=== PATIENT | male | born 1950 | race Caucasian/White ===

== ENCOUNTER 2016-07-31 07:30 | Inpatient (IN) | payer OTHER ==
--- NOTE | 2016-07-29 22:09 | Pre-op HX & Phy Repo 2 SIG ---
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 The patient has a past history of ulcerative colitis and underwent proctocolectomy with conventional Susannah ileostomy in 1972. In April 2012, he underwent creation of a King type of Kock pouch continent ileostomy in [place]. He required several revisions and then in April 2015 underwent resection of his failed continent ileostomy with creation of a new King continent ileostomy. In February 2016 he required laparotomy with revision of the valve and access segment and stoma because of difficulty with intubation and incontinence. The patient initially did well after that surgery, but in early April 2016 developed prolapse of the nipple valve. He tried to use a large stent, but two of them may have gone through a wide open stoma into the pouch and he has used a baby pacifier to keep the prolapse reduced. He does not have any difficulty with intubation once he reduces the prolapse and he is having no incontinence. He keeps the baby pacifier in place within the stoma with a binder. He has intermittently required Flagyl orally for symptoms of pouchitis with rumbling and increased gas. The patient is scheduled to undergo endoscopy of his pouch and laparotomy to correct the prolapse of his King pouch. PAST MEDICAL HISTORY: MEDICATIONS: Norvasc for hypertension, Inderal for essential tremor, Cipro and/or Flagyl as needed for pouchitis. ALLERGIES: none. OPERATIONS: Please see complete list at the end of this dictation. In addition, he has undergone repair of an inguinal hernia, but is not sure which side. PHYSICAL EXAMINATION: VITAL SIGNS: The patient is 6 feet 5 inches and approximately 250 pounds. [place] and will be examined upon arrival and dictated separately. IMPRESSION: 1. 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 History of ulcerative colitis. 3. Hypertension. 4. Essential tremor. 5. STATUS POST MULTIPLE ABDOMINAL OPERATIONS: 5.1. Proctocolectomy and Susannah ileostomy in 1972. 5.2. King continent ileostomy in 04/2012. 5.3. Creation of new valve and collar for King pouch in 10/2012. 5.4. Creation of another new valve and collar in 02/2013. 5.5. Repair of King pouch slipped valve in 02/2014. 5.6. Revision of King pouch and repair of incisional hernia and parastomal hernia in 10/2014 (all of these operations were performed elsewhere) 5.7. Laparotomy with resection of failed King continent ileostomy and creation of a new King continent ileostomy pouch 05/02/2015. 5.8. Laparotomy with revision of the King pouch valve, access segment and stoma and repair of recurrent incisional hernia 03/05/2016. DISCUSSION: I have had a complete discussion with the patient regarding the nature of his condition, the need for pouch endoscopy which does not require anesthesia or sedation, which he has been through before, and the need for laparotomy to stabilize the prolapsed valve. I have discussed the general and specific risks of the operation including the potential for continued problems with his pouch despite the best efforts of the surgeons. I will have another full discussion in person when he arrives [place]. Regan Marc M.D. DR: Jaciel JOB#: [id number] CC: DANNY
[~2016-07-31] VITALS: Ht 198.1 cm; Wt 120.2 kg
[~2016-07-31 07:30] MED LIST: AMLODIPINE BESY10 MG ORAL; BENAZEPRIL HCL20 MG ORAL; INDERAL LA60 MG ORAL; MULTI VITAMIN1 EACH ORAL; VITAMIN C1000 M3 PO
[2016-07-31 10:30] VITALS: BP 151/77
[2016-07-31 11:28] LABS: BASOPHILS % (AUTO) 0.9 % (0.0-2.0); EOSINOPHILS % (AUTO) 2.8 % (0.0-3.0); LYMPHOCYTES % (AUTO) 22.5 % (20.0-45.0); MEAN CORPUSCULAR HEMOGLOBIN 30.9 PG (27.0-31.0); MEAN CORPUSCULAR HGB CONC 34.5 G/DL (32.0-36.0); MEAN CORPUSCULAR VOLUME 90 FL (80-99); MONOCYTES % (AUTO) 13.5 % (1.0-10.0); NEUTROPHILS % (AUTO) 60.3 % (45.0-75.0); PLATELET COUNT 273 K/UL (150-450); RED BLOOD COUNT 5.08 M/UL (4.70-6.10); RED CELL DISTRIBUTION WIDTH 11.2 % (11.6-14.8); WHITE BLOOD COUNT 4.4 K/UL (4.8-10.8)
[2016-07-31] MEDS ORDERED: Sodium Bicarbonate 8.4% 50ml Carp IV ONE (11:30)
[2016-07-31] MEDS ORDERED: Heparin 2000 units/Ns 1000ml INJ ONE (11:30)
[2016-07-31] MEDS ORDERED: Lidocaine 1% Plain 30 ml INJ ONE (11:30)
[2016-07-31 11:41] LABS: APPEARANCE,URINE CLEAR; KETONES,URINE NEGATIVE (NEGATIVE); LEUKOCYTE ESTERASE ,URINE NEGATIVE (NEGATIVE); NITRITE,URINE NEGATIVE (NEGATIVE); PH,URINE 5 (4.5-8.0); PROTEIN,URINE 4+ (NEGATIVE); UROBILINOGEN,URINE NORMAL MG/DL (0.0-1.0)
[2016-07-31 11:57] LABS: ALBUMIN/GLOBULIN RATIO 1.5 (1.0-2.7); CALCIUM 9.6 mg/dL (8.6-10.2); CREATININE 1.5 mg/dL (0.7-1.2); TOTAL PROTEIN 7.5 g/dL (6.6-8.7)
[2016-07-31 12:00] VITALS: BP 149/77
[2016-07-31 12:00] LABS: RBC,URINE 0-2 /HPF (0 - 0); SQUAMOUS EPITHELIAL CELL,UR FEW /LPF (NONE/OCC); WBC,URINE 0-2 /HPF (0 - 0)
[2016-07-31] MEDS ORDERED: Sodium Bicarbonate 8.4% 50ml Inj IV ONE (12:00)
[2016-07-31] MEDS: Neomycin Sulfate 500mg Tab ORAL SCH ×3 (12:00→21:05)
--- NOTE | 2016-07-31 12:02 | General Progress Note ---
Progress Note Progress Note H&P dictated. Cr 1.5 Will start IV hydration this afternoon and repeat CBC,BMP in AM before surgery Plan: endoscopy of King pouch DACIA MORELOS July 31, 2016 12:02
--- NOTE | 2016-07-31 12:03 | Pre-Procedure Note/Attestation ---
Pre-Procedure Note/Attestation Complete Prior to Procedure Planned Procedure: not applicable Procedure Narrative: King continent ileostomy pouch endoscopy Indications for Procedure Pre-Operative Diagnosis: Malfunctioning King continent ileostomy with valve prolapse Attestation I attest that I discussed the nature of the procedure; its benefits; risks and complications; and alternatives (and the risks and benefits of such alternatives ), prior to the procedure, with the patient (or the patient's legal screening representative). I attest that, if there was a reasonable possibility of needing a blood transfusion, the patient (or the patient's legal screening representative) was given the [facility] standardized written summary, pursuant to the Lucien Allan Blood Safety Act ([place] Health and Safety Code # 1645, as amended). I attest that I re-evaluated the patient just prior to the surgery and that there has been no change in the patient's H&P, except as documented below: none DACIA MORELOS July 31, 2016 12:03
--- NOTE | 2016-07-31 12:36 | Brief Operative Note ---
Immediate Post Operative Note Operative Note Pre-op Diagnosis: Malfunctioning King continent ileostomy with valve prolapse Procedure: King pouch endoscopy Post-op Diagnosis: distortion of valve tip of King pouch Post-op Diagnosis: same as pre-op Findings: consistent w/pre-op dx studies Surgeon: nataly Anesthesia: other - none Specimen: none Complications: none Condition: stable Estimated Blood Loss: none Drains: other - 28 Fioley to King pouch Implant(s) used?: DACIA Smith July 31, 2016 12:36
--- NOTE | 2016-07-31 13:19 | Diagnostic Imaging Report ---
Indication: Chest Pain Comparison: 05/01/15 A single view chest radiograph was obtained. Findings: The lungs are clear. Heart is normal in size. Aorta is mildly ectatic. There is a left PICC line which is in good position with the tip in the SVC. Bones are unremarkable. In pression: No acute disease. PICC line in good position
[2016-07-31] MEDS: D5 1/2NS w/KCl 20mEq 1,000 ML IV SCH (14:12)
--- NOTE | 2016-07-31 14:15 | Diagnostic Imaging Report ---
Indication: Abdominal pain Comparison: 05/11/15 Single view of the abdomen obtained Findings: Bowel gas pattern is nonspecific. No mass, ectopic calcifications, or abnormal gas collections are identified. Degenerative changes of the lumbar and thoracic spine appear moderate. Surgical clips noted within the abdomen. Impression: No acute findings
--- NOTE | 2016-07-31 15:25 | Anethesia Preoperative Eval ---
Anesthesia Pre-op PMH/ROS General Date of Evaluation: July 31, 2016 Time of Evaluation: 15:20 Anesthesiologist: amandeep ASA Score: ASA 3 Mallampati Score Class I : Soft palate, uvula, fauces, pillars visible Class II: Soft palate, uvula, fauces visible Class III: Soft palate, base of uvula visible Class IV: Only hard plate visible Mallampati Classification: Class II Surgeon: Monico Diagnosis: Malfunctioning continent pouch Surgical Procedure: Ex laparotomy revision of continent pouch Anesthesia History: none Family History: no anesthesia problems Allergies: Coded Allergies: No Known Allergies (Unverified , 07/31/16) Medications: see eMAR Past Medical History Cardiovascular: Reports: HTN, Denies: CAD, NE, arrhythmia, other, valve dz Pulmonary: Denies: COPD, IAD, asthma, other Gastrointestinal/Genitourinary: Reports: GERD, other - UC s/p colectomy, Denies: CRI, ESRD Neurologic/Psychiatric: Denies: CVA, TIA, dementia, depression/anxiety, other Endocrine: Denies: DM, hypothyroidism, other, steroids HEENT: Denies: KOOTENAI (L), KO[place]ENAI (R), cataract (L), cataract (R), glaucoma, other Hematology/Immune: Denies: DVT, anemia, bleeding disorder, other Musculoskeletal/Integumentary: Denies: DDD, DJD, OA, RA, edema, other Other: obesity PMH Narrative: as above PSxH Narrative: Multiple abdominal Sx for creation and maintenance of continence pouch Anesthesia Pre-op Phys. Exam Physician Exam Last Vital Signs Date Time Temp Pulse Resp B/P Pulse Ox O2 Delivery O2 Flow Rate FiO2 07/31/16 12:00 97.0 54 20 149/77 96 Room Air Constitutional: NAD Neurologic: CN 2-12 intact Cardiovascular: RRR, no M/R/G Respiratory: CTA Gastrointestinal: S/NT/ND Airway Exam Mallampati Score: Class III MO: limited Neck: stiff ROM: limited Teeth: intact Dentures: no lower, no upper Anesthesia Pre-op A/P Labs Hematology Test 07/31/16 10:30 White Blood Count 4.4 K/UL (4.8-10.8) L Red Blood Count 5.08 M/UL (4.70-6.10) Hemoglobin 15.7 G/DL (14.2-18.0) Hematocrit 45.6 % (42.0-52.0) Mean Corpuscular Volume 90 FL (80-99) Mean Corpuscular Hemoglobin 30.9 PG (27.0-31.0) Mean Corpuscular Hemoglobin Concent 34.5 G/DL (32.0-36.0) Red Cell Distribution Width 11.2 % (11.6-14.8) L Platelet Count 273 K/UL (150-450) Mean Platelet Volume 5.0 FL (6.5-10.1) L Neutrophils (%) (Auto) 60.3 % (45.0-75.0) Lymphocytes (%) (Auto) 22.5 % (20.0-45.0) Monocytes (%) (Auto) 13.5 % (1.0-10.0) H Eosinophils (%) (Auto) 2.8 % (0.0-3.0) Basophils (%) (Auto) 0.9 % (0.0-2.0) Coagulation Test 07/31/16 10:30 Prothrombin Time 10.0 SEC (9.30-11.50) Prothromb Time International Ratio 1.0 (0.9-1.1) Activated Partial Thromboplast Time 29 SEC (23-33) Chemistry Test 07/31/16 10:30 Sodium Level 140 mEQ/L (135-145) Potassium Level 4.0 mEQ/L (3.4-4.9) Chloride Level 100 mEQ/L (98-107) Carbon Dioxide Level 25 mEQ/L (20-30) Anion Gap 15 (5-15) Blood Urea Nitrogen 19 mg/dL (7-23) Creatinine 1.5 mg/dL (0.7-1.2) H Estimat Glomerular Filtration Rate 47.0 mL/min (>60) Glucose Level 90 mg/dL (74-106) Calcium Level 9.6 mg/dL (8.6-10.2) Total Bilirubin 0.8 mg/dL (0.0-1.2) Aspartate Amino Transf (AST/SGOT) 32 U/L (5-40) Alanine Aminotransferase (ALT/SGPT) 33 U/L (3-41) Alkaline Phosphatase 67 U/L (40-129) Total Protein 7.5 g/dL (6.6-8.7) Albumin 4.5 g/dL (3.5-5.2) Globulin 3.0 g/dL Albumin/Globulin Ratio 1.5 (1.0-2.7) Risk Assessment & Plan Assessment: ASA 3 Plan: GA with ANYI JORDAN M.D. July 31, 2016 15:25
[2016-07-31 16:00] VITALS: BP 160/91
[2016-07-31] MEDS ORDERED: D5 1/2NS w/KCl 20mEq 1,000 ML IV SCH (18:00)
[2016-07-31 20:00] VITALS: BP 150/89
[2016-07-31] MEDS ORDERED: Zolpidem 5mg tab ORAL PRN ×2 (21:00→23:00)
--- NOTE | 2016-07-31 21:48 | Pre-op HX & Phy Repo 2 SIG ---
DATE OF ADMISSION: 07/31/2016 HISTORY OF PRESENT ILLNESS: The [place] now [place]. Please see previously dictated history. PHYSICAL EXAMINATION: GENERAL: He is well developed and well nourished, 6 foot 5 inches and approximately 250 pounds. HEENT: Within normal limits. LUNGS: Clear. HEART: Regular rhythm. BREASTS: Without masses. ABDOMEN: Soft. There is a long left paramedian scar with a small incisional hernia in the upper third of the incision. The stoma of the King continent ileostomy pouch is low on the right lower quadrant with prolapse of the nipple valve, which can be manually reduced. Testes and scrotum: negative RECTAL: Status post proctectomy. EXTREMITIES: Without edema. Pulses 2+ femoral to pedal bilateral NEUROLOGIC: Physiologic. IMPRESSION: 1. 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 History of ulcerative colitis. 3. Hypertension. 4. Essential tremor. 5. Status post multiple abdominal operations 5.1. Proctocolectomy and Susannah ileostomy in 1972. 5.2. King continent ileostomy in April 2012. 5.3. Creation of new valve and collar for King pouch in October 2012 5.4. Creation of another new valve and collar in February 2013. 5.5. Repair of King pouch slipped valve in February 2014. 5.6. Revision of King pouch and repair of incisional hernia and parastomal hernia in October 2014 (all of these operations were performed elsewhere) 5.7. Laparotomy with resection of failed continent ileostomy and creation of new King pouch on 05/02/2015. 5.8. Laparotomy with revision of King pouch valve, access segment and stoma and repair of recurrent incisional hernia on 03/05/2016. DISCUSSION: The patient will undergo endoscopy and will be prepared with insertion of a dual lumen PICC line, bowel prep, intravenous hydration and continuous drainage of his King pouch with preparation for surgery in the morning. This will include laparotomy with opening the pouch and re-stabilizing the nipple valve to prevent any additional prolapse. I have discussed the nature of the surgery, indications, alternatives, options, and risks. He understands and agrees to proceed. Regan Marc M.D. DR: TONEY JOB#: [id number] CC: DANNY
--- NOTE | 2016-07-31 23:28 | Procedure Note ---
DATE OF PROCEDURE: 07/31/2016 ENDOSCOPIST: Regan Marc M.D. ANESTHESIA: None. SEDATION: None. PRE-ENDOSCOPY DIAGNOSES: 1. Malfunctioning King continent ileostomy with prolapse of the nipple valve. 2. History of ulcerative colitis. 3. Status post multiple abdominal operations including proctocolectomy, King pouch, and multiple revisions. POST-ENDOSCOPY DIAGNOSES: 1. Malfunctioning King continent ileostomy with prolapse of the nipple valve. 2. History of ulcerative colitis. 3. Status post multiple abdominal operations including proctocolectomy, King pouch, and multiple revisions. ENDOSCOPY PERFORMED: King continent ileostomy pouch endoscopy. FINDINGS: Prolapse of the nipple valve, which can be manually reduced with a normal pouch and mild distortion of the tip of the valve. DESCRIPTION OF PROCEDURE: The patient was positioned supine in the GI lab without any anesthesia or sedation given or required. Using a GIF-P140 endoscope, the endoscope was introduced into the stoma and a straight passageway into the pouch was observed with the distance to the tip of the valve approximately 9 cm. The pouch was distensible and mucosa appeared normal. I could not visualize any retained stents. Retroflexed views revealed the nipple valve to be fairly well formed, but with a fishmouth deformity of the tip even though the patient is not having any incontinence. Withdrawal views confirmed the above findings. Following the endoscopy, I was able to readily insert a 28-Swedish Mohr catheter into the pouch and evacuated retained air and connected it to gravity drainage bag, taped it to the skin with a dressing over the stoma. The patient tolerated the endoscopy well and will undergo surgery tomorrow for prolapse of the nipple valve of his King pouch. Regan Marc M.D. DR: Jaciel JOB#: [id number] CC:
[2016-08-01] VITALS (14 sets, daily range): BP systolic 123–154; BP diastolic 74–102
[2016-08-01] MEDS: Ampicillin/Sulbactam Sod 3 GM in NS 110 ML IVPB SCH ×3 (00:23→11:38)
[2016-08-01] MEDS: metroNIDAZOLE 500mg 100 ML IVPB SCH ×3 (00:23→11:38)
[2016-08-01] MEDS: D5 1/2NS w/KCl 20mEq 1,000 ML IV SCH (00:23)
[2016-08-01] MEDS ORDERED: Heparin 5000 units/ml inj SUBQ ONE (05:30)
--- NOTE | 2016-08-01 07:14 | Pre-Procedure Note/Attestation ---
Pre-Procedure Note/Attestation Complete Prior to Procedure Planned Procedure: not applicable Procedure Narrative: laparotomy and revision King continent ileostomy, possible gastrostomy Indications for Procedure Pre-Operative Diagnosis: Malfunctioning King continent ileostomy with valve prolapse Attestation I attest that I discussed the nature of the procedure; its benefits; risks and complications; and alternatives (and the risks and benefits of such alternatives ), prior to the procedure, with the patient (or the patient's legal customer loyalty representative). I attest that, if there was a reasonable possibility of needing a blood transfusion, the patient (or the patient's legal customer loyalty representative) was given the [facility] standardized written summary, pursuant to the Lucien Colfax Blood Safety Act ([place] Health and Safety Code # 1645, as amended). I attest that I re-evaluated the patient just prior to the surgery and that there has been no change in the patient's H&P, except as documented below: none DACIA MORELOS August 01, 2016 07:14
[2016-08-01] MEDS ORDERED: Sterile Water Irrig 1000ml IRRIG ONE (07:30)
[2016-08-01] MEDS ORDERED: Nimbex 2mg/ml Inj 10ML IVP ONE (07:30)
[2016-08-01] MEDS ORDERED: fentaNYL 100 mcg/2 mL IV ONE (07:30)
[2016-08-01] MEDS ORDERED: Propofol 10mg/ml 20ml IV ONE (07:30)
[2016-08-01] MEDS ORDERED: NS Irrig 1000ml ONE (07:30)
[2016-08-01] MEDS ORDERED: Midazolam 2mg/2ml Inj ONE (07:30)
[2016-08-01] MEDS ORDERED: ePHEDrine 50mg/ml Inj ONE (07:30)
[2016-08-01 07:54] LABS: BASOPHILS % (AUTO) 0.5 % (0.0-2.0); EOSINOPHILS % (AUTO) 3.4 % (0.0-3.0); LYMPHOCYTES % (AUTO) 20.7 % (20.0-45.0); MEAN CORPUSCULAR HEMOGLOBIN 31.5 PG (27.0-31.0); MEAN CORPUSCULAR HGB CONC 35.3 G/DL (32.0-36.0); MEAN CORPUSCULAR VOLUME 89 FL (80-99); MEAN PLATELET VOLUME 5.3 FL (6.5-10.1); MONOCYTES % (AUTO) 16.1 % (1.0-10.0); NEUTROPHILS % (AUTO) 59.3 % (45.0-75.0); PLATELET COUNT 187 K/UL (150-450); RED BLOOD COUNT 4.21 M/UL (4.70-6.10); RED CELL DISTRIBUTION WIDTH 11.4 % (11.6-14.8); WHITE BLOOD COUNT 3.8 K/UL (4.8-10.8)
[2016-08-01 08:07] LABS: CALCIUM 8.5 mg/dL (8.6-10.2); CREATININE 1.3 mg/dL (0.7-1.2); GLOMERULAR FILTRATION RATE 55.4 mL/min (>60); POTASSIUM 3.5 mEQ/L (3.4-4.9)
[2016-08-01] MEDS ORDERED: Bacitracin 50000 Units Vial IRRIG ONE (08:26)
--- NOTE | 2016-08-01 08:41 | Brief Operative Note ---
Immediate Post Operative Note Operative Note Pre-op Diagnosis: malfunctioning BCIR Procedure: laparotomy, revision BCIR ilieostomy Post-op Diagnosis: same as pre-op Surgeon: nataly Phlebotomy Specialist: melly Anesthesiologist: susana Anesthesia: general Specimen: none Complications: none Condition: stable Fluids: 0.9 NS LYNNE RAMEY August 01, 2016 08:41
--- NOTE | 2016-08-01 08:42 | Immediate Post-Op Evaluation ---
Immediate Post-Op Evalulation Immediate Post-Op Evalulation Procedure: laparotomy, revision BCIR ileostomy Date of Evaluation: August 01, 2016 IV Fluids: 0.9 NS LYNNE RAMEY August 01, 2016 08:42
[2016-08-01] MEDS: Propranolol LA 60mg cap ORAL SCH (09:00)
--- NOTE | 2016-08-01 09:10 | Diagnostic Imaging Report ---
Indication: buttermaker helper venous access Findings: After the indications, procedure, risks, complications, and alternatives of the procedure were explained, written informed consent was obtained. The left upper extremity was prepped with alcohol. All elements of maximal sterile barrier technique were followed including usage of a cap, mask, sterile gown, sterile gloves, hand hygiene and a large sterile sheet. Sonographic evaluation of the upper extremity was performed demonstrating a patent and compressible basilic vein. Access was obtained under real-time ultrasound guidance and digital image was saved and archived. An .018 wire was introduced. Needle exchanged for a 5 Bruneian peel-away sheath. Measurements were obtained. A 5 Bruneian dual-lumen Power PICC line catheter was cut to 55 cm and introduced over the wire. Peel-away sheath and wire were removed.Catheter was secured to the skin using 2-0 Prolene suture. Both ports aspirate and flush easily. Fluoroscopic Images show distal tip in the superior vena cava. Total fluoroscopic times O.3 minutes Impression: Successful placement of an upper extremity PICC line catheter
--- NOTE | 2016-08-01 09:11 | Immediate Post-Op Evaluation ---
Immediate Post-Op Evalulation Immediate Post-Op Evalulation Procedure: laparotomy, revision BCIR ileostomy Date of Evaluation: August 01, 2016 Time of Evaluation: 10:03 IV Fluids: 750ml Estimated Blood Loss: 50ml Urinary Output: 525ml Blood Pressure Systolic: 153 Blood Pressure Diastolic: 102 Pulse Rate: 55 Respiratory Rate: 10 O2 Sat by Pulse Oximetry: 100 Temperature (Fahrenheit): 97.0 Pain Score (1-10): 0 Nausea: No Vomiting: No Complications n/a Patient Status: awake, reacts, patent, extubated Hydration Status: adequate Drug: unasyn/ flagyl Given Within 1 Hr of Incision: Yes LYNNE RAMEY August 01, 2016 09:11
[2016-08-01] MEDS: D5 1/4NS w/KCl 20mEq 1,000 ML IV SCH ×4 (09:59→22:21)
--- NOTE | 2016-08-01 10:05 | Brief Operative Note ---
Immediate Post Operative Note Operative Note Pre-op Diagnosis: Malfunctioning King continent ileostomy with valve prolapse Procedure: Laparotomy and revision King continent ileostomy Post-op Diagnosis: same Post-op Diagnosis: same as pre-op Findings: consistent w/pre-op dx studies Surgeon: nataly Bookkeeping Service Sales Agent: hemal Anesthesiologist: tristian Anesthesia: general Specimen: none Complications: none Condition: stable Fluids: see anesthesia record Estimated Blood Loss: volume - 50ml Drains: other - 28 Mohr to King pouch Implant(s) used?: DACIA Smith August 01, 2016 10:05
--- NOTE | 2016-08-01 10:06 | Immediate Post-Op Evaluation ---
Immediate Post-Op Evalulation Immediate Post-Op Evalulation Procedure: laparotomy, revision BCIR ileostomy Date of Evaluation: August 01, 2016 Time of Evaluation: 10:06 Nausea: No Vomiting: No Patient Status: awake Given Within 1 Hr of Incision: Yes Eagle Butts MD August 01, 2016 10:06
--- NOTE | 2016-08-01 10:07 | Anethesia Preoperative Eval ---
Anesthesia Pre-op PMH/ROS General Date of Evaluation: August 01, 2016 Time of Evaluation: 07:00 Anesthesiologist: tristian ASA Score: ASA 2 Mallampati Score Class I : Soft palate, uvula, fauces, pillars visible Class II: Soft palate, uvula, fauces visible Class III: Soft palate, base of uvula visible Class IV: Only hard plate visible Mallampati Classification: Class II Allergies: Coded Allergies: No Known Allergies (Unverified , 07/31/16) Anesthesia Pre-op Phys. Exam Physician Exam Last Vital Signs Date Time Temp Pulse Resp B/P Pulse Ox O2 Delivery O2 Flow Rate FiO2 08/01/16 04:00 97.3 61 20 151/91 94 Room Air Airway Exam Mallampati Score: Class III Anesthesia Pre-op A/P Labs Hematology Test 07/31/16 10:30 08/01/16 06:00 White Blood Count 4.4 K/UL (4.8-10.8) L 3.8 K/UL (4.8-10.8) L Red Blood Count 5.08 M/UL (4.70-6.10) 4.21 M/UL (4.70-6.10) L Hemoglobin 15.7 G/DL (14.2-18.0) 13.3 G/DL (14.2-18.0) L Hematocrit 45.6 % (42.0-52.0) 37.5 % (42.0-52.0) L Mean Corpuscular Volume 90 FL (80-99) 89 FL (80-99) Mean Corpuscular Hemoglobin 30.9 PG (27.0-31.0) 31.5 PG (27.0-31.0) H Mean Corpuscular Hemoglobin Concent 34.5 G/DL (32.0-36.0) 35.3 G/DL (32.0-36.0) Red Cell Distribution Width 11.2 % (11.6-14.8) L 11.4 % (11.6-14.8) L Platelet Count 273 K/UL (150-450) 187 K/UL (150-450) Mean Platelet Volume 5.0 FL (6.5-10.1) L 5.3 FL (6.5-10.1) L Neutrophils (%) (Auto) 60.3 % (45.0-75.0) 59.3 % (45.0-75.0) Lymphocytes (%) (Auto) 22.5 % (20.0-45.0) 20.7 % (20.0-45.0) Monocytes (%) (Auto) 13.5 % (1.0-10.0) H 16.1 % (1.0-10.0) H Eosinophils (%) (Auto) 2.8 % (0.0-3.0) 3.4 % (0.0-3.0) H Basophils (%) (Auto) 0.9 % (0.0-2.0) 0.5 % (0.0-2.0) Coagulation Test 07/31/16 10:30 Prothrombin Time 10.0 SEC (9.30-11.50) Prothromb Time International Ratio 1.0 (0.9-1.1) Activated Partial Thromboplast Time 29 SEC (23-33) Chemistry Test 07/31/16 10:30 08/01/16 06:00 Sodium Level 140 mEQ/L (135-145) 143 mEQ/L (135-145) Potassium Level 4.0 mEQ/L (3.4-4.9) 3.5 mEQ/L (3.4-4.9) Chloride Level 100 mEQ/L (98-107) 102 mEQ/L (98-107) Carbon Dioxide Level 25 mEQ/L (20-30) 27 mEQ/L (20-30) Anion Gap 15 (5-15) 14 (5-15) Blood Urea Nitrogen 19 mg/dL (7-23) 13 mg/dL (7-23) Creatinine 1.5 mg/dL (0.7-1.2) H 1.3 mg/dL (0.7-1.2) H Estimat Glomerular Filtration Rate 47.0 mL/min (>60) 55.4 mL/min (>60) Glucose Level 90 mg/dL (74-106) 97 mg/dL (74-106) Calcium Level 9.6 mg/dL (8.6-10.2) 8.5 mg/dL (8.6-10.2) L Total Bilirubin 0.8 mg/dL (0.0-1.2) Aspartate Amino Transf (AST/SGOT) 32 U/L (5-40) Alanine Aminotransferase (ALT/SGPT) 33 U/L (3-41) Alkaline Phosphatase 67 U/L (40-129) Total Protein 7.5 g/dL (6.6-8.7) Albumin 4.5 g/dL (3.5-5.2) Globulin 3.0 g/dL Albumin/Globulin Ratio 1.5 (1.0-2.7) Eagle Butts MD August 01, 2016 10:07
[2016-08-01] MEDS ORDERED: Hydromorphone 0.5mg/0.5ml inj IVP PRN (10:15)
[2016-08-01] MEDS ORDERED: Ketorolac 30mg Inj IV PRN (10:15)
[2016-08-01] MEDS ORDERED: Midazolam 2mg/2ml Inj IVP PRN (10:15)
[2016-08-01] MEDS ORDERED: fentaNYL 100 mcg/2 mL IV PRN (10:15)
[2016-08-01] MEDS ORDERED: LORazepam 1mg tab SL PRN ×2 (11:00→21:00)
[2016-08-01] MEDS: PCA HYDROmorphone 1mg/ml 30 ML IV PRN (11:00)
[2016-08-01] MEDS ORDERED: Acetaminophen 650mg/20.3ml ORAL PRN (11:00)
[2016-08-01] MEDS ORDERED: Rate Change PCA 1 Each MISC PRN (11:00)
[2016-08-01] MEDS ORDERED: DiphenhydrAMINE 50mg/ml Inj IVP PRN (11:00)
[2016-08-01] MEDS ORDERED: Naloxone 0.4mg/ml Inj IVP PRN (11:00)
[2016-08-01] MEDS: Ampicillin/Sulbactam Sod 3 GM in NS 110 ML IV SCH (17:56)
[2016-08-01] MEDS: metroNIDAZOLE 500mg 100 ML IV SCH (17:56)
[2016-08-01] MEDS ORDERED: D5 1/2NS 1000ml IV ONE (18:34)
[2016-08-01] MEDS ORDERED: NS 550ML IV ONE (18:34)
[2016-08-01] MEDS ORDERED: Tubing IV Secondary IV ONE (18:34)
[2016-08-01] MEDS: PCA shift volume MISC SCH (19:13)
--- NOTE | 2016-08-01 21:19 | Operative Note - Dictated ---
DATE OF OPERATION: 08/01/2016 SURGEON: Regan Marc M.D. PRODUCT LINE MANAGER SURGEON: Tez Marcelo M.D. ANESTHESIOLOGIST: Dr. Butts. TYPE OF ANESTHESIA: General endotracheal. PREOPERATIVE DIAGNOSES: 1. 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 History of ulcerative colitis. 3. Status post multiple abdominal operations. 3.1. Proctocolectomy and Susannah ileostomy in 1972. 3.2. King continent ileostomy in April 2012. 3.3. Creation of new valve and collar for King pouch in October 2012 3.4. Creation of another new valve and collar in February 2013. 3.5. Repair of King pouch slipped valve in February 2014. 3.6. Revision of King pouch and repair of incisional and parastomal hernia in October 2014. (all of these operations were performed elsewhere). 3.7. Laparotomy with resection of failed King continent ileostomy and creation of a new King continent ileostomy pouch on 05/02/2015. 3.8. Laparotomy with revision of K[place] pouch valve, access segment and stoma and repair of recurrent incisional hernia on 03/05/2016. POSTOPERATIVE DIAGNOSES: 1. 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 History of ulcerative colitis. 3. Status post multiple abdominal operations. 3.1. Proctocolectomy and Susannah ileostomy in 1972. 3.2. King continent ileostomy in April 2012. 3.3. Creation of new valve and collar for King pouch in October 2012 3.4. Creation of another new valve and collar in February 2013. 3.5. Repair of King pouch slipped valve in February 2014. 3.6. Revision of King pouch and repair of incisional and parastomal hernia in October 2014. (all of these operations were performed elsewhere). 3.7. Laparotomy with resection of failed King continent ileostomy and creation of a new King continent ileostomy pouch on 05/02/2015. 3.8. Laparotomy with revision of King pouch valve, access segment and stoma and repair of recurrent incisional hernia on 03/05/2016. OPERATION PERFORMED: Laparotomy with revision of King continent ileostomy prolapsed valve. DESCRIPTION OF PROCEDURE: The patient was taken to the operating room and under general endotracheal anesthesia with sequential compression device stockings in place and having received preoperative intravenous antibiotics and subcutaneous heparin, the patient was prepped and draped in the usual fashion. Initially the stoma in the right lower quadrant was sealed with a Tegaderm. The previous left paramedian incision was reopened in its lower two-thirds excising the skin scar. The fascia was somewhat attenuated without definite incisional hernia. There were moderate adhesions to the undersurface of the abdominal wall and adhesions into the pelvis and to the bladder. The pouch was mobilized together with the afferent bowel. Palpation revealed that the patient had been using silicone stents to keep the prolapse reduced, but the stents had disappeared. There were 3 stents within the pouch. A 28-[place] Mohr was put through the stoma into the pouch. A pouch enterotomy was created along the previous pouch suture line between stay sutures of 3-0 silk. One stent was within the pouch and was removed. The other two stents had migrated into the collar segment, but were manipulated backwards into the pouch and removed. The nipple valve was grasped with Imtiaz clamps and was well formed circumferentially. I used two sutures of 2-0 PDS on SH needles and placed horizontal mattress sutures between the tip of the valve and the anterior pouch wall. I then made a separate pouch enterotomy near the apex of the pouch, inserted the PI 55 stapling device with 4.8 mm aydee and put the lower blade of the stapler into the lumen of the valve segment and fired the stapler to secure it to the anterior pouch wall. The small enterotomy was closed with continuous full-thickness locking 2-0 chromic followed by imbricating 3-0 silk. The 28-[place] Mohr was able to be inserted into the pouch. The pouch enterotomy was closed with continuous full-thickness locking 2-0 chromic followed by imbricating 3-0 silk sutures. Now the afferent bowel was manually occluded and the pouch distended with 500 mL of saline. There was no extravasation from the suture lines or staple lines. Upon removing the catheter, the pouch was seen to be continent. The catheter was reintroduced and the pouch decompressed and lay very nicely back down into the pelvis under the bladder. The field was copiously irrigated and hemostasis secured with cautery. The abdominal wall had been protected with antibiotic soaked lap sponges. After ascertaining that hemostasis was secure, the 28-[place] Mohr catheter was appropriately positioned in the pouch and sutured to the skin with two sutures of 2-0 silk. It was flushed and connected to a gravity drainage bag. Some hypertrophic granulations of the stoma were treated with cautery. The incision was closed after noting that the upper abdomen was completely sealed with adhesions and I did not feel that extending the procedure to do a gastrostomy was warranted. The anesthesiologist placed an orogastric tube to decompress the stomach and then removed it. The incision was closed in one layer with continuous #1 Prolene starting at both ends and inverting the knots. The subcutaneous tissues were copiously irrigated with antibiotic solution and skin closed with aydee. Dry sterile dressings were applied. Final sponge and needle counts were correct. The patient tolerated the procedure well and left the operating room in good condition. Regan Marc M.D. DR: Jaciel JOB#: [id number] CC: DANNY
[2016-08-02] VITALS: BP 147/84
[2016-08-02] MEDS: metroNIDAZOLE 500mg 100 ML IV SCH ×5 (00:28→18:45)
[2016-08-02] MEDS: Ampicillin/Sulbactam Sod 3 GM in NS 110 ML IV SCH ×4 (00:28→18:45)
[2016-08-02 04:00] VITALS: BP 161/86
[2016-08-02 06:56] LABS: CALCIUM 7.6 mg/dL (8.6-10.2); CREATININE 1.3 mg/dL (0.7-1.2); GLOMERULAR FILTRATION RATE 55.4 mL/min (>60); POTASSIUM 3.9 mEQ/L (3.4-4.9)
[2016-08-02 07:05] LABS: BASOPHILS % (AUTO) 0.2 % (0.0-2.0); EOSINOPHILS % (AUTO) 0.7 % (0.0-3.0); LYMPHOCYTES % (AUTO) 6.1 % (20.0-45.0); MEAN CORPUSCULAR HEMOGLOBIN 30.9 PG (27.0-31.0); MEAN CORPUSCULAR HGB CONC 34.4 G/DL (32.0-36.0); MEAN CORPUSCULAR VOLUME 90 FL (80-99); MEAN PLATELET VOLUME 5.5 FL (6.5-10.1); MONOCYTES % (AUTO) 11.8 % (1.0-10.0); NEUTROPHILS % (AUTO) 81.3 % (45.0-75.0); PLATELET COUNT 179 K/UL (150-450); RED CELL DISTRIBUTION WIDTH 11.4 % (11.6-14.8); WHITE BLOOD COUNT 9.2 K/UL (4.8-10.8)
[2016-08-02] MEDS: PCA shift volume MISC SCH ×2 (07:10→19:00)
[2016-08-02] MEDS: D5 1/4NS w/KCl 20mEq 1,000 ML IV SCH ×2 (07:12→16:42)
[2016-08-02 08:57] VITALS: BP 151/84
--- NOTE | 2016-08-02 09:32 | General Progress Note ---
Progress Note Progress Note AVSS Comfortable with Dilaudid TYPESETTER PERFORATOR OPERATOR. chest clear Cor - reg rhythm Abdomen soft , mild distention, incision clean, stoma pink Urine 1450 BCIR ileo 610 enteric WBC 9200df Hgb 13.6 (stable from pre-op) BUN 10 Cr 1.3 (1.5 on admission) Imp. Ileus Plan: NPO Continue Mohr (pelvic dissection) Ambulate with assistance DACIA MORELOS August 02, 2016 09:32
[2016-08-02] MEDS: Propranolol LA 60mg cap ORAL SCH (09:35)
[2016-08-02] MEDS: PCA HYDROmorphone 1mg/ml 30 ML IV PRN (10:59)
[2016-08-02 12:00] VITALS: BP 149/90
[2016-08-02 16:00] VITALS: BP 140/87
--- NOTE | 2016-08-02 17:26 | 48 Hour Post Anesthesia Eval ---
Post Anesthesia Evaluation Procedure: laparotomy, revision BCIR ileostomy Date of Evaluation: August 02, 2016 Time of Evaluation: 15:35 Blood Pressure Systolic: 149 0: 90 Pulse Rate: 72 Respiratory Rate: 18 Temperature (Fahrenheit): 98.2 O2 Sat by Pulse Oximetry: 93 Airway: patent Nausea: No Vomiting: No Pain Intensity: 2 Hydration Status: adequate Cardiopulmonary Status: at baseline Mental Status/LOC: patient returned to baseline Post-Anesthesia Complications: 0 Follow-up care needed: N/A - further care as per primary team TIFF CH M.D. August 02, 2016 17:26
[2016-08-02 20:00] VITALS: BP 148/75
[2016-08-03] MEDS: Ampicillin/Sulbactam Sod 3 GM in NS 110 ML IV SCH ×4 (00:05→18:20)
[2016-08-03] MEDS: metroNIDAZOLE 500mg 100 ML IV SCH ×4 (00:05→18:20)
[2016-08-03] MEDS: D5 1/4NS w/KCl 20mEq 1,000 ML IV SCH ×3 (01:45→18:20)
[2016-08-03 04:00] VITALS: BP 150/80
[2016-08-03] MEDS: PCA shift volume MISC SCH ×2 (07:25→19:21)
[2016-08-03 08:00] VITALS: BP 149/77
[2016-08-03] MEDS: Propranolol LA 60mg cap ORAL SCH (09:02)
[2016-08-03 09:25] LABS: BASOPHILS % (AUTO) 0.2 % (0.0-2.0); EOSINOPHILS % (AUTO) 1.9 % (0.0-3.0); LYMPHOCYTES % (AUTO) 7.5 % (20.0-45.0); MEAN CORPUSCULAR HEMOGLOBIN 30.6 PG (27.0-31.0); MEAN CORPUSCULAR HGB CONC 33.9 G/DL (32.0-36.0); MEAN CORPUSCULAR VOLUME 90 FL (80-99); MEAN PLATELET VOLUME 6.1 FL (6.5-10.1); MONOCYTES % (AUTO) 11.5 % (1.0-10.0); NEUTROPHILS % (AUTO) 78.9 % (45.0-75.0); PLATELET COUNT 130 K/UL (150-450); RED BLOOD COUNT 4.19 M/UL (4.70-6.10); RED CELL DISTRIBUTION WIDTH 11.7 % (11.6-14.8); WHITE BLOOD COUNT 8.3 K/UL (4.8-10.8)
--- NOTE | 2016-08-03 09:28 | General Progress Note ---
Progress Note Progress Note AVSS Ambulated in hallways. No c/o pain but getting basal infusion with COAL CHUTE WORKER. Abdomen mildly distended, soft, incision clean Urine 2650 BCIR ileo 770 Labs - pending Imp. Stable with ileus Plan: NPO, continue Mohr D/C continuous basal infusion of COAL CHUTE WORKER DACIA MORELOS August 03, 2016 09:28
[2016-08-03 09:36] LABS: ANION GAP 15 (5-15); CALCIUM 7.9 mg/dL (8.6-10.2); CARBON DIOXIDE 24 mEQ/L (20-30); CHLORIDE 99 mEQ/L (98-107); CREATININE 1.2 mg/dL (0.7-1.2); GLOMERULAR FILTRATION RATE > 60 mL/min (>60); HEMOLYSIS 7; POTASSIUM 3.6 mEQ/L (3.4-4.9); SODIUM 138 mEQ/L (135-145)
[2016-08-03] MEDS ORDERED: DiphenhydrAMINE 50mg/ml Inj IVP PRN (10:00)
[2016-08-03] MEDS ORDERED: PCA HYDROmorphone 1mg/ml 30 ML IV PRN ×2 (10:00)
[2016-08-03] MEDS ORDERED: Rate Change PCA 1 Each MISC PRN (10:00)
[2016-08-03] MEDS ORDERED: Naloxone 0.4mg/ml Inj IVP PRN (10:00)
[2016-08-03 12:00] VITALS: BP 157/78
[2016-08-03 16:39] VITALS: BP 142/81
[2016-08-03 20:00] VITALS: BP 150/88
--- NOTE | 2016-08-03 20:17 | Cardiology Report ---
APPROVED REPORT EKG Measurement Heart [id number] Sinus bradycardia with 1st degree AV block Incomplete left bundle branch block Borderline ECG
[2016-08-04] VITALS (7 sets, daily range): BP systolic 137–164; BP diastolic 74–86
[2016-08-04] MEDS: Ampicillin/Sulbactam Sod 3 GM in NS 110 ML IV SCH ×4 (00:08→17:23)
[2016-08-04] MEDS: metroNIDAZOLE 500mg 100 ML IV SCH ×2 (00:08→05:37)
[2016-08-04] MEDS: D5 1/4NS w/KCl 20mEq 1,000 ML IV SCH ×3 (01:15→17:24)
[2016-08-04] MEDS: PCA shift volume MISC SCH ×2 (07:00→19:08)
[2016-08-04] MEDS ORDERED: Naloxone 0.4mg/ml Inj IVP PRN (08:30)
[2016-08-04] MEDS ORDERED: Rate Change PCA 1 Each MISC PRN (08:30)
[2016-08-04] MEDS ORDERED: PCA HYDROmorphone 1mg/ml 30 ML IV PRN (08:30)
--- NOTE | 2016-08-04 08:39 | General Progress Note ---
Progress Note Progress Note AVSS Not using ANVIL SEATING PRESS OPERATOR - no pain. Ambulating 3x daily in hallways Abdomen soft, mild distention, healing nicely Urine 2750 BCIR ileo 575 08/03: WBC 8300 Hgb 12.8 (down) Platelets 130,000 (down) BUN 7 Cr 1.2 (down and normal now) Imp. Stable with mild ileus Plan: Continue NPO D/C urinary Mohr f/u labs in AM with iron panel,B12 and folate levels D/C Flagyl - continue DACIA Ocampo August 04, 2016 08:39
[2016-08-04] MEDS: Propranolol LA 60mg cap ORAL SCH (09:03)
[2016-08-04] MEDS ORDERED: DiphenhydrAMINE 50mg/ml Inj IVP PRN (10:00)
[2016-08-05] VITALS: BP 149/83
[2016-08-05] MEDS: Ampicillin/Sulbactam Sod 3 GM in NS 110 ML IV SCH ×3 (00:53→11:56)
[2016-08-05] MEDS: D5 1/4NS w/KCl 20mEq 1,000 ML IV SCH ×2 (01:59→09:17)
[2016-08-05 04:00] VITALS: BP 164/85
[2016-08-05] MEDS: PCA shift volume MISC SCH (07:00)
[2016-08-05 08:00] VITALS: BP 155/84
[2016-08-05 08:44] LABS: BASOPHILS % (AUTO) 0.9 % (0.0-2.0); EOSINOPHILS % (AUTO) 5.4 % (0.0-3.0); LYMPHOCYTES % (AUTO) 17.2 % (20.0-45.0); MEAN CORPUSCULAR HGB CONC 33.8 G/DL (32.0-36.0); MEAN CORPUSCULAR VOLUME 92 FL (80-99); MEAN PLATELET VOLUME 5.7 FL (6.5-10.1); MONOCYTES % (AUTO) 14.3 % (1.0-10.0); NEUTROPHILS % (AUTO) 62.1 % (45.0-75.0); PLATELET COUNT 202 K/UL (150-450); RED BLOOD COUNT 3.94 M/UL (4.70-6.10); RED CELL DISTRIBUTION WIDTH 11.3 % (11.6-14.8); WHITE BLOOD COUNT 4.5 K/UL (4.8-10.8)
[2016-08-05 09:12] LABS: ANION GAP 14 (5-15); CALCIUM 8.1 mg/dL (8.6-10.2); CARBON DIOXIDE 24 mEQ/L (20-30); CHLORIDE 102 mEQ/L (98-107); CREATININE 1.2 mg/dL (0.7-1.2); GLOMERULAR FILTRATION RATE > 60 mL/min (>60); HEMOLYSIS 1; IRON 35 ug/dL (59-158); POTASSIUM 3.2 mEQ/L (3.4-4.9); SODIUM 140 mEQ/L (135-145); TOTAL IRON BINDING CAPACITY 154 ug/dL (250-400)
[2016-08-05] MEDS: Propranolol LA 60mg cap ORAL SCH (09:17)
--- NOTE | 2016-08-05 09:57 | General Progress Note ---
Progress Note Progress Note AVSS Not using [employer] at all. Voiding well without Mohr Abdomen soft, protruberant but not distended, incision clean Urine 900+ BCIR ileo 1040 WBC 4500 Hgb 12.2 Platelets up 202,000 K 3.2 Iron 35 59-158) B12 415 Imp: ileus resolved iron deficiency, and low B12 level Plan: Clear liquid diet Increase KCL in IV fluids D/C Unasyn Venofer 100mg IV daily x 5; B12 1000mcg IM x 1 D/C [employer] DACIA MORELOS August 05, 2016 09:57
[2016-08-05] MEDS ORDERED: Norco 5mg/325mg tab ORAL PRN (10:15)
[2016-08-05] MEDS ORDERED: Vitamin B12 1000mcg/ml Inj IM ONE (11:00)
[2016-08-05] MEDS ORDERED: D5 1/2NS w/KCl 40meq 1000ml 1,000 ML IV SCH (11:00)
[2016-08-05 12:00] VITALS: BP 144/70
[2016-08-05 16:00] VITALS: BP 145/79
[2016-08-05] MEDS: D5 1/2NS w/KCl 40meq 1000ml 1,000 ML IV SCH (19:30)
[2016-08-05 20:00] VITALS: BP 153/87
[2016-08-05] MEDS ORDERED: Zolpidem 5mg tab ORAL PRN (21:00)
[2016-08-05] MEDS: Iron Sucrose 100 MG in NS 55 ML IVPB SCH (21:30)
[2016-08-06] VITALS: BP 149/80
[2016-08-06 04:00] VITALS: BP 149/80
[2016-08-06 08:00] VITALS: BP 140/77
[2016-08-06] MEDS: Propranolol LA 60mg cap ORAL SCH (08:46)
[2016-08-06] MEDS: D5 1/2NS w/KCl 40meq 1000ml 1,000 ML IV SCH (08:46)
--- NOTE | 2016-08-06 09:01 | General Progress Note ---
Progress Note Progress Note AVSS Denies pain or cramping or other GI symptoms. Tolerated clear liquids well Abdomen - upper abdominal distention and tympanitic, incision clean Urine 2600 BCIR ileo 1140 Imp. Doing well but more distended today despite good ileostomy output Plan: Maintain clear liquid diet - add supplements If distention persists, or symptoms develop, will need to resume npo again and do abd. XRays DACIA MORELOS August 06, 2016 09:01
[2016-08-06 12:00] VITALS: BP 134/80
[2016-08-06 16:00] VITALS: BP 139/75
[2016-08-06 20:00] VITALS: BP 151/93
[2016-08-06] MEDS: Iron Sucrose 100 MG in NS 55 ML IVPB SCH (21:33)
[2016-08-07] VITALS: BP 148/80
[2016-08-07 04:00] VITALS: BP 157/81
[2016-08-07 06:45] LABS: BASOPHILS % (AUTO) 1.1 % (0.0-2.0); EOSINOPHILS % (AUTO) 4.1 % (0.0-3.0); LYMPHOCYTES % (AUTO) 18.9 % (20.0-45.0); MEAN CORPUSCULAR HEMOGLOBIN 30.6 PG (27.0-31.0); MEAN CORPUSCULAR HGB CONC 33.7 G/DL (32.0-36.0); MEAN CORPUSCULAR VOLUME 91 FL (80-99); MEAN PLATELET VOLUME 5.7 FL (6.5-10.1); MONOCYTES % (AUTO) 13.4 % (1.0-10.0); NEUTROPHILS % (AUTO) 62.4 % (45.0-75.0); PLATELET COUNT 182 K/UL (150-450); RED BLOOD COUNT 4.37 M/UL (4.70-6.10); RED CELL DISTRIBUTION WIDTH 11.1 % (11.6-14.8); WHITE BLOOD COUNT 4.2 K/UL (4.8-10.8)
[2016-08-07 07:03] LABS: ALANINE AMINOTRANSFERASE 23 U/L (3-41); ALBUMIN/GLOBULIN RATIO 1.1 (1.0-2.7); ANION GAP 17 (5-15); ASPARTATE AMINO TRANSFERASE 27 U/L (5-40); CALCIUM 8.6 mg/dL (8.6-10.2); CARBON DIOXIDE 24 mEQ/L (20-30); CHLORIDE 99 mEQ/L (98-107); CREATININE 1.1 mg/dL (0.7-1.2); GLOMERULAR FILTRATION RATE > 60 mL/min (>60); HEMOLYSIS 6; POTASSIUM 3.2 mEQ/L (3.4-4.9); SODIUM 140 mEQ/L (135-145); TOTAL PROTEIN 6.3 g/dL (6.6-8.7)
[2016-08-07 08:00] VITALS: BP 141/51
--- NOTE | 2016-08-07 08:17 | General Progress Note ---
Progress Note Progress Note AVSS. No GI distress - tolerating clear liquids + supplements Abdomen soft, not tympanitic now, healing well Urine 1874 BCIR ileo 186 very watery WBC 4200 Hgb up 13.9 K 3.2 BUN 9 Cr 1.1 Albumin 3.4 Imp: Excessive ileostomy effluent from King Pouch Plan: BCIR low residue diet KCL po 40meq x 2 today Send stool for C. Difficile toxin Maintain continuous drainage of King Continent Ileostomy DACIA MORELOS August 07, 2016 08:17
[2016-08-07] MEDS: KCl 10% 40mEq/30ml liquid ORAL SCH ×2 (08:30→18:05)
[2016-08-07] MEDS: Propranolol LA 60mg cap ORAL SCH (08:30)
[2016-08-07] MEDS ORDERED: LORazepam 1mg tab SL PRN ×2 (09:00→21:00)
[2016-08-07 12:00] VITALS: BP 141/91
[2016-08-07 16:00] VITALS: BP 143/78
[2016-08-07 20:00] VITALS: BP 146/84
[2016-08-07] MEDS: Iron Sucrose 100 MG in NS 55 ML IVPB SCH (21:34)
[2016-08-07] MEDS ORDERED: NS 550ML IV ONE (22:54)
[2016-08-07] MEDS ORDERED: NS Irrig 1000ml ONE (22:54)
[2016-08-07] MEDS ORDERED: Tubing IV Secondary IV ONE (22:54)
[2016-08-08] VITALS: BP 152/85
[2016-08-08 04:00] VITALS: BP 137/76
[2016-08-08 08:00] VITALS: BP 130/80
[2016-08-08] MEDS: Propranolol LA 60mg cap ORAL SCH (09:06)
--- NOTE | 2016-08-08 10:24 | General Progress Note ---
Progress Note Progress Note AVSS. Tolerating low residue diet without any GI symptoms, but abdomen is distended and tympanitic. Incision clean, stoma pink. Urine 900 BCIR ileo 1870 C. diff toxin - negative Imp. Abdominal distention Plan: STAT 2 view abdomen XRay DACIA MORELOS August 08, 2016 10:24
--- NOTE | 2016-08-08 11:35 | Diagnostic Imaging Report ---
Indication: Abdominal pain Comparison: 07/31/16 Single view of the abdomen obtained Findings: Bowel gas pattern is nonspecific. There are skin aydee and sutures noted in the lower abdomen. Degenerative changes are noted in the lumbar spine. No mass, ectopic calcifications, or abnormal gas collections are identified. Impression: No acute findings Status post recent surgery
[2016-08-08 12:00] VITALS: BP 134/80
[2016-08-08] MEDS ORDERED: NS Irrig 1000ml ONE (15:17)
[2016-08-08 16:00] VITALS: BP 152/85
[2016-08-08 20:00] VITALS: BP 129/79
[2016-08-08] MEDS: Iron Sucrose 100 MG in NS 55 ML IVPB SCH (20:27)
[2016-08-09] VITALS: BP 133/57
[2016-08-09 04:00] VITALS: BP 137/92
[2016-08-09 07:28] LABS: EOSINOPHILS % (AUTO) 3.3 % (0.0-3.0); LYMPHOCYTES % (AUTO) 15.6 % (20.0-45.0); MEAN CORPUSCULAR HEMOGLOBIN 30.7 PG (27.0-31.0); MEAN CORPUSCULAR HGB CONC 34.2 G/DL (32.0-36.0); MEAN CORPUSCULAR VOLUME 90 FL (80-99); MONOCYTES % (AUTO) 13.1 % (1.0-10.0); PLATELET COUNT 316 K/UL (150-450); RED BLOOD COUNT 4.58 M/UL (4.70-6.10); RED CELL DISTRIBUTION WIDTH 11.1 % (11.6-14.8); WHITE BLOOD COUNT 5.7 K/UL (4.8-10.8)
[2016-08-09 07:42] LABS: CALCIUM 9.1 mg/dL (8.6-10.2); CREATININE 1.4 mg/dL (0.7-1.2); GLOMERULAR FILTRATION RATE 50.9 mL/min (>60); POTASSIUM 4.3 mEQ/L (3.4-4.9)
[2016-08-09 08:00] VITALS: BP 131/77
[2016-08-09] MEDS: Propranolol LA 60mg cap ORAL SCH (09:19)
[2016-08-09] MEDS ORDERED: metroNIDAZOLE 500mg tab ORAL STA (10:02)
--- NOTE | 2016-08-09 10:08 | General Progress Note ---
Progress Note Progress Note AVSS Feels fine. Abdomen remains mildly distended and tympanitic ABD XRay slightly increased small bowel gas Urine 2350 BCIR ileo 1870 with odor WBC 5700 Hgb 14 BUN up 19 Cr up 1.4 Imp. 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
[2016-08-09] MEDS ORDERED: Ascorbic Acid 500mg tab ORAL PRN (10:15)
[2016-08-09] MEDS: D5 1/4NS w/KCl 20mEq 1,000 ML IV SCH ×2 (11:00→20:16)
[2016-08-09 12:00] VITALS: BP 132/78
[2016-08-09] MEDS: metroNIDAZOLE 250mg tab ORAL SCH ×2 (12:08→18:20)
[2016-08-09 16:00] VITALS: BP 141/85
[2016-08-09 20:00] VITALS: BP 153/81
[2016-08-09] MEDS: Iron Sucrose 100 MG in NS 55 ML IVPB SCH (20:17)
[2016-08-10] VITALS: BP 136/75
[2016-08-10 04:00] VITALS: BP 140/77
[2016-08-10] MEDS: D5 1/4NS w/KCl 20mEq 1,000 ML IV SCH ×2 (06:17→17:09)
[2016-08-10 07:28] LABS: BASOPHILS % (AUTO) 1.1 % (0.0-2.0); EOSINOPHILS % (AUTO) 3.2 % (0.0-3.0); LYMPHOCYTES % (AUTO) 16.6 % (20.0-45.0); MEAN CORPUSCULAR HEMOGLOBIN 30.9 PG (27.0-31.0); MEAN CORPUSCULAR HGB CONC 34.3 G/DL (32.0-36.0); MEAN CORPUSCULAR VOLUME 90 FL (80-99); MEAN PLATELET VOLUME 5.2 FL (6.5-10.1); MONOCYTES % (AUTO) 13.9 % (1.0-10.0); NEUTROPHILS % (AUTO) 65.3 % (45.0-75.0); PLATELET COUNT 334 K/UL (150-450); RED BLOOD COUNT 4.44 M/UL (4.70-6.10); RED CELL DISTRIBUTION WIDTH 11.4 % (11.6-14.8); WHITE BLOOD COUNT 5.3 K/UL (4.8-10.8)
[2016-08-10 07:39] LABS: CALCIUM 8.8 mg/dL (8.6-10.2); CREATININE 1.3 mg/dL (0.7-1.2); GLOMERULAR FILTRATION RATE 55.4 mL/min (>60); POTASSIUM 4.5 mEQ/L (3.4-4.9)
[2016-08-10 08:00] VITALS: BP 123/75
[2016-08-10] MEDS: Propranolol LA 60mg cap ORAL SCH (09:13)
[2016-08-10] MEDS: metroNIDAZOLE 250mg tab ORAL SCH ×3 (09:14→17:09)
--- NOTE | 2016-08-10 10:52 | General Progress Note ---
Progress Note Progress Note AVSS Eating well - ileostomy output is thicker on po Flagyl for pouchitis Abdomen soft, still some upper abdominal tympany on percussion. [place] removed and steristrips applied - well healed Urine 1900 BCIR ileo down 1540 BUN 18 Cr 1.3 (both down) Imp. Improved fluid balance and pouchitis Plan: Continue IV fluids until tonight, then d/c and remove PIC line (received Venofer 500mg total) Provide discharge supplies To remove indwelling King Pouch catheter on 08/13 and begin q3-4 h self-intubations; f/u with ms 08/14 DACIA MORELOS August 10, 2016 10:52
[2016-08-10 12:00] VITALS: BP 126/77
[2016-08-10 16:00] VITALS: BP 135/83
[2016-08-10 20:00] VITALS: BP 137/80
[2016-08-11 04:00] VITALS: BP 131/81
[2016-08-11 08:00] VITALS: BP 134/85
--- NOTE | 2016-08-11 08:21 | General Progress Note ---
Progress Note Progress Note AVSS Doing well. PIC line removed after IV fluids completed last night Abdomen soft, well healed Urine 2124 BCIR ileo 1819 Imp. Stable Plan: Discharge Rx Flagyl 250mg #40 Full supplies/limitations/instructions provided/discussed To remove BCIR catheter on 08/13 and start self-intubations f/u with me 08/14 and prn DACIA MORELOS August 11, 2016 08:21
[2016-08-11 08:41] VITALS: BP 134/89
[2016-08-11] MEDS: metroNIDAZOLE 250mg tab ORAL SCH (08:41)
[2016-08-11] MEDS: Propranolol LA 60mg cap ORAL SCH (08:41)
== END 2016-08-11 09:50 | disposition home or self-care (01) | DRG 348 ==
LOC: SDSOVERFLO 09:52 → 3E 10:30
PROC: 02HV33Z Insertion of Infusion Device into Superior Vena Cava, Percutaneous Approach (ICD-10-PCS; 2016-07-31)
PROC: 0DJD8ZZ Inspection of Lower Intestinal Tract, Via Natural or Artificial Opening Endoscopic (ICD-10-PCS; principal; 2016-07-31 12:11)
PROC: 0WQFXZ2 Repair Abdominal Wall, Stoma, External Approach (ICD-10-PCS; 2016-08-01)
DX: K94.13 Enterostomy malfunction (principal); K56.7 Ileus, unspecified; I10 Essential (primary) hypertension; K91.850 Pouchitis; Y83.3 Surgical operation with formation of external stoma as the cause of abnormal reaction of the patient, or of later complication, without mention of misadventure at the time of the procedure; G25.0 Essential tremor; Z87.19 Personal history of other diseases of the digestive system
CPT/HCPCS: 36415; 36569; 71010; 74020; 76937; 80048; 80053; 81003; 82607; 82746; 83540; 83550; 85025; 85610; 85730; 86850; 86870; 86900; 86901; 87324; 93005; 94003; 94150; J2250; J2405

== ENCOUNTER 2016-09-04 10:00 | Inpatient (IN) | payer OTHER ==
--- NOTE | 2016-09-03 14:00 | Pre-op HX & Phy Repo 2 SIG ---
DATE OF ADMISSION: 09/04/2016 HISTORY OF PRESENT ILLNESS: The patient is a 66-year-old male, in overall good health with an acute parastomal hernia involving his King continent ileostomy and mucosal prolapse of the King pouch stoma. The patient has a past history of ulcerative colitis and underwent proctocolectomy with conventional Susannah ileostomy in 1972. He underwent creation of a King continent ileostomy in 2012 in [place] with multiple revisions by surgeons in [place] and [place]. In April 2015, he underwent laparotomy with resection of his failed King continent ileostomy and creation of a new King continent ileostomy. He required laparotomy with revision of the valve, access segment and stoma and repair of recurrent incisional hernia in February of 2016 and on 08/01/2016 he underwent laparotomy with revision of King continent ileostomy valve prolapse with stabilization of the nipple valve. The patient was discharged with an indwelling catheter on 08/11/2016 also taking Flagyl for pouchitis. After the patient returned home and after several days with the indwelling catheter, the catheter was removed and he has been able to intubate without any difficulty. However, he has noticed a bulging around the area of the stoma and prolapse of the mucosa. The patient is going to undergo revision of the stoma and repair of whatever parastomal hernia is present. PAST MEDICAL HISTORY/MEDICATIONS: Norvasc for hypertension, Inderal for essential tremor, Cipro and/or Flagyl as needed for pouchitis. ALLERGIES: None. OPERATIONS: See complete list at the end of this dictation. In addition, he has undergone repair of an inguinal hernia, but is not sure which side. PHYSICAL EXAMINATION: VITAL SIGNS: The patient is 6 foot 5 inches and approximately 215 pounds. [place] and will be examined upon arrival and dictated separately. IMPRESSION: 1. Malfunctioning King continent ileostomy with parastomal hernia and stoma mucosal prolapse. 2. History of ulcerative colitis. 3. Hypertension. 4. Essential tremor. 5. Status post multiple abdominal operations. 5.1. Proctocolectomy and Susannah ileostomy in 1972. 5.2. King continent ileostomy April 2012. 5.3. Creation of new valve and collar for King pouch October 2012. 5.4. Creation of another new valve and colic February 2013. 5.5. Repair of King pouch slipped valve February 2014. 5.6. Revision of King pouch and repair of incisional and parastomal hernia October of 2014 (all of these operations were performed elsewhere). 5.7. Laparotomy with resection of failed King continent ileostomy and creation of a new King continent ileostomy pouch 05/02/2015. 5.8. Laparotomy with revision of King pouch valve, access segment and stoma and repair of recurrent incisional hernia. 03/05/2016. 5.9. Laparotomy with revision of King continent ileostomy prolapse valve 08/01/2016. DISCUSSION: I have had a full discussion with the patient regarding the nature of his condition, the nature of the planned surgery which will not require a laparotomy, indications, alternatives, options and risks. I will have another full discussion in person with the patient when [place]. He will receive intravenous hydration starting on the day of admission, together with bowel prep and continuous drainage of the King pouch and preoperative intravenous antibiotics and subcutaneous heparin. Regan Marc M.D. DR: Epiafnio JOB#: [id number] CC: DANNY
[~2016-09-04] VITALS: Ht 195.6 cm; Wt 115.7 kg
--- NOTE | 2016-09-04 10:05 | Anethesia Preoperative Eval ---
Anesthesia Pre-op PMH/ROS General Date of Evaluation: Sep 04, 2016 Time of Evaluation: 10:01 Anesthesiologist: Felicitas ASA Score: ASA 3 Mallampati Score Class I : Soft palate, uvula, fauces, pillars visible Class II: Soft palate, uvula, fauces visible Class III: Soft palate, base of uvula visible Class IV: Only hard plate visible Mallampati Classification: Class II Surgeon: Monico Diagnosis: Malfunctioning continent pouch Surgical Procedure: Revision of continent pouch stoma Anesthesia History: none Family History: no anesthesia problems Allergies: Coded Allergies: No Known Allergies (Unverified , 07/31/16) Medications: see eMAR Past Medical History Cardiovascular: Reports: HTN - stable, Denies: CAD, GA, arrhythmia, other, valve dz Pulmonary: Denies: COPD, IDA, asthma, other Gastrointestinal/Genitourinary: Reports: GERD, other - UC s/p total colectomy, Denies: CRI, ESRD Neurologic/Psychiatric: Denies: CVA, TIA, dementia, depression/anxiety, other Endocrine: Denies: DM, hypothyroidism, other, steroids HEENT: Denies: [place] (L), [place] (R), cataract (L), cataract (R), glaucoma, other Hematology/Immune: Reports: anemia - mild, Denies: DVT, bleeding disorder, other Musculoskeletal/Integumentary: Denies: DDD, DJD, OA, RA, edema, other Other: obesity PMH Narrative: as above PSxH Narrative: multiple abdominal Sx for creation and maintenance of continent pouch Anesthesia Pre-op Phys. Exam Physician Exam Constitutional: NAD Neurologic: CN 2-12 intact Cardiovascular: RRR, no M/R/G Respiratory: CTA Gastrointestinal: S/NT/ND Airway Exam Mallampati Score: Class II MO: full Neck: stiff ROM: limited Teeth: intact Dentures: no lower, no upper Anesthesia Pre-op A/P Labs see chart Risk Assessment & Plan Assessment: ASA 3 Plan: GA with LMA Pre-Antibiotics Drug: as scheduled ANYI ADAMS M.D. Sep 04, 2016 10:05
[2016-09-04 12:30] VITALS: BP 134/60
[2016-09-04] MEDS: Neomycin Sulfate 500mg Tab ORAL SCH ×3 (12:39→22:04)
--- NOTE | 2016-09-04 13:26 | General Progress Note ---
Progress Note Progress Note H&P dictated. Small discrete parastomal hernia just cephalad to King Continent Ileostomy Pouch stoma with redundant prolapsing mucosa about 3cm above skin with straining when standing erect. Abdominal wall fascia is weak in epigastric portion of midline incision, but no bulging with straining except possible weakness to right of umbilical area. Full discussion with patient re peristomal incision with repair of hernia, possibly with mesh, and revision of stoma.including indications, alternatives, options and risks. Will place indwelling pouch catheter to continuous drainage, and bowel prep, IV hydration, IV antibiotics, pre-op heparin SQ DACIA MORELOS Sep 04, 2016 13:26
[2016-09-04 13:27] LABS: APPEARANCE,URINE CLEAR; KETONES,URINE NEGATIVE (NEGATIVE); LEUKOCYTE ESTERASE ,URINE 1+ (NEGATIVE); NITRITE,URINE NEGATIVE (NEGATIVE); PH,URINE 5 (4.5-8.0); PROTEIN,URINE 3+ (NEGATIVE); UROBILINOGEN,URINE NORMAL MG/DL (0.0-1.0)
[2016-09-04 13:43] LABS: BACTERIA,URINE OCCASIONAL /HPF; MUCUS,URINE FEW /LPF (NONE/OCC); RBC,URINE 0-2 /HPF (0 - 0); SQUAMOUS EPITHELIAL CELL,UR OCCASIONAL /LPF (NONE/OCC)
[2016-09-04 13:53] LABS: BASOPHILS % (AUTO) 0.9 % (0.0-2.0); EOSINOPHILS % (AUTO) 4.7 % (0.0-3.0); LYMPHOCYTES % (AUTO) 22.5 % (20.0-45.0); MEAN CORPUSCULAR HEMOGLOBIN 31.4 PG (27.0-31.0); MEAN CORPUSCULAR HGB CONC 34.4 G/DL (32.0-36.0); MEAN CORPUSCULAR VOLUME 91 FL (80-99); MEAN PLATELET VOLUME 4.7 FL (6.5-10.1); MONOCYTES % (AUTO) 13.4 % (1.0-10.0); NEUTROPHILS % (AUTO) 58.5 % (45.0-75.0); PLATELET COUNT 207 K/UL (150-450); RED BLOOD COUNT 4.42 M/UL (4.70-6.10); RED CELL DISTRIBUTION WIDTH 11.8 % (11.6-14.8); WHITE BLOOD COUNT 4.1 K/UL (4.8-10.8)
[2016-09-04 14:08] LABS: INR 0.9 (0.9-1.1); PROTHROMBIN TIME 9.6 SEC (9.30-11.50)
[2016-09-04 14:11] LABS: ALBUMIN/GLOBULIN RATIO 1.5 (1.0-2.7); CALCIUM 9.1 mg/dL (8.6-10.2); CREATININE 1.6 mg/dL (0.7-1.2); GLOMERULAR FILTRATION RATE 43.6 mL/min (>60); POTASSIUM 4.2 mEQ/L (3.4-4.9); TOTAL PROTEIN 7.5 g/dL (6.6-8.7)
--- NOTE | 2016-09-04 14:19 | Diagnostic Imaging Report ---
Indication: Cough Technique: Single portable AP view of the chest. Findings: Comparison: Jul 31 2016 Mild elongation of thoracic aorta again noted. PICC has been removed. The bones and extra pulmonary soft tissues, cardiomediastinal silhouette, pulmonary vasculature and parenchyma, and pleural surfaces remain otherwise unremarkable. IMPRESSION: No evidence of acute cardiopulmonary disease, unchanged Removal of PICC.
[2016-09-04] MEDS: D5 1/2NS w/KCl 20mEq 1,000 ML IV SCH (17:46)
[2016-09-04 18:00] VITALS: BP 165/85
[2016-09-04 19:05] VITALS: BP 139/78
[2016-09-04 20:00] VITALS: BP 153/91
[2016-09-04] MEDS ORDERED: Zolpidem 5mg tab ORAL PRN (21:00)
--- NOTE | 2016-09-04 22:00 | Pre-op HX & Phy Repo 2 SIG ---
DATE OF ADMISSION: 09/04/2016 The patient [place] now [place]. Please see previously dictated history. PHYSICAL EXAMINATION: GENERAL: He is well developed and well nourished in no acute distress. HEENT: Within normal limits. LUNGS: Clear. HEART: Regular rhythm. BREASTS: Without masses. ABDOMEN: Soft and somewhat protuberant. There is a well-healed long midline scar. In the epigastric portion, there appears to be bulging like diastasis, but when the patient stands erect and strains with Valsalva, there is no herniation. There is only one area of weakness of 1 cm x 2 cm at the level just above the umbilicus to the right of the scar. The stoma of the King continent ileostomy is low in the right lower quadrant and patulous. When the patient is supine and coughs or strains, there is a parastomal hernia just the size of a fingertip just cephalad to the stoma at approximately 10 o' clock to 11 o'clock with a moderate-sized bulge. When the hernia protrudes, there is marked prolapse of the mucosa of the stoma 2 to 3 cm above the skin. This is confirmed with the patient standing erect and straining. Testes and scrotum within normal limits. RECTAL: Status post proctectomy. EXTREMITIES: Without edema. Pulses 3+ femoral to pedal bilaterally. NEUROLOGIC: Physiologic. IMPRESSION: 1. Malfunctioning King continent ileostomy with recurrent parastomal hernia and mucosal stoma prolapse. 2. History of ulcerative colitis. 3. Status post multiple abdominal operations. 3.1. Proctocolectomy and Susannah ileostomy in 1972. 3.2. King continent ileostomy in April 2012. 3.3. Creation of new valve and collar for King pouch October 2012. 3.4. Creation of another new valve and collar February 2013. 3.5. Repair of King pouch slipped valve in February 2014. 3.6. Revision of King pouch and repair of incisional and parastomal hernia in October 2014 (all of these operations were performed elsewhere). 3.7. Laparotomy with resection of failed King continent ileostomy and creation of a new King continent ileostomy pouch on 05/02/2015. 3.8. Laparotomy with revision of King pouch valve, access segment and stoma, and repair of recurrent incisional hernia on 03/05/2016. 3.9. Laparotomy with revision of King continent ileostomy valve prolapse on 08/01/2016. DISCUSSION: I have had a full discussion with the patient regarding the nature of his condition and the need for surgical repair of this parastomal hernia and mucosal prolapse. He understands that a peristomal incision will be created and redundant stoma tissue excised and the hernia repaired with or without mesh. I have discussed the nature of the surgery, indications, alternatives, options, and risks including bleeding, infection, recurrence with or without mesh, additional difficulties with the stoma or function of the King pouch, deep vein thrombosis despite prophylaxis with heparin and compression stockings, anesthetic reactions, etc. I have advised the patient that I do not feel any procedure is required on the abdominal wall at this time, but only observation and that laparotomy is not required for his current condition. All questions have been answered. He understands and agrees to proceed. Regan Marc M.D. DR: Yaima JOB#: [id number] CC: DANNY
[2016-09-05] VITALS (12 sets, daily range): BP systolic 140–173; BP diastolic 76–93
[2016-09-05] MEDS: D5 1/2NS w/KCl 20mEq 1,000 ML IV SCH (03:19)
[2016-09-05 07:07] LABS: CALCIUM 8.4 mg/dL (8.6-10.2); CREATININE 1.4 mg/dL (0.7-1.2); GLOMERULAR FILTRATION RATE 50.9 mL/min (>60); POTASSIUM 4.2 mEQ/L (3.4-4.9)
[2016-09-05 07:35] LABS: BASOPHILS % (AUTO) 0.8 % (0.0-2.0); LYMPHOCYTES % (AUTO) 25.5 % (20.0-45.0); MEAN CORPUSCULAR HEMOGLOBIN 30.7 PG (27.0-31.0); MEAN CORPUSCULAR HGB CONC 34.2 G/DL (32.0-36.0); MEAN CORPUSCULAR VOLUME 90 FL (80-99); MONOCYTES % (AUTO) 16.4 % (1.0-10.0); NEUTROPHILS % (AUTO) 52.2 % (45.0-75.0); PLATELET COUNT 170 K/UL (150-450); RED BLOOD COUNT 4.14 M/UL (4.70-6.10); RED CELL DISTRIBUTION WIDTH 11.5 % (11.6-14.8); WHITE BLOOD COUNT 3.6 K/UL (4.8-10.8)
[2016-09-05] MEDS ORDERED: Heparin 5000 units/ml inj SUBQ ONE (08:00)
[2016-09-05] MEDS: Benazepril 10mg tab ORAL SCH (08:06)
[2016-09-05] MEDS: Propranolol LA 60mg cap ORAL SCH (08:07)
[2016-09-05] MEDS ORDERED: Ampicillin/Sulbactam Sod 3 GM in NS 110 ML IV SCH ×4 (09:00→12:00)
[2016-09-05] MEDS ORDERED: metroNIDAZOLE 500mg 100 ML IV SCH ×2 (09:00)
--- NOTE | 2016-09-05 09:22 | Pre-Procedure Note/Attestation ---
Pre-Procedure Note/Attestation Complete Prior to Procedure Planned Procedure: not applicable Procedure Narrative: repair King Continent Ileostomy parastomal hernia and revision of stoma Indications for Procedure Pre-Operative Diagnosis: recurrent parastomal hernia and stoma prolapse Attestation I attest that I discussed the nature of the procedure; its benefits; risks and complications; and alternatives (and the risks and benefits of such alternatives ), prior to the procedure, with the patient (or the patient's legal education courses sales representative). I attest that, if there was a reasonable possibility of needing a blood transfusion, the patient (or the patient's legal education courses sales representative) was given the [facility] standardized written summary, pursuant to the [place] Blood Safety Act ([place] Health and Safety Code # 1645, as amended). I attest that I re-evaluated the patient just prior to the surgery and that there has been no change in the patient's H&P, except as documented below:none DACIA MORELOS Sep 05, 2016 09:22
[2016-09-05] MEDS ORDERED: Bacitracin 50000 Units Vial ONE (09:40)
[2016-09-05] MEDS ORDERED: Propofol 10mg/ml 20ml IV ONE (10:00)
[2016-09-05] MEDS ORDERED: fentaNYL 100 mcg/2 mL IV ONE (10:00)
[2016-09-05] MEDS ORDERED: Neostigmine 1mg/ml 10ml Inj ONE (10:00)
[2016-09-05] MEDS ORDERED: Midazolam 2mg/2ml Inj ONE (10:00)
[2016-09-05] MEDS ORDERED: LR 1000ml ONE (10:00)
[2016-09-05] MEDS ORDERED: Sterile Water Irrig 1000ml IRRIG ONE (10:00)
[2016-09-05] MEDS ORDERED: Dexamethasone 4mg/ml vial ONE (10:00)
[2016-09-05] MEDS ORDERED: Succinylcholine 20mg/ml 10ml vial ONE (10:00)
[2016-09-05] MEDS ORDERED: NS Irrig 1000ml ONE (10:00)
[2016-09-05] MEDS ORDERED: LR 1000ml 1,000 ML IVLG SCH (10:22)
--- NOTE | 2016-09-05 10:22 | Immediate Post-Op Evaluation ---
Immediate Post-Op Evalulation Immediate Post-Op Evalulation Procedure: Continent Intestinal Ileostomy Hernia Repair Date of Evaluation: Sep 05, 2016 Time of Evaluation: 11:40 IV Fluids: 1000 LR Blood Products: 0 Estimated Blood Loss: 25 Urinary Output: 0 Blood Pressure Systolic: 173 Blood Pressure Diastolic: 87 Pulse Rate: 54 Respiratory Rate: 16 O2 Sat by Pulse Oximetry: 100 Temperature (Fahrenheit): 97.6 Pain Score (1-10): 0 Nausea: No Vomiting: No Complications 0 Patient Status: awake, reacts, patent, extubated, none Hydration Status: adequate Abbe Colon MD Sep 05, 2016 10:22
[2016-09-05] MEDS ORDERED: NS Irrig 1000ml IRRIG ONE (10:26)
[2016-09-05] MEDS ORDERED: Ketorolac 60mg Inj IV PRN (10:30)
[2016-09-05] MEDS ORDERED: Midazolam 2mg/2ml Inj IVP PRN (10:30)
[2016-09-05] MEDS ORDERED: Ketorolac 30mg Inj IV PRN (10:30)
[2016-09-05] MEDS ORDERED: Meperidine 25mg/0.5ml Inj IV PRN (10:30)
[2016-09-05] MEDS ORDERED: Atropine Inj 1mg/10ml Syr IV PRN (10:30)
[2016-09-05] MEDS ORDERED: LORazepam Inj 2mg/ml 1ml IV PRN (10:30)
[2016-09-05] MEDS ORDERED: Hydromorphone 0.5mg/0.5ml inj IVP PRN (10:30)
[2016-09-05] MEDS ORDERED: Norco 7.5mg/325mg tab ORAL PRN (10:30)
[2016-09-05] MEDS ORDERED: Metoclopramide 10mg/2ml Inj IVP PRN (10:30)
[2016-09-05] MEDS ORDERED: Oxycodone/Acetaminophen 5-325 ORAL PRN ×2 (10:30→11:30)
[2016-09-05] MEDS ORDERED: Norco 5mg/325mg tab ORAL PRN (10:30)
[2016-09-05] MEDS ORDERED: fentaNYL 100 mcg/2 mL IV PRN (10:30)
[2016-09-05] MEDS ORDERED: DiphenhydrAMINE 50mg/ml Inj IVP PRN (10:30)
--- NOTE | 2016-09-05 11:29 | Brief Operative Note ---
Immediate Post Operative Note Operative Note Pre-op Diagnosis: recurrent parastomal hernia and stoma prolapse Procedure: repair recurrent parastomal hernia and revision King Continent Ileostomy stoma Post-op Diagnosis: same Post-op Diagnosis: same as pre-op Findings: consistent w/pre-op dx studies Surgeon: nataly Clinical Nurse Occupational Medicine: hemal Anesthesiologist: jenn Anesthesia: general Specimen: yes - prolapsed stoma Complications: none Condition: stable Fluids: see anesthesia record Estimated Blood Loss: minimal Drains: other - 28 Mohr to King Pouch Implant(s) used?: DACIA Smith Sep 05, 2016 11:29
[2016-09-05] MEDS ORDERED: Acetaminophen 650mg/20.3ml ORAL PRN (11:30)
[2016-09-05] MEDS ORDERED: HYDROmorphone 1mg/ml Carpuject SUBQ PRN (11:30)
[2016-09-05] MEDS ORDERED: LORazepam 1mg tab SL PRN ×2 (12:30→21:00)
[2016-09-05] MEDS: metroNIDAZOLE 500mg 100 ML IV SCH ×2 (13:14→17:35)
[2016-09-05] MEDS ORDERED: D5 1/4NS w/KCl 20mEq 1,000 ML IV SCH ×2 (13:30→19:00)
[2016-09-05] MEDS: Ampicillin/Sulbactam Sod 3 GM in NS 110 ML IV SCH ×2 (14:22→18:30)
--- NOTE | 2016-09-05 17:39 | 48 Hour Post Anesthesia Eval ---
Post Anesthesia Evaluation Procedure: Continent Intestinal Ileostomy Hernia Repair Date of Evaluation: Sep 05, 2016 Time of Evaluation: 17:37 Blood Pressure Systolic: 150 0: 85 Pulse Rate: 62 Respiratory Rate: 17 Temperature (Fahrenheit): 97.2 O2 Sat by Pulse Oximetry: 96 Airway: patent Nausea: No Vomiting: No Pain Intensity: 1 Hydration Status: adequate Cardiopulmonary Status: Stable Mental Status/LOC: patient returned to baseline Follow-up Care/Observations: 0 Post-Anesthesia Complications: 0 Follow-up care needed: N/A Abbe Colon MD Sep 05, 2016 17:39
--- NOTE | 2016-09-05 18:30 | Operative Note - Dictated ---
DATE OF OPERATION: 09/05/2016 SURGEON: Regan Marc M.D. SOCIAL MEDIA JOB TITLES SURGEON: Tez Marcelo M.D. ANESTHESIOLOGIST: Abbe Colon M.D. TYPE OF ANESTHESIA: General with LMA. PREOPERATIVE DIAGNOSES: 1. 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 2. History of ulcerative colitis. 3. Status post multiple abdominal operations. 3.1. Proctocolectomy and Susannah ileostomy in 1972. 3.2. King continent ileostomy in April 2012. 3.3. Creation of new valve and collar for King pouch in October 2012 3.4. Creation of another new valve and collar in February 2013. 3.5. Repair of King pouch slipped valve in February 2014. 3.6. Revision of King pouch and repair of incisional and parastomal hernia in October 2014 (All of these operations were performed elsewhere). 3.7 Laparotomy with resection of failed King continent ileostomy and creation of a new King continent ileostomy pouch on 05/02/2015. 3.8 Laparotomy with revision of King pouch valve, access segment, and stoma and repair of recurrent incisional hernia on 03/05/2016. 3.9 Laparotomy with revision of King continent ileostomy valve prolapse 02/2017 POSTOPERATIVE DIAGNOSES: 1. 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 2. History of ulcerative colitis. 3. Status post multiple abdominal operations. 3.1. Proctocolectomy and Susannah ileostomy in 1972. 3.2. King continent ileostomy in April 2012. 3.3. Creation of new valve and collar for King pouch in October 2012 3.4. Creation of another new valve and collar in February 2013. 3.5. Repair of King pouch slipped valve in February 2014. 3.6. Revision of King pouch and repair of incisional and parastomal hernia in October of 2014 (All of these operations were performed elsewhere). 3.7 Laparotomy with resection of failed King continent ileostomy and creation of a new King continent ileostomy pouch on 05/02/2015. 3.8 Laparotomy with revision of King pouch valve, access segment, and stoma and repair of recurrent incisional hernia on 03/05/2016. 3.9 Laparotomy with revision of King continent ileostomy valve prolapse 02/2017 OPERATION PERFORMED: Repair of parastomal hernia and revision of King pouch stoma. DESCRIPTION OF PROCEDURE: The patient was taken to the operating room, and under general anesthesia by LMA, he was prepped and draped in the usual fashion. He had received preoperative intravenous antibiotics and subcutaneous heparin. A transversely-oriented elliptical incision was made around the stoma extending the incision medially and laterally a short distance. A circumferential dissection was performed down to the fascia achieving hemostasis with cautery. There was a very small hernia defect cephalad and lateral. I used #0 Prolene and placed 2 imbricating sutures cephalad and placed additional #0 Prolene sutures laterally to bring the fascial orifice for the stoma to a normal size. A 28-Nigerian Mohr catheter was kept in the stoma into the pouch to maintain adequate space for the access segment. Then the lateral aspect of the peristomal incision was closed with interrupted 3-0 Vicryl subcutaneous sutures and interrupted subcuticular 4-0 Monocryl sutures. Then the redundant stoma tissue was excised and the new stoma primarily matured with continuous 2-0 chromic locking sutures starting at the 3 and 9 o'clock positions. A very satisfactory stoma was achieved and hemostasis was secure. Throughout the procedure antibiotic irrigation was used in the operative field. Now, the 28-Nigerian Mohr catheter was appropriately positioned in the pouch, confirmed by irrigation, and sutured to the skin with a suture of 2-0 silk and connected to a gravity drainage bag. Dry sterile dressings were applied. Final sponge and needle counts were correct. The patient tolerated the procedure well and left the operating room in good condition. Regan Marc M.D. DR: NYDIA JOB#: [id number] CC: Tez Marcelo MD [facility]
[2016-09-06] MEDS: Ampicillin/Sulbactam Sod 3 GM in NS 110 ML IV SCH ×4 (00:27→17:25)
[2016-09-06] MEDS: metroNIDAZOLE 500mg 100 ML IV SCH ×4 (00:27→17:25)
[2016-09-06 00:52] VITALS: BP 143/86
[2016-09-06 06:45] LABS: MEAN CORPUSCULAR HEMOGLOBIN 32.6 PG (27.0-31.0); MEAN CORPUSCULAR HGB CONC 36.4 G/DL (32.0-36.0); MEAN CORPUSCULAR VOLUME 90 FL (80-99); MEAN PLATELET VOLUME 4.9 FL (6.5-10.1); PLATELET COUNT 184 K/UL (150-450); RED BLOOD COUNT 3.96 M/UL (4.70-6.10); RED CELL DISTRIBUTION WIDTH 11.3 % (11.6-14.8); WHITE BLOOD COUNT 9.7 K/UL (4.8-10.8)
[2016-09-06 07:16] LABS: CALCIUM 8.2 mg/dL (8.6-10.2); CREATININE 1.4 mg/dL (0.7-1.2); GLOMERULAR FILTRATION RATE 50.9 mL/min (>60); POTASSIUM 4.1 mEQ/L (3.4-4.9)
[2016-09-06 07:54] VITALS: BP 143/84
--- NOTE | 2016-09-06 09:12 | General Progress Note ---
Progress Note Progress Note AVSS. Not needing any analgesics. Eating well Abdomen soft, stoma pink with surrounding soft tissue swelling. No bulge with coughing Urine 1375 BCIR ileo 825 WBC 9700 Hgb 12.9 (stable from pre-op) BUN 17 Cr 1.4 (same as pre-op) Imp. Stable Plan: D/C IV fluids Continue Unasyn and Flagyl IV Maintain continuous drainage of King Continent Ileostomy DACIA MORELOS Sep 06, 2016 09:12
[2016-09-06] MEDS ORDERED: Ascorbic Acid 500mg tab ORAL PRN (09:15)
[2016-09-06] MEDS: Propranolol LA 60mg cap ORAL SCH (09:30)
[2016-09-06] MEDS: Benazepril 10mg tab ORAL SCH (09:31)
[2016-09-06] MEDS ORDERED: NS Irrig 1000ml ONE ×2 (09:44→09:56)
[2016-09-06] MEDS ORDERED: Tubing IV Secondary IV ONE (09:56)
[2016-09-06 11:54] VITALS: BP 149/88
[2016-09-06 16:16] VITALS: BP 140/89
[2016-09-06 20:00] VITALS: BP 141/83
[2016-09-07] VITALS: BP 138/79
[2016-09-07] MEDS: metroNIDAZOLE 500mg 100 ML IV SCH ×2 (00:24→04:59)
[2016-09-07] MEDS: Ampicillin/Sulbactam Sod 3 GM in NS 110 ML IV SCH ×4 (00:24→17:23)
[2016-09-07 08:00] VITALS: BP 146/78
[2016-09-07] MEDS: Propranolol LA 60mg cap ORAL SCH (08:49)
[2016-09-07] MEDS: Benazepril 10mg tab ORAL SCH (08:49)
--- NOTE | 2016-09-07 10:22 | General Progress Note ---
Progress Note Progress Note AVSS Doing well. Abdomen soft, continued soft tissue swelling superior to stoma; stoma pink and no bulging Urine 2450 BCIR ileo 1780 Imp. Stable Plan: D/C Flagyl - continue Unasyn Maintain continuous drainage of King Continent Ileostomy DACIA MORELOS Sep 07, 2016 10:22
[2016-09-07 12:00] VITALS: BP 145/80
[2016-09-07 16:00] VITALS: BP 114/86
--- NOTE | 2016-09-07 18:42 | Cardiology Report ---
APPROVED REPORT EKG Measurement Heart [id number] VT [id number] Sinus rhythm with 1st degree AV block Pulmonary disease pattern Left anterior fascicular block Abnormal ECG
[2016-09-07 20:00] VITALS: BP 136/76
[2016-09-08] MEDS: Ampicillin/Sulbactam Sod 3 GM in NS 110 ML IV SCH ×2 (00:13→05:33)
[2016-09-08 00:18] VITALS: BP 148/76
[2016-09-08 08:32] VITALS: BP 149/83
[2016-09-08] MEDS: Propranolol LA 60mg cap ORAL SCH (09:06)
--- NOTE | 2016-09-08 09:06 | General Progress Note ---
Progress Note Progress Note AVSS Doing well. No pain. Abdomen soft, stoma pink with mild soft tissue swelling superiorly BCIR ileo catheter removed - standing and coughing: no bulge, no prolapse Urine 0 BCIR ileo 2024 Imp. Improved High output ileostomy likely due to Ensure with each meal (he wanted this to compensate for his daily multivitamin - told to d/c ensure) Plan: RN supervised BCIR self-intubations q3-4h am to hs and prn D/C Sergey and shiralock Anticipate discharge in AM if doing well DACIA MORELOS Sep 08, 2016 09:06
[2016-09-08] MEDS: Benazepril 10mg tab ORAL SCH (09:07)
[2016-09-08 12:21] VITALS: BP 147/86
[2016-09-08 15:59] VITALS: BP 152/88
[2016-09-08 20:36] VITALS: BP 155/81
[2016-09-09 04:45] VITALS: BP 138/92
[2016-09-09 08:00] VITALS: BP 145/78
--- NOTE | 2016-09-09 08:30 | General Progress Note ---
Progress Note Progress Note AVSS Has intubated his BCIR pouch without difficulty. Abdomen soft; stoma healing nicely without any prolapse or bulging Urine 192 Imp. doing well Plan: Discharge Full supplies/limitations/instructions provided/discussed f/u office 1 week DACIA MORELOS Sep 09, 2016 08:30
[2016-09-09] MEDS: Propranolol LA 60mg cap ORAL SCH (08:48)
[2016-09-09 08:49] VITALS: BP 145/78
[2016-09-09] MEDS: Benazepril 10mg tab ORAL SCH (08:49)
--- NOTE | 2016-09-11 10:43 | Discharge Summary ---
Discharge Summary Hospital Course Date of Admission Sep 04, 2016 at 11:17 Date of Discharge Sep 09, 2016 at 08:56 Admitting Diagnosis HPI Garry Merritt is a 66 year old male who was admitted on Sep 04, 2016 at 11: 17 for King Continent Ileostomy Prolapse Hospital Course The patient is a 66-year-old male, in overall good health with an acute parastomal hernia involving his King continent ileostomy and mucosal prolapse of the King pouch stoma. The patient has a past history of ulcerative colitis and underwent proctocolectomy with conventional Susannah ileostomy in 1972. He underwent creation of a King continent ileostomy in 2012 in [place] with multiple revisions by surgeons in [place] and [place]. In April 2015, he underwent laparotomy with resection of his failed King continent ileostomy and creation of a new King continent ileostomy. He required laparotomy with revision of the valve, access segment and stoma and repair of recurrent incisional hernia in February of 2016 and on 08/01/2016 he underwent laparotomy with revision of King continent ileostomy valve prolapse with stabilization of the nipple valve. The patient was discharged with an indwelling catheter on 08/11/2016 also taking Flagyl for pouchitis. After the patient returned home and after several days with the indwelling catheter, the catheter was removed and he has been able to intubate without any difficulty. However, he has noticed a bulging around the area of the stoma and prolapse of the mucosa. The patient was admitted and on 09/05/16 underwent Repair of parastomal hernia and revision of King pouch stoma. Post-operatively, his pain was controlled, he was continued on IV antibiotics. He had a high output ileostomy likely due to Ensure with each meal (he wanted this to compensate for his daily multivitamin - told to d/c ensure). On the day of discharge: AVSS, Has intubated his BCIR pouch without difficulty. Abdomen soft; stoma healing nicely without any prolapse or bulging Urine 192 Plan: Discharge Full supplies/limitations/instructions provided/discussed f/u office 1 week PREOPERATIVE DIAGNOSES: 1. 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 2. History of ulcerative colitis. 3. Status post multiple abdominal operations. 3.1. Proctocolectomy and Susannah ileostomy in 1972. 3.2. King continent ileostomy in April 2012. 3.3. Creation of new valve and collar for King pouch in October 2012 3.4. Creation of another new valve and collar in February 2013. 3.5. Repair of King pouch slipped valve in February 2014. 3.6. Revision of King pouch and repair of incisional and parastomal hernia in October 2014 (All of these operations were performed elsewhere). 3.7 Laparotomy with resection of failed King continent ileostomy and creation of a new King continent ileostomy pouch on 05/02/2015. 3.8 Laparotomy with revision of King pouch valve, access segment, and stoma and repair of recurrent incisional hernia on 03/05/2016. 3.9 Laparotomy with revision of King continent ileostomy valve prolapse 02/2017 POSTOPERATIVE DIAGNOSES: 1. 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 2. History of ulcerative colitis. 3. Status post multiple abdominal operations. 3.1. Proctocolectomy and Susannah ileostomy in 1972. 3.2. King continent ileostomy in April 2012. 3.3. Creation of new valve and collar for King pouch in October 2012 3.4. Creation of another new valve and collar in February 2013. 3.5. Repair of King pouch slipped valve in February 2014. 3.6. Revision of King pouch and repair of incisional and parastomal hernia in October of 2014 (All of these operations were performed elsewhere). 3.7 Laparotomy with resection of failed King continent ileostomy and creation of a new King continent ileostomy pouch on 05/02/2015. 3.8 Laparotomy with revision of King pouch valve, access segment, and stoma and repair of recurrent incisional hernia on 03/05/2016. 3.9 Laparotomy with revision of King continent ileostomy valve prolapse 02/2017 OPERATION PERFORMED: Repair of parastomal hernia and revision of King pouch stoma. I have been assigned to complete a discharge summary on this account. I was not involved in the patient's management.-- Marlon Thornton NP Discharge Discharge Disposition Patient was discharged to Home (01) Discharge Diagnoses: Anay Thornton NP Sep 11, 2016 10:42
== END 2016-09-09 08:56 | disposition home or self-care (01) | DRG 348 ==
LOC: 3E 11:17
PROC: 0WQF0ZZ Repair Abdominal Wall, Open Approach (ICD-10-PCS; principal; 2016-09-05 10:00)
PROC: 0WQFXZ2 Repair Abdominal Wall, Stoma, External Approach (ICD-10-PCS; principal; 2016-09-05 10:00)
DX: K94.19 Other complications of enterostomy (principal); K43.3 Parastomal hernia with obstruction, without gangrene; I10 Essential (primary) hypertension; Y83.3 Surgical operation with formation of external stoma as the cause of abnormal reaction of the patient, or of later complication, without mention of misadventure at the time of the procedure; Z90.49 Acquired absence of other specified parts of digestive tract; R25.1 Tremor, unspecified
CPT/HCPCS: 36415; 71010; 80048; 80053; 81003; 85025; 85610; 85730; 86850; 86870; 86900; 86901; 93005; 94003; 94150; J2250; J2405; J2710

== ENCOUNTER 2016-12-16 09:57 | Inpatient (IN) | payer OTHER ==
--- NOTE | 2016-12-10 22:01 | Pre-op HX & Phy Repo 2 SIG ---
DATE OF ADMISSION: 12/16/2016 History of Present Illness: The patient is a 66-year-old male in overall good health with a recurrent incisional and parastomal hernia involving the paramedian incision and the right lower quadrant with recurrent prolapse of his King continent ileostomy stoma. The patient has a past history of ulcerative colitis and underwent proctocolectomy with conventional Susannah ileostomy in 1972. He underwent conversion of his malfunctioning conventional ileostomy to a King type of Kock pouch continent ileostomy in 2012 in [place] with multiple revisions by surgeons in [place] and [place]. In April 2015, he underwent surgery by nm with resection of his failed King continent ileostomy and creation of a new King pouch. He has required several revisions including laparotomy with revision of continent ileostomy valve prolapse on 08/01/2016 and repair of recurrent parastomal hernia and revision of stoma on 09/05/2016. Despite all of this, the patient has developed failure of the entire right lower quadrant of the abdominal wall with marked bulging and recurrent prolapse, which reduces readily when the patient lies supine. The patient is able to catheterize his continent ileostomy pouch without difficulty and is not having any incontinence. He is going to undergo laparotomy with relocation of the stoma, probably higher in the right lower quadrant. Ideally, it would be relocated to the left lower quadrant, but he has a left paramedian incision. MEDICATIONS: Amlodipine, Benazepril and Primidone for hypertension, Inderal for essential tremor, and Cipro and/or Flagyl as needed for pouchitis. Operations: See complete list at the end of this dictation. He has also undergone inguinal hernia repair, but is not sure which side. ALLERGIES: None. PHYSICAL EXAMINATION: General: The patient is 6 foot 5 inches and approximately 215 pounds. [place] and will be examined upon arrival and dictated separately. IMPRESSION: 1. Malfunctioning King continent ileostomy with recurrent ventral incisional hernia and recurrent continent ileostomy parastomal hernia with stoma prolapse. 2. History of ulcerative colitis. 3. Hypertension. 4. Essential tremor. 5. Status post multiple abdominal operations. 5.1. Proctocolectomy and Susannah ileostomy in 1972. 5.2. King continent ileostomy in April 2012. 5.3. Creation of new valve and collar for King pouch in October 2012 5.4. Creation of another new valve and collar in February 2013. 5.5. Repair of King pouch slipped valve in February 2014. 5.6. Revision of King pouch and repair of incisional and parastomal hernia in October 2014 (all of these operations were performed elsewhere). 5.7. Laparotomy with resection of failed King continent ileostomy and creation of a new King continent ileostomy pouch on 05/02/2015. 5.8. Laparotomy with revision of King pouch valve, access segment and stoma and repair of recurrent incisional hernia on 03/05/2016. 5.9. Laparotomy with revision of King continent ileostomy valve prolapse on 08/01/2016. 5.10. Repair of recurrent parastomal hernia and revision of King pouch stoma on 09/05/2016. I have had a full discussion with the patient regarding the nature of his condition, the nature of the planned surgical procedure including laparotomy and relocation of the stoma and reconstruction of the recurrent right lower quadrant and ventral incisional hernia. I will have another discussion in person [place]. I have discussed the indications, alternatives, options, and risks including bleeding, infection, injury to adjacent structures or organs, recurrent difficulties with pouch or abdominal wall etc. All questions will be answered. Regan Marc M.D. DR: TONEY JOB#: [id number] CC: DANNY
[~2016-12-16] VITALS: Ht 193 cm; Wt 97.5 kg
[2016-12-16] MEDS ORDERED: Zolpidem 5mg tab ORAL PRN (10:45)
[2016-12-16 10:46] VITALS: BP 129/79
--- NOTE | 2016-12-16 11:04 | General Progress Note ---
Progress Note Progress Note H&P dictated. Recurrent parastomal hernia from King Continent Ileostomy stoma involving much of lower RLQ. Also incisional hernia upper 1/3 with intact fascia above and below to pubis. Left paramedian incision precludes relocation of stoma to LLQ so it must be moved higher on right side plus mesh repair of the hernia x 2. Full discussion with patient. Plan: King Pouch endoscopy, bowel prep PIC line, IV hydration, continuous drainage of Continent Ileostomy pouch. Surgery in [place] Dec 16, 2016 11:04
--- NOTE | 2016-12-16 11:05 | Pre-Procedure Note/Attestation ---
Pre-Procedure Note/Attestation Complete Prior to Procedure Planned Procedure: not applicable Procedure Narrative: Fernando Continent Ileostomy pouch endoscopy Indications for Procedure Pre-Operative Diagnosis: Recurrent parastomal hernia with mucosal prolapse Attestation I attest that I discussed the nature of the procedure; its benefits; risks and complications; and alternatives (and the risks and benefits of such alternatives ), prior to the procedure, with the patient (or the patient's legal health and safety representative). I attest that, if there was a reasonable possibility of needing a blood transfusion, the patient (or the patient's legal health and safety representative) was given the [facility] standardized written summary, pursuant to the [place] Blood Safety Act ([place] Health and Safety Code # 1645, as amended). I attest that I re-evaluated the patient just prior to the surgery and that there has been no change in the patient's H&P, except as documented below: none DACIA MORELOS Dec 16, 2016 11:05
[2016-12-16 11:09] LABS: BASOPHILS % (AUTO) 0.9 % (0.0-2.0); EOSINOPHILS % (AUTO) 2.4 % (0.0-3.0); LYMPHOCYTES % (AUTO) 19.5 % (20.0-45.0); MEAN CORPUSCULAR HEMOGLOBIN 32.1 PG (27.0-31.0); MEAN CORPUSCULAR HGB CONC 33.8 G/DL (32.0-36.0); MEAN CORPUSCULAR VOLUME 95 FL (80-99); MONOCYTES % (AUTO) 13.4 % (1.0-10.0); NEUTROPHILS % (AUTO) 63.7 % (45.0-75.0); PLATELET COUNT 237 K/UL (150-450); RED BLOOD COUNT 4.11 M/UL (4.70-6.10); RED CELL DISTRIBUTION WIDTH 11.2 % (11.6-14.8); WHITE BLOOD COUNT 5.3 K/UL (4.8-10.8)
[2016-12-16 11:14] LABS: INR 0.9 (0.9-1.1); PROTHROMBIN TIME 9.6 SEC (9.30-11.50)
[2016-12-16] MEDS ORDERED: Heparin 2000 units/Ns 1000ml INJ PRN (11:15)
[2016-12-16] MEDS ORDERED: Lidocaine 1% Plain 30 ml INJ PRN (11:15)
[2016-12-16 11:18] LABS: ALBUMIN/GLOBULIN RATIO 1.8 (1.0-2.7); CALCIUM 9.4 mg/dL (8.6-10.2); CREATININE 1.8 mg/dL (0.7-1.2); GLOMERULAR FILTRATION RATE 38.1 mL/min (>60); POTASSIUM 4.3 mEQ/L (3.4-4.9); TOTAL PROTEIN 6.9 g/dL (6.6-8.7)
[2016-12-16] MEDS: Neomycin Sulfate 500mg Tab ORAL SCH ×3 (12:00→20:37)
[2016-12-16] MEDS: Dyna-Hex 2% Top Sol 2oz TOPIC SCH (12:00)
--- NOTE | 2016-12-16 12:23 | Brief Operative Note ---
Immediate Post Operative Note Operative Note Pre-op Diagnosis: Recurrent parastomal hernia with mucosal prolapse Procedure: King Pouch endoscopy Post-op Diagnosis: same Post-op Diagnosis: same as pre-op plus - normal pouch and valve Findings: consistent w/pre-op dx studies Surgeon: nataly Anesthesiologist: none Anesthesia: other - none Specimen: none Complications: none Condition: stable Fluids: none Estimated Blood Loss: none Drains: other - 28 meyer to Continent Ileostomy pouch Implant(s) used?: DACIA Smith Dec 16, 2016 12:22
--- NOTE | 2016-12-16 12:31 | Diagnostic Imaging Report ---
Indication: Dyspnea Comparison: 09/04/16 A single view chest radiograph was obtained. Findings: Cardiomediastinal appearance is within normal limits for age. Pulmonary vascularity is appropriate. The diaphragmatic contour is smooth and costophrenic angles are sharp. No pleural effusions are identified. The bones are unremarkable. Impression: No acute findings
--- NOTE | 2016-12-16 14:19 | Anethesia Preoperative Eval ---
Anesthesia Pre-op PMH/ROS General Date of Evaluation: Dec 16, 2016 Time of Evaluation: 13:49 Anesthesiologist: Darlene ASA Score: ASA 3 Mallampati Score Class I : Soft palate, uvula, fauces, pillars visible Class II: Soft palate, uvula, fauces visible Class III: Soft palate, base of uvula visible Class IV: Only hard plate visible Mallampati Classification: Class II Surgeon: Henry Diagnosis: Malfunctioning King Pouch Surgical Procedure: Revision King Pouch Family History: no anesthesia problems Allergies: Coded Allergies: No Known Allergies (Unverified , 07/31/16) Medications: see eMAR Past Medical History Cardiovascular: Reports: HTN Gastrointestinal/Genitourinary: Reports: other - Ulcerative Colitis Hematology/Immune: Reports: anemia, other - HEP C PSxH Narrative: 1. Malfunctioning King continent ileostomy with recurrent ventral incisional hernia and recurrent continent ileostomy parastomal hernia with stoma prolapse. 2. History of ulcerative colitis. 3. Hypertension. 4. Essential tremor. 5. Status post multiple abdominal operations. 5.1. Proctocolectomy and Susannah ileostomy in 1972. 5.2. King continent ileostomy in April 2012. 5.3. Creation of new valve and collar for King pouch in October 2012 5.4. Creation of another new valve and collar in February 2013. 5.5. Repair of King pouch slipped valve in February 2014. 5.6. Revision of King pouch and repair of incisional and parastomal hernia in October 2014 (all of these operations were performed elsewhere). 5.7. Laparotomy with resection of failed King continent ileostomy and creation of a new King continent ileostomy pouch on 05/02/2015. 5.8. Laparotomy with revision of King pouch valve, access segment and stoma and repair of recurrent incisional hernia on 03/05/2016. 5.9. Laparotomy with revision of King continent ileostomy valve prolapse on 08/01/2016. 5.10. Repair of recurrent parastomal hernia and revision of King pouch stoma on 09/05/2016. Anesthesia Pre-op Phys. Exam Physician Exam Last Vital Signs Date Time Temp Pulse Resp B/P (MAP) Pulse Ox O2 Delivery O2 Flow Rate FiO2 12/16/16 10:46 97.8 58 16 129/79 98 Room Air Constitutional: NAD Neurologic: CN 2-12 intact Cardiovascular: RRR Respiratory: CTA Gastrointestinal: S/NT/ND Airway Exam Mallampati Score: Class II MO: full ROM: limited Teeth: intact Anesthesia Pre-op A/P Labs Hematology Test 12/16/16 10:55 White Blood Count 5.3 K/UL (4.8-10.8) Red Blood Count 4.11 M/UL (4.70-6.10) L Hemoglobin 13.2 G/DL (14.2-18.0) L Hematocrit 39.0 % (42.0-52.0) L Mean Corpuscular Volume 95 FL (80-99) Mean Corpuscular Hemoglobin 32.1 PG (27.0-31.0) H Mean Corpuscular Hemoglobin Concent 33.8 G/DL (32.0-36.0) Red Cell Distribution Width 11.2 % (11.6-14.8) L Platelet Count 237 K/UL (150-450) Mean Platelet Volume 5.0 FL (6.5-10.1) L Neutrophils (%) (Auto) 63.7 % (45.0-75.0) Lymphocytes (%) (Auto) 19.5 % (20.0-45.0) L Monocytes (%) (Auto) 13.4 % (1.0-10.0) H Eosinophils (%) (Auto) 2.4 % (0.0-3.0) Basophils (%) (Auto) 0.9 % (0.0-2.0) Coagulation Test 12/16/16 10:55 Prothrombin Time 9.6 SEC (9.30-11.50) Prothromb Time International Ratio 0.9 (0.9-1.1) Activated Partial Thromboplast Time 26 SEC (23-33) Chemistry Test 12/16/16 10:55 Sodium Level 141 mEQ/L (135-145) Potassium Level 4.3 mEQ/L (3.4-4.9) Chloride Level 104 mEQ/L (98-107) Carbon Dioxide Level 22 mEQ/L (20-30) Anion Gap 15 (5-15) Blood Urea Nitrogen 32 mg/dL (7-23) H Creatinine 1.8 mg/dL (0.7-1.2) H Estimat Glomerular Filtration Rate 38.1 mL/min (>60) Glucose Level 105 mg/dL (74-106) Calcium Level 9.4 mg/dL (8.6-10.2) Total Bilirubin 0.4 mg/dL (0.0-1.2) Aspartate Amino Transf (AST/SGOT) 20 U/L (5-40) Alanine Aminotransferase (ALT/SGPT) 24 U/L (3-41) Alkaline Phosphatase 73 U/L (40-129) Total Protein 6.9 g/dL (6.6-8.7) Albumin 4.5 g/dL (3.5-5.2) Globulin 2.4 g/dL Albumin/Globulin Ratio 1.8 (1.0-2.7) Risk Assessment & Plan Assessment: ASA 3 Plan: GA Status Change Before Surgery: No Pre-Antibiotics Drug: Abbe Bell MD Dec 16, 2016 14:19
--- NOTE | 2016-12-16 15:03 | Diagnostic Imaging Report ---
Indication: manager long term care venous access Findings: After the indications, procedure, risks, complications, and alternatives of the procedure were explained, written informed consent was obtained. The left upper extremity was prepped with alcohol. All elements of maximal sterile barrier technique were followed including usage of a cap, mask, sterile gown, sterile gloves, hand hygiene and a large sterile sheet. Sonographic evaluation of the upper extremity was performed demonstrating a patent and compressible basilic vein. Access was obtained under real-time ultrasound guidance and digital image was saved and archived. An .018 wire was introduced. Needle exchanged for a 5 Colombian peel-away sheath. Measurements were obtained. A 5 Colombian dual-lumen Power PICC line catheter was cut to 50 cm and introduced over the wire. Peel-away sheath and wire were removed.Catheter was secured to the skin using 2-0 Prolene suture. Both ports aspirate and flush easily. Fluoroscopic Images show distal tip in the superior vena cava. Total fluoroscopic times O.3 minutes Impression: Successful placement of an upper extremity PICC line catheter
[2016-12-16] MEDS: D5 1/2NS w/KCl 20mEq 1,000 ML IV SCH ×3 (16:41→23:48)
--- NOTE | 2016-12-16 16:45 | Pre-op HX & Phy Repo 2 SIG ---
DATE OF ADMISSION: 12/16/2016 History Of Present Illness: [place] and is examined. Please see previously dictated history. Additional history reveals the medications he is taking including Inderal for essential tremor and for hypertension he takes amlodipine, benazepril, and primidone. PHYSICAL EXAMINATION: Vital Signs: The patient is 6 foot 5 inches, approximately 215 pounds. HEENT: Within normal limits. LUNGS: Clear. HEART: Regular rhythm. BREASTS: Without masses. ABDOMEN: Large, soft without distention. There is a long left paramedian incision. The patient is examined both supine and standing erect with various straining maneuvers. Approximately 6 cm below the top of the left paramedian scar is a recurrent incisional hernia measuring approximately 4 x 4 cm with projection of the hernia bulge to the right. The remainder of the incision down to the pubis is intact without any hernia. The stoma of his King continent ileostomy is low in the right lower quadrant. There is a recurrent parastomal hernia encompassing all of the lower portion, right lower quadrant abdominal wall. With standing after a few minutes, the stoma prolapsed to several centimeters above the skin junction. It then reduces readily when supine. Extremities: Without edema. Pulses 4+ femoral to pedal bilaterally. GENITOURINARY: Testes and scrotum within normal limits. RECTAL: Status post proctectomy. NEUROLOGIC: Physiologic. IMPRESSION: 1. 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 2. History of ulcerative colitis. 3. Hypertension. 4. Essential tremor. 5. Status post multiple abdominal operations. 5.1. Proctocolectomy and Susannah ileostomy in 1972. 5.2. Laparotomy to release adhesive small bowel obstruction in 1973. 5.3. King continent ileostomy April 2012. 5.4. Creation of new valve and collar for King pouch October 2012. 5.5. Creation of another new valve and collar February 2013. 5.6. Repair of King pouch slipped valve February 2014. 5.7. Revision of King pouch and repair of incisional and parastomal hernia October 2014 (all of these operations were performed elsewhere). 6. Laparotomy with resection of failed King continent ileostomy and creation of a new King continent ileostomy pouch 05/02/2015. 7. Laparotomy with revision of King pouch valve, access segment and stoma and repair of recurrent incisional hernia 03/05/2016. 8. Laparotomy with revision of King continent ileostomy valve prolapse 08/01/2016. 9. Repair of recurrent parastomal hernia and revision of King pouch stoma 09/05/2016. Discussion: The patient will undergo pouch endoscopy, but since he is having no difficulty with intubation and no incontinence, the pouch and valve will likely be normal. He will require laparotomy to take down the existing stoma and relocated higher on the right side of the abdomen at the proximal level of the umbilicus, which is no longer present. The patient understands that relocation to the left lower quadrant would likely mean placing it lateral to the rectus muscle with a much higher incidence of herniation. I had further discussion with the patient that the recurrent hernia in the right lower quadrant will be repaired with mesh as needed and likely that will be the case with the recurrent small incisional hernia. I had a full discussion with the patient regarding the nature of the surgery, indications, alternatives, options, and risks including bleeding, infection, injury to adjacent structures or organs, recurrent difficulties with recurrent hernia despite use of mesh, recurrent difficulties with the function or structure of the King continent ileostomy, which could require additional procedures. All questions have been answered. We will continue discussion after the pouch endoscopy and any additional questions will be answered. The patient will undergo insertion of a dual lumen PICC line, intravenous hydration during his bowel prep, continuous decompression of his pouch with an indwelling catheter to gravity drainage and preoperative intravenous antibiotics starting tonight and preoperative subcutaneous heparin. Regan Marc M.D. DR: AURY JOB#: [id number] CC: DANNY
[2016-12-16] MEDS ORDERED: PRIMIDONE50 MG PO (17:49)
[2016-12-16] MEDS ORDERED: D5 1/2NS w/KCl 20mEq 1,000 ML IV SCH (18:00)
[2016-12-16 18:41] LABS: APPEARANCE,URINE CLEAR; KETONES,URINE NEGATIVE (NEGATIVE); LEUKOCYTE ESTERASE ,URINE 1+ (NEGATIVE); NITRITE,URINE NEGATIVE (NEGATIVE); PH,URINE 5 (4.5-8.0); PROTEIN,URINE 2+ (NEGATIVE); UROBILINOGEN,URINE NORMAL MG/DL (0.0-1.0)
[2016-12-16 18:48] LABS: BACTERIA,URINE OCCASIONAL /HPF; RBC,URINE 0-2 /HPF (0 - 0)
--- NOTE | 2016-12-16 19:30 | Procedure Note ---
DATE OF PROCEDURE: 12/16/2016 ENDOSCOPIST: Regan Marc M.D. ANESTHESIA: None. SEDATION: None. TYPE OF ENDOSCOPY: King continent ileostomy pouch endoscopy. PRE-ENDOSCOPY DIAGNOSES: 1. Recurrent continent ileostomy parastomal hernia with stoma mucosal prolapse. 2. History of ulcerative colitis. 3. Status post proctocolectomy and continent ileostomy with multiple revisions. POST-ENDOSCOPY DIAGNOSES: 1. Recurrent continent ileostomy parastomal hernia with stoma mucosal prolapse. 2. History of ulcerative colitis. 3. Status post proctocolectomy and continent ileostomy with multiple revisions. ENDOSCOPY PERFORMED: King continent ileostomy pouch endoscopy. Description of Procedure: The patient was positioned supine in the GI lab without any anesthesia or sedation given or required. Using a GIF-P140 endoscope, the stoma in the right lower quadrant was entered with some manual pressure over the herniation just cephalad. The distance to the tip of the nipple valve was approximately 7 cm. The pouch is distensible and looks completely normal without any inflammation. Retroflexed views revealed a well-formed nipple valve, but there is a fishmouth deformity. However, the patient is not having any incontinence or any difficulty intubating. Withdrawal views confirmed the above findings. Following the procedure, I was able to readily insert a 28-English Mohr catheter into the pouch to decompress it. Secured it to the skin with tape and connected to a drainage bag. The patient tolerated the endoscopy well. He will be prepared for surgery in the morning. Regan Marc M.D. DR: CRISTA JOB#: [id number] CC:
[2016-12-16 20:00] VITALS: BP 150/82
[2016-12-16] MEDS: Ampicillin/Sulbactam Sod 3 GM in NS 110 ML IV SCH (23:48)
[2016-12-17] VITALS (16 sets, daily range): BP systolic 129–156; BP diastolic 68–85
[2016-12-17 04:42] LABS: BASOPHILS % (AUTO) 0.7 % (0.0-2.0); EOSINOPHILS % (AUTO) 3.1 % (0.0-3.0); LYMPHOCYTES % (AUTO) 21.8 % (20.0-45.0); MEAN CORPUSCULAR HEMOGLOBIN 32.7 PG (27.0-31.0); MEAN CORPUSCULAR VOLUME 93 FL (80-99); MEAN PLATELET VOLUME 5.1 FL (6.5-10.1); MONOCYTES % (AUTO) 14.2 % (1.0-10.0); NEUTROPHILS % (AUTO) 60.2 % (45.0-75.0); PLATELET COUNT 175 K/UL (150-450); RED BLOOD COUNT 3.59 M/UL (4.70-6.10); RED CELL DISTRIBUTION WIDTH 10.9 % (11.6-14.8); WHITE BLOOD COUNT 3.8 K/UL (4.8-10.8)
[2016-12-17 05:28] LABS: ALBUMIN/GLOBULIN RATIO 1.8 (1.0-2.7); CALCIUM 8.6 mg/dL (8.6-10.2); CREATININE 1.6 mg/dL (0.7-1.2); GLOMERULAR FILTRATION RATE 43.6 mL/min (>60); TOTAL PROTEIN 5.9 g/dL (6.6-8.7)
[2016-12-17] MEDS ORDERED: Heparin 5000 units/ml inj SUBQ ONE (05:30)
[2016-12-17] MEDS: Ampicillin/Sulbactam Sod 3 GM in NS 110 ML IV SCH ×3 (05:30→17:29)
[2016-12-17] MEDS ORDERED: Bacitracin 50000 Units Vial ONE (06:49)
[2016-12-17] MEDS ORDERED: NeoSporin Gu Irrig 1ml Amp IRRIG ONE (06:49)
--- NOTE | 2016-12-17 07:11 | Pre-Procedure Note/Attestation ---
Pre-Procedure Note/Attestation Complete Prior to Procedure Planned Procedure: not applicable Procedure Narrative: laparotomy with relocation of King continent ileostomy stoma with repair of recurrent parastomal and incisional hernia Indications for Procedure Pre-Operative Diagnosis: Recurrent parastomal hernia with mucosal prolapse and recurrent incisional hernia Attestation I attest that I discussed the nature of the procedure; its benefits; risks and complications; and alternatives (and the risks and benefits of such alternatives ), prior to the procedure, with the patient (or the patient's legal human resources representative). I attest that, if there was a reasonable possibility of needing a blood transfusion, the patient (or the patient's legal human resources representative) was given the [place] Department [employer] standardized written summary, pursuant to the Lucien Allan Blood Safety Act ([place] Health and Safety Code # 1645, as amended). I attest that I re-evaluated the patient just prior to the surgery and that there has been no change in the patient's H&P, except as documented below: DACIA Casas Dec 17, 2016 07:11
[2016-12-17] MEDS ORDERED: Propofol 200mg/20ml IV ONE (07:30)
[2016-12-17] MEDS ORDERED: LR 1000ml ONE (07:30)
[2016-12-17] MEDS ORDERED: ePHEDrine 50mg/ml Inj ONE (07:30)
[2016-12-17] MEDS ORDERED: Lidocaine 1% MPF 10mg/ml 5ml ONE (07:30)
[2016-12-17] MEDS ORDERED: Metoclopramide 10mg/2ml Inj ONE (07:30)
[2016-12-17] MEDS ORDERED: Succinylcholine 20mg/ml 10ml vial ONE (07:30)
[2016-12-17] MEDS ORDERED: Glycopyrrolate 0.2mg/ml 1ml Vial ONE (07:30)
[2016-12-17] MEDS ORDERED: Midazolam 2mg/2ml Inj ONE (07:30)
[2016-12-17] MEDS ORDERED: Morphine Sulfate 10mg/ml Inj ONE (07:30)
[2016-12-17] MEDS ORDERED: Sodium Chloride 10ml vial INJ ONE (07:30)
[2016-12-17] MEDS ORDERED: Zemuron 50mg/5ml Inj IV ONE ×2 (07:30→10:36)
[2016-12-17] MEDS ORDERED: Sterile Water Irrig 1000ml IRRIG ONE (07:30)
[2016-12-17] MEDS ORDERED: NS Irrig 1000ml ONE (07:30)
[2016-12-17] MEDS ORDERED: Neostigmine 1mg/ml 10ml Inj ONE (07:30)
[2016-12-17] MEDS: D5 1/2NS w/KCl 20mEq 1,000 ML IV SCH (08:00)
--- NOTE | 2016-12-17 08:37 | Anethesia Preoperative Eval ---
Anesthesia Pre-op PMH/ROS General Date of Evaluation: Dec 17, 2016 Time of Evaluation: 08:36 Anesthesiologist: amanda ASA Score: ASA 3 Mallampati Score Class I : Soft palate, uvula, fauces, pillars visible Class II: Soft palate, uvula, fauces visible Class III: Soft palate, base of uvula visible Class IV: Only hard plate visible Mallampati Classification: Class II Surgeon: nataly Diagnosis: malfunction feldman pouch Surgical Procedure: revision marcela pouch Anesthesia History: none Family History: no anesthesia problems Allergies: Coded Allergies: No Known Allergies (Unverified , 07/31/16) Medications: see eMAR Past Medical History Cardiovascular: Reports: HTN Pulmonary: Denies: asthma, COPD, IDA, other Gastrointestinal/Genitourinary: Reports: other - ulceratic collitis Neurologic/Psychiatric: Denies: dementia, CVA, depression/anxiety, TIA, other Endocrine: Denies: DM, hypothyroidism, steroids, other HEENT: Denies: cataract (L), cataract (R), glaucoma, MORONGO (L), MORONGO (R), other Hematology/Immune: Reports: anemia Musculoskeletal/Integumentary: Denies: OA, RA, DJD, DDD, edema, other Other: other - Hep c PSxH Narrative: 1. Malfunctioning King continent ileostomy with recurrent ventral incisional hernia and recurrent continent ileostomy parastomal hernia with stoma prolapse. 2. History of ulcerative colitis. 3. Hypertension. 4. Essential tremor. 5. Status post multiple abdominal operations. 5.1. Proctocolectomy and Susannah ileostomy in 1972. 5.2. King continent ileostomy in April 2012. 5.3. Creation of new valve and collar for King pouch in October 2012 5.4. Creation of another new valve and collar in February 2013. 5.5. Repair of King pouch slipped valve in February 2014. 5.6. Revision of King pouch and repair of incisional and parastomal hernia in October 2014 (all of these operations were performed elsewhere). 5.7. Laparotomy with resection of failed King continent ileostomy and creation of a new King continent ileostomy pouch on 05/02/2015. 5.8. Laparotomy with revision of King pouch valve, access segment and stoma and repair of recurrent incisional hernia on 03/05/2016. 5.9. Laparotomy with revision of King continent ileostomy valve prolapse on 08/01/2016. 5.10. Repair of recurrent parastomal hernia and revision of King pouch stoma on 09/05/2016. Anesthesia Pre-op Phys. Exam Physician Exam Last Vital Signs Date Time Temp Pulse Resp B/P (MAP) Pulse Ox O2 Delivery O2 Flow Rate FiO2 12/17/16 04:00 97.6 52 18 136/74 97 Room Air Constitutional: NAD Neurologic: CN 2-12 intact Cardiovascular: RRR Respiratory: CTA Airway Exam Mallampati Classification 3 Mallampati Score: Class II MO: full Neck: thick TMD: 2fb ROM: full Dentures: no upper, no lower Anesthesia Pre-op A/P Labs Hematology Test 12/16/16 10:55 12/17/16 04:00 White Blood Count 5.3 K/UL (4.8-10.8) 3.8 K/UL (4.8-10.8) L Red Blood Count 4.11 M/UL (4.70-6.10) L 3.59 M/UL (4.70-6.10) L Hemoglobin 13.2 G/DL (14.2-18.0) L 11.7 G/DL (14.2-18.0) L Hematocrit 39.0 % (42.0-52.0) L 33.5 % (42.0-52.0) L Mean Corpuscular Volume 95 FL (80-99) 93 FL (80-99) Mean Corpuscular Hemoglobin 32.1 PG (27.0-31.0) H 32.7 PG (27.0-31.0) H Mean Corpuscular Hemoglobin Concent 33.8 G/DL (32.0-36.0) 35.0 G/DL (32.0-36.0) Red Cell Distribution Width 11.2 % (11.6-14.8) L 10.9 % (11.6-14.8) L Platelet Count 237 K/UL (150-450) 175 K/UL (150-450) Mean Platelet Volume 5.0 FL (6.5-10.1) L 5.1 FL (6.5-10.1) L Neutrophils (%) (Auto) 63.7 % (45.0-75.0) 60.2 % (45.0-75.0) Lymphocytes (%) (Auto) 19.5 % (20.0-45.0) L 21.8 % (20.0-45.0) Monocytes (%) (Auto) 13.4 % (1.0-10.0) H 14.2 % (1.0-10.0) H Eosinophils (%) (Auto) 2.4 % (0.0-3.0) 3.1 % (0.0-3.0) H Basophils (%) (Auto) 0.9 % (0.0-2.0) 0.7 % (0.0-2.0) Coagulation Test 12/16/16 10:55 Prothrombin Time 9.6 SEC (9.30-11.50) Prothromb Time International Ratio 0.9 (0.9-1.1) Activated Partial Thromboplast Time 26 SEC (23-33) Chemistry Test 12/16/16 10:55 12/17/16 04:00 Sodium Level 141 mEQ/L (135-145) 139 mEQ/L (135-145) Potassium Level 4.3 mEQ/L (3.4-4.9) 4.0 mEQ/L (3.4-4.9) Chloride Level 104 mEQ/L (98-107) 103 mEQ/L (98-107) Carbon Dioxide Level 22 mEQ/L (20-30) 23 mEQ/L (20-30) Anion Gap 15 (5-15) 13 (5-15) Blood Urea Nitrogen 32 mg/dL (7-23) H 24 mg/dL (7-23) H Creatinine 1.8 mg/dL (0.7-1.2) H 1.6 mg/dL (0.7-1.2) H Estimat Glomerular Filtration Rate 38.1 mL/min (>60) 43.6 mL/min (>60) Glucose Level 105 mg/dL (74-106) 96 mg/dL (74-106) Calcium Level 9.4 mg/dL (8.6-10.2) 8.6 mg/dL (8.6-10.2) Total Bilirubin 0.4 mg/dL (0.0-1.2) 0.4 mg/dL (0.0-1.2) Aspartate Amino Transf (AST/SGOT) 20 U/L (5-40) 17 U/L (5-40) Alanine Aminotransferase (ALT/SGPT) 24 U/L (3-41) 21 U/L (3-41) Alkaline Phosphatase 73 U/L (40-129) 49 U/L (40-129) Total Protein 6.9 g/dL (6.6-8.7) 5.9 g/dL (6.6-8.7) L Albumin 4.5 g/dL (3.5-5.2) 3.8 g/dL (3.5-5.2) Globulin 2.4 g/dL 2.1 g/dL Albumin/Globulin Ratio 1.8 (1.0-2.7) 1.8 (1.0-2.7) Studies Pre-op Studies: EKG - sr Risk Assessment & Plan Plan: general Status Change Before Surgery: No Pre-Antibiotics Drug: flaygl Given Within 1 Hr of Incision: Yes Time Given: 05:30 EVAN FENTON CRNA Dec 17, 2016 08:37
[2016-12-17] MEDS: Propranolol ER 60mg cap ORAL SCH ×2 (09:00→13:53)
[2016-12-17] MEDS: Benazepril 10mg tab ORAL SCH ×2 (09:00→13:53)
[2016-12-17] MEDS: Dyna-Hex 2% Top Sol 2oz TOPIC SCH ×2 (09:00→21:00)
[2016-12-17] MEDS ORDERED: LORazepam 1mg tab SL PRN ×2 (11:30)
[2016-12-17] MEDS ORDERED: Acetaminophen 650mg/20.3ml ORAL PRN (11:30)
--- NOTE | 2016-12-17 11:41 | Brief Operative Note ---
Immediate Post Operative Note Operative Note Pre-op Diagnosis: Recurrent parastomal hernia with mucosal prolapse and recurrent incisional hernia Procedure: laparotomy with relocation of King pouch stoma to LLQ, repair of RLQ recurrent parastomal hernia, repair of recurrent incision hernia with DualMesh Post-op Diagnosis: same Post-op Diagnosis: same as pre-op Findings: consistent w/pre-op dx studies Surgeon: nataly Truck Unloader: hemal Anesthesiologist: amanda Anesthesia: general Specimen: yes - King pouch stoma Complications: none Condition: stable Fluids: see anesthesia record Estimated Blood Loss: volume - 100ml Drains: CELINA Implant(s) used?: Yes - DACIA Garner Dec 17, 2016 11:41
--- NOTE | 2016-12-17 11:48 | Immediate Post-Op Evaluation ---
Immediate Post-Op Evalulation Immediate Post-Op Evalulation Procedure: revision laparatomy Date of Evaluation: Dec 17, 2016 Time of Evaluation: 11:47 IV Fluids: 1800 Blood Products: 0 Estimated Blood Loss: 100 Urinary Output: 200 Blood Pressure Systolic: 135 Blood Pressure Diastolic: 80 Pulse Rate: 58 Respiratory Rate: 14 O2 Sat by Pulse Oximetry: 100 Temperature (Fahrenheit): 97.5 Pain Score (1-10): 0 Nausea: No Vomiting: No Complications none Patient Status: awake, reacts, patent Hydration Status: adequate Drug: unasyn Given Within 1 Hr of Incision: Yes EVAN FENTON CRNA Dec 17, 2016 11:48
[2016-12-17] MEDS ORDERED: Rate Change PCA 1 Each MISC PRN (12:00)
[2016-12-17] MEDS ORDERED: Meperidine 25mg/0.5ml Inj (FOR RIGORS ONLY) IV PRN (12:00)
[2016-12-17] MEDS ORDERED: Hydromorphone 0.5mg/0.5ml inj IVP PRN (12:00)
[2016-12-17] MEDS ORDERED: DiphenhydrAMINE 50mg/ml Inj IVP PRN ×2 (12:00)
[2016-12-17] MEDS ORDERED: fentaNYL 100 mcg/2 mL IV PRN (12:00)
[2016-12-17] MEDS ORDERED: Naloxone 0.4mg/ml Inj IVP PRN (12:00)
[2016-12-17] MEDS ORDERED: PCA HYDROmorphone 1mg/ml 30 ML IV PRN (12:00)
[2016-12-17] MEDS ORDERED: PCA Education Pamphlet MISC ONE (14:00)
[2016-12-17] MEDS: D5 1/4NS w/KCl 20mEq 1,000 ML IV SCH ×2 (14:19→21:37)
[2016-12-17] MEDS ORDERED: NS 275ml ONE (18:38)
[2016-12-17] MEDS ORDERED: Tubing IV Secondary IV ONE (18:38)
[2016-12-17] MEDS: PCA shift volume MISC SCH (19:00)
--- NOTE | 2016-12-17 21:30 | Operative Note - Dictated ---
DATE OF OPERATION: 12/17/2016 SURGEON: Regan Marc M.D. MEDIA SUPERVISOR SURGEON: Tez Marcelo M.D. ANESTHESIOLOGIST: Andreina Yang CRNA TYPE OF ANESTHESIA: General endotracheal. PREOPERATIVE DIAGNOSES: 1. Malfunctioning King continent ileostomy with recurrent parastomal hernia and mucosal prolapse and recurrent ventral incisional hernia. 2. History of ulcerative colitis. 3. Status post multiple abdominal operations. 1. Proctocolectomy and Susannah ileostomy in 1972. 2. Laparotomy to release small bowel obstruction due to adhesions in 1973 3. King continent ileostomy in April 2012. 4. Creation of new valve and collar for King pouch in October 2012 5. Creation of another new valve and collar in February 2013. 6. Repair of King pouch slipped valve in February 2014. 7. Revision of King pouch and repair of incisional and parastomal hernia October 2014 (all of these operations were performed elsewhere). 8. Laparotomy with resection of failed King continent ileostomy and creation of a new King continent ileostomy pouch on 05/02/2015. 9. Laparotomy with revision of King pouch valve, access segment and stoma, and repair of recurrent incisional hernia on 03/05/2016. 10. Laparotomy with revision of King continent ileostomy valve prolapse 02/2017 11. Repair of recurrent parastomal hernia and revision of King pouch stoma 09/05/2016 POSTOPERATIVE DIAGNOSES: 1. Malfunctioning King continent ileostomy with recurrent parastomal hernia and mucosal prolapse and recurrent ventral incisional hernia. 2. History of ulcerative colitis 3. Status post multiple abdominal operations. 1. Proctocolectomy and Susannah ileostomy in 1972. 2. Laparotomy to release small bowel obstruction due to adhesions in 1973 3. King continent ileostomy in April 2012. 4. Creation of new valve and collar for King pouch in October 2012 5. Creation of another new valve and collar in February 2013. 6. Repair of King pouch slipped valve in February 2014. 7. Revision of King pouch and repair of incisional and parastomal hernia October 2014 (all of these operations were performed elsewhere). 8. Laparotomy with resection of failed King continent ileostomy and creation of a new King continent ileostomy pouch on 05/02/2015. 9. Laparotomy with revision of King pouch valve, access segment and stoma, and repair of recurrent incisional hernia on 03/05/2016. 10. Laparotomy with revision of King continent ileostomy valve prolapse 02/2017 11. Repair of recurrent parastomal hernia and revision of King pouch stoma 09/05/2016 OPERATION PERFORMED: 1. Laparotomy with relocation of King continent ileostomy stoma to the left lower quadrant and repair of right lower quadrant recurrent parastomal hernia 2. Repair of recurrent incisional hernia with DualMesh. Description Of Procedure: The patient was taken to the operating room and under general endotracheal anesthesia with sequential compression device stockings and Mohr catheter in place and having received intravenous antibiotics and preoperative subcutaneous heparin, the patient was prepped and draped in the usual fashion. Initially, the stoma in the right lower quadrant was covered with a Tegaderm. The patient had a long left paramedian incisions starting high in the epigastrium and extending to the pubis, but in the lower part of the incision, it was more in the midline than paramedian. There were mild adhesions throughout the abdomen and into the pelvis, but no dense adhesions. The incision was opened throughout its length, mobilizing the small bowel loops. There was one very dilated loop of small bowel that was mobilized and traced retrograde and proximal and there were no points of obstruction. The pouch was elevated out of the pelvis and the stoma in the right lower quadrant was taken down with a transversely oriented long elliptical incision. Now, the 28-Zambian Mohr catheter was placed through the stoma into the pouch without any difficulty and the afferent bowel manually occluded. The pouch was distended with 600 mL of saline. The catheter was removed and there was no evidence of any incontinence. The catheter was reintroduced and the pouch decompressed. There was a significant hernia in the right lower quadrant, but with the stoma taken down, the musculature and fascia could be closed in oblique fashion without any tension and therefore not requiring any mesh. This was accomplished with continuous #1 Prolene starting at both ends and inverting the knots. A Betadine soaked Ray-Taz was placed in the subcutaneous tissues. The midline fascia had the recurrent hernia in the upper third that was present on examination, but what was not evident on examination was the marked attenuation of the fascia in the area of the entire incision from all of these multiple operations, and it was clear that a primary repair and primary closure of this incision would not be possible without mesh. I initially had felt that I would have to relocate the King pouch stoma higher in the right lower quadrant, but since the left paramedian incision became a midline in the lower abdomen, there was sufficient area to bring a new stoma out and keep it within the rectus muscle and away from the incision. At the appropriate location in the left lower quadrant, a 2.5cm long narrow ellipse of skin was excised in transverse orientation and a cruciate incision made in the fascia. A two fingerbreadth abdominal wall hiatus was created. Some bleeding along the rectus was controlled with [id number] 2-0 chromic suture ligatures. The pouch was sutured to the peritoneum with multiple interrupted 3-0 Vicryl sutures and then the access segment and stoma brought through the abdominal wall up to the skin. Slight redundancy of the access segment was excised and the new stoma primarily matured with continuous 2-0 chromic locking sutures starting at the 3 and 9 o'clock positions creating a very satisfactory stoma. The 28-Zambian Mohr readily went through the stoma and into the pouch to the apex of the pouch. It was marked with a 3-0 silk at the level of the stoma and then the catheter was sutured to the skin with two sutures of 2-0 silk. The catheter was flushed and connected to gravity drainage bag. Since there were no enterotomies or anastomoses, I did not feel that catheter gastrostomy was required and likely would have increased the potential for infection of the mesh. Throughout the procedure, antibiotic soaked laps protected the abdominal wall and there was frequent irrigation with antibiotic solution. The flaps were dissected sufficiently medial and lateral along the incision to get to healthy strong abdominal wall musculature. Then, a piece of DualMesh was soaked in antibiotic solution and tapered to fit, measuring approximately 8 centimeters wide and 20 centimeters long. It extended from the superior pole of the incision in the epigastrium down to the pubis. It was sutured with #1 Prolene continuous horizontal mattress sutures achieving good underlay circumferentially under the fascia. Following completion of the mesh reconstruction of the abdominal wall, I placed a large flat Robson-Bledsoe drain over the mesh, brought it through a subcutaneous tunnel to the right lower quadrant incision and then exiting inferior to that through a stab wound. The catheter was sutured to the skin with a 2-0 nylon suture. Now, the right lower quadrant incision was first closed with interrupted 3-0 Vicryl subcutaneous sutures to close the space and then the skin was closed with a combination of aydee and interrupted 2-0 nylon vertical mattress sutures. The subcutaneous tissues of the primary vertical incision was brought together with multiple interrupted 2-0 Vicryl sutures and the skin closed with aydee. Final sponge and needle counts were correct. Dry sterile dressings were applied. The patient tolerated the procedure well and left the operating room in stable condition. Regan Marc M.D. DR: TONEY JOB#: [id number] CC: DANNY
[2016-12-18] VITALS: BP 146/66
[2016-12-18 04:00] VITALS: BP 141/77
[2016-12-18] MEDS: D5 1/4NS w/KCl 20mEq 1,000 ML IV SCH ×4 (04:20→23:20)
[2016-12-18 05:56] LABS: BASOPHILS % (AUTO) 0.4 % (0.0-2.0); EOSINOPHILS % (AUTO) 1.5 % (0.0-3.0); LYMPHOCYTES % (AUTO) 5.6 % (20.0-45.0); MEAN CORPUSCULAR HEMOGLOBIN 32.7 PG (27.0-31.0); MEAN CORPUSCULAR HGB CONC 34.5 G/DL (32.0-36.0); MEAN CORPUSCULAR VOLUME 95 FL (80-99); MONOCYTES % (AUTO) 11.4 % (1.0-10.0); NEUTROPHILS % (AUTO) 81.1 % (45.0-75.0); PLATELET COUNT 179 K/UL (150-450); RED BLOOD COUNT 3.72 M/UL (4.70-6.10); WHITE BLOOD COUNT 7.8 K/UL (4.8-10.8)
[2016-12-18 06:03] LABS: CALCIUM 7.8 mg/dL (8.6-10.2); CREATININE 1.4 mg/dL (0.7-1.2); GLOMERULAR FILTRATION RATE 50.9 mL/min (>60); POTASSIUM 4.2 mEQ/L (3.4-4.9)
[2016-12-18] MEDS: Ampicillin/Sulbactam Sod 3 GM in NS 110 ML IV SCH ×5 (06:09→17:55)
[2016-12-18] MEDS: PCA shift volume MISC SCH ×2 (07:00→19:06)
--- NOTE | 2016-12-18 07:31 | 48 Hour Post Anesthesia Eval ---
Post Anesthesia Evaluation Procedure: revision laparatomy Date of Evaluation: Dec 18, 2016 Time of Evaluation: 07:30 Blood Pressure Systolic: 145 0: 65 Pulse Rate: 60 Respiratory Rate: 14 O2 Sat by Pulse Oximetry: 100 Airway: patent Nausea: No Vomiting: No Pain Intensity: 4 Hydration Status: adequate Cardiopulmonary Status: stable Mental Status/LOC: patient returned to baseline Follow-up Care/Observations: per surgery Post-Anesthesia Complications: none Follow-up care needed: N/A EVAN FENTON CRNA Dec 18, 2016 07:31
[2016-12-18 08:29] VITALS: BP 142/80
--- NOTE | 2016-12-18 08:29 | General Progress Note ---
Progress Note Progress Note AVSS Comfortable with dilaudid AIRBORNE OPERATIONS. Fair IS effort - chest clear Cor - reg rhythm Abdomen mildly distended, soft, incisions clean, stoma pink Urine 1975 BCIR pouc ileo 15 enteric CELINA drain 95cc WBC 7800 Hgb 12.2 (stable) BUN down 16 Cr down 1.4 Imp. Ileus Atelectasis Improving renal function with hydration Plan: NPO ambulate while wearing binder alwars f/u labs DACIA MORELOS Dec 18, 2016 08:29
[2016-12-18] MEDS: Propranolol ER 60mg cap ORAL SCH (08:56)
[2016-12-18] MEDS: Benazepril 10mg tab ORAL SCH (08:56)
[2016-12-18] MEDS: Dyna-Hex 2% Top Sol 2oz TOPIC SCH (08:58)
[2016-12-18] MEDS ORDERED: Rate Change PCA 1 Each MISC PRN (09:00)
[2016-12-18] MEDS ORDERED: PCA HYDROmorphone 1mg/ml 30 ML IV PRN (09:00)
[2016-12-18] MEDS ORDERED: Naloxone 0.4mg/ml Inj IVP PRN (09:00)
[2016-12-18] MEDS ORDERED: DiphenhydrAMINE 50mg/ml Inj IVP PRN (09:00)
[2016-12-18 11:28] VITALS: BP 138/79
[2016-12-18 15:59] VITALS: BP 146/81
[2016-12-18 20:00] VITALS: BP 132/78
[2016-12-19] VITALS: BP 145/77
[2016-12-19] MEDS: Ampicillin/Sulbactam Sod 3 GM in NS 110 ML IV SCH ×4 (00:03→18:29)
[2016-12-19] MEDS: D5 1/4NS w/KCl 20mEq 1,000 ML IV SCH ×3 (00:33→18:29)
[2016-12-19 04:00] VITALS: BP 154/82
[2016-12-19 05:29] LABS: BASOPHILS % (AUTO) 0.4 % (0.0-2.0); EOSINOPHILS % (AUTO) 1.8 % (0.0-3.0); MEAN CORPUSCULAR HEMOGLOBIN 32.7 PG (27.0-31.0); MEAN CORPUSCULAR HGB CONC 34.3 G/DL (32.0-36.0); MEAN CORPUSCULAR VOLUME 95 FL (80-99); MONOCYTES % (AUTO) 11.9 % (1.0-10.0); NEUTROPHILS % (AUTO) 78.9 % (45.0-75.0); PLATELET COUNT 177 K/UL (150-450); WHITE BLOOD COUNT 8.4 K/UL (4.8-10.8)
[2016-12-19 07:15] LABS: CREATININE 1.4 mg/dL (0.7-1.2); GLOMERULAR FILTRATION RATE 50.9 mL/min (>60); POTASSIUM 3.7 mEQ/L (3.4-4.9)
[2016-12-19] MEDS: PCA shift volume MISC SCH ×2 (07:19→19:00)
[2016-12-19 08:00] VITALS: BP 151/61
[2016-12-19] MEDS: Propranolol ER 60mg cap ORAL SCH (08:37)
[2016-12-19] MEDS: Benazepril 10mg tab ORAL SCH (08:37)
[2016-12-19] MEDS: Dyna-Hex 2% Top Sol 2oz TOPIC SCH (08:38)
--- NOTE | 2016-12-19 09:51 | General Progress Note ---
Progress Note Progress Note AVSS c/o nausea and abdominal bloating. Ambulates in hallways wearing binder Abdomen distended and tympanitic, incisions clean, stoma pink Urine 3500 BCIR ileo 10cc CELINA 30cc serosang WBC 8400 Hgb 11.8 BUN 10 Cr 1.4 Imp. Ileus Plan: D/C basal infusion of dilaudid [employer] Continue NPO DACIA MORELOS Dec 19, 2016 09:50
[2016-12-19 12:00] VITALS: BP 150/85
[2016-12-19] MEDS ORDERED: Metoclopramide 10mg/2ml Inj IVP STA (12:48)
[2016-12-19] MEDS ORDERED: DiphenhydrAMINE 50mg/ml Inj IVP PRN (13:00)
[2016-12-19] MEDS ORDERED: PCA HYDROmorphone 1mg/ml 30 ML IV PRN (13:00)
[2016-12-19] MEDS ORDERED: Rate Change PCA 1 Each MISC PRN (13:00)
[2016-12-19] MEDS ORDERED: Naloxone 0.4mg/ml Inj IVP PRN (13:00)
--- NOTE | 2016-12-19 15:43 | Cardiology Report ---
APPROVED REPORT EKG Measurement Heart [id number] Sinus bradycardia with 1st degree AV block Nonspecific ST and T wave abnormality Abnormal ECG
[2016-12-19 16:00] VITALS: BP 155/97
[2016-12-19] MEDS ORDERED: Metoclopramide 10mg/2ml Inj IVP PRN (18:00)
[2016-12-19 20:00] VITALS: BP 152/84
[2016-12-20] VITALS: BP 149/84
[2016-12-20] MEDS: D5 1/4NS w/KCl 20mEq 1,000 ML IV SCH ×5 (02:00→23:00)
[2016-12-20] MEDS: Ampicillin/Sulbactam Sod 3 GM in NS 110 ML IV SCH ×5 (06:00→17:53)
[2016-12-20 06:59] VITALS: BP 136/82
[2016-12-20] MEDS: PCA shift volume MISC SCH ×2 (07:14→19:07)
[2016-12-20 08:00] VITALS: BP 154/81
[2016-12-20 08:21] LABS: BASOPHILS % (AUTO) 0.3 % (0.0-2.0); EOSINOPHILS % (AUTO) 0.6 % (0.0-3.0); LYMPHOCYTES % (AUTO) 6.1 % (20.0-45.0); MEAN CORPUSCULAR HEMOGLOBIN 33.1 PG (27.0-31.0); MEAN CORPUSCULAR HGB CONC 34.7 G/DL (32.0-36.0); MEAN CORPUSCULAR VOLUME 96 FL (80-99); MEAN PLATELET VOLUME 5.2 FL (6.5-10.1); MONOCYTES % (AUTO) 9.6 % (1.0-10.0); NEUTROPHILS % (AUTO) 83.3 % (45.0-75.0); PLATELET COUNT 205 K/UL (150-450); RED BLOOD COUNT 3.64 M/UL (4.70-6.10); WHITE BLOOD COUNT 12.5 K/UL (4.8-10.8)
--- NOTE | 2016-12-20 08:22 | General Progress Note ---
Progress Note Progress Note AVSS Feeling much better with large volume of continent ileostomy effluent overnight and nausea resolved Abdomen distention improved but still tympanitic Incisions clean, stoma pink Urine 1500 BCIR ileo 2920 CELINA drain 40 serosang Labs - pending Imp. Resolving ileus but mild persistent distention Plan: Continue NPO today Increase ambulation to TID Await labs DACIA MORELOS Dec 20, 2016 08:22
[2016-12-20 08:31] LABS: CALCIUM 7.9 mg/dL (8.6-10.2); CREATININE 1.4 mg/dL (0.7-1.2); GLOMERULAR FILTRATION RATE 50.9 mL/min (>60); POTASSIUM 3.7 mEQ/L (3.4-4.9)
[2016-12-20] MEDS ORDERED: PCA HYDROmorphone 1mg/ml 30 ML IV PRN (09:00)
[2016-12-20] MEDS: Propranolol ER 60mg cap ORAL SCH (09:31)
[2016-12-20] MEDS: Dyna-Hex 2% Top Sol 2oz TOPIC SCH (09:32)
[2016-12-20] MEDS: Benazepril 10mg tab ORAL SCH (09:32)
[2016-12-20 12:00] VITALS: BP 150/85
[2016-12-20 16:00] VITALS: BP 154/85
[2016-12-20 20:00] VITALS: BP 146/82
[2016-12-21] VITALS: BP 139/79
[2016-12-21 04:00] VITALS: BP 139/77
[2016-12-21] MEDS: D5 1/4NS w/KCl 20mEq 1,000 ML IV SCH ×4 (04:40→18:42)
[2016-12-21] MEDS: Ampicillin/Sulbactam Sod 3 GM in NS 110 ML IV SCH ×5 (06:25→18:42)
[2016-12-21] MEDS: PCA shift volume MISC SCH ×2 (07:08→19:12)
[2016-12-21 08:00] VITALS: BP 141/80
[2016-12-21] MEDS: Propranolol ER 60mg cap ORAL SCH (08:17)
[2016-12-21] MEDS: Dyna-Hex 2% Top Sol 2oz TOPIC SCH (08:17)
[2016-12-21] MEDS: Benazepril 10mg tab ORAL SCH (08:19)
[2016-12-21 08:26] LABS: BASOPHILS % (AUTO) 0.4 % (0.0-2.0); EOSINOPHILS % (AUTO) 2.8 % (0.0-3.0); LYMPHOCYTES % (AUTO) 10.8 % (20.0-45.0); MEAN CORPUSCULAR HEMOGLOBIN 32.2 PG (27.0-31.0); MEAN CORPUSCULAR HGB CONC 33.6 G/DL (32.0-36.0); MEAN CORPUSCULAR VOLUME 96 FL (80-99); MEAN PLATELET VOLUME 5.3 FL (6.5-10.1); MONOCYTES % (AUTO) 10.9 % (1.0-10.0); NEUTROPHILS % (AUTO) 75.2 % (45.0-75.0); PLATELET COUNT 211 K/UL (150-450); RED BLOOD COUNT 3.49 M/UL (4.70-6.10); RED CELL DISTRIBUTION WIDTH 11.2 % (11.6-14.8); WHITE BLOOD COUNT 9.4 K/UL (4.8-10.8)
[2016-12-21 08:31] LABS: CALCIUM 7.9 mg/dL (8.6-10.2); CREATININE 1.3 mg/dL (0.7-1.2); GLOMERULAR FILTRATION RATE 55.4 mL/min (>60); POTASSIUM 3.7 mEQ/L (3.4-4.9)
[2016-12-21] MEDS ORDERED: Naloxone 0.4mg/ml Inj IVP PRN (10:22)
--- NOTE | 2016-12-21 10:26 | General Progress Note ---
Progress Note Progress Note AVSS Feeling much better. No cramping Only c/o is an irritated spot in his throat (since post-op) Tongue slightly coated Abdomen only slightly distended, healing nicely, non-tender Urine 1400 BCIR ileo 4,240 CELINA drain 30 WBC down 9400 Hgb 11.3 (lower) BUN 15 Cr 1.3 (down) Stool for c. difficile toxin - negative Imp. Resolving ileus with excessive ileostomy output Plan: clear liquid diet D/C urinary Mohr continue IV fluids and IV antibiotics f/u labs with iron/B12 levels Nystatin oral suspension DACIA MORELOS Dec 21, 2016 10:26
[2016-12-21] MEDS ORDERED: Rate Change PCA 1 Each MISC PRN (10:30)
[2016-12-21 12:00] VITALS: BP 137/79
[2016-12-21] MEDS ORDERED: PCA HYDROmorphone 1mg/ml 30 ML IV PRN (13:00)
[2016-12-21] MEDS: Nystatin Susp 500,000 units/5ml ORAL SCH ×4 (13:04→20:55)
[2016-12-21 16:00] VITALS: BP 141/75
[2016-12-21 20:00] VITALS: BP 151/81
[2016-12-22] VITALS: BP 151/76
[2016-12-22] MEDS: D5 1/4NS w/KCl 20mEq 1,000 ML IV SCH ×3 (02:00→21:57)
[2016-12-22 04:00] VITALS: BP 147/79
[2016-12-22 05:37] LABS: BASOPHILS % (AUTO) 0.8 % (0.0-2.0); EOSINOPHILS % (AUTO) 4.3 % (0.0-3.0); LYMPHOCYTES % (AUTO) 13.4 % (20.0-45.0); MEAN CORPUSCULAR HEMOGLOBIN 33.7 PG (27.0-31.0); MEAN CORPUSCULAR HGB CONC 35.7 G/DL (32.0-36.0); MEAN CORPUSCULAR VOLUME 95 FL (80-99); MEAN PLATELET VOLUME 5.4 FL (6.5-10.1); MONOCYTES % (AUTO) 13.9 % (1.0-10.0); NEUTROPHILS % (AUTO) 67.6 % (45.0-75.0); PLATELET COUNT 209 K/UL (150-450); RED BLOOD COUNT 3.36 M/UL (4.70-6.10); RED CELL DISTRIBUTION WIDTH 10.8 % (11.6-14.8); WHITE BLOOD COUNT 6.1 K/UL (4.8-10.8)
[2016-12-22] MEDS: Ampicillin/Sulbactam Sod 3 GM in NS 110 ML IV SCH ×5 (06:00→17:50)
[2016-12-22 06:09] LABS: CREATININE 1.3 mg/dL (0.7-1.2); GLOMERULAR FILTRATION RATE 55.4 mL/min (>60); POTASSIUM 3.5 mEQ/L (3.4-4.9)
[2016-12-22 06:17] LABS: HEMOLYSIS 8; IRON 39 ug/dL (59-158); TOTAL IRON BINDING CAPACITY 158 ug/dL (250-400)
[2016-12-22] MEDS: PCA shift volume MISC SCH (07:00)
[2016-12-22 08:00] VITALS: BP 150/88
[2016-12-22] MEDS: Dyna-Hex 2% Top Sol 2oz TOPIC SCH (08:23)
[2016-12-22] MEDS: Benazepril 10mg tab ORAL SCH (08:24)
[2016-12-22] MEDS: Propranolol ER 60mg cap ORAL SCH (08:24)
--- NOTE | 2016-12-22 08:43 | General Progress Note ---
Progress Note Progress Note AVSS Still c/o soreness when swallowing pills or even liquids, with sensation things are not passing through smoothly. Not posterior pharynx but deeper Abdomen still mildly distended and tympanitic. Incisions clean, stoma pink. tolerating clear liquids and voiding well Urine 2049 BCIR ileo 1790 (was 4,240 previous 24 hours) CELINA 10 CBC, BMP both stable and wnl Iron 39 (59-158) B12 412 Imp. 1) resolving ileus 2) painful swallowing Plan: continue clear liquids + add Ensure; decrease IV fluids Venofer and B12 replacement ENT consultation DACIA MORELOS Dec 22, 2016 08:43
[2016-12-22] MEDS ORDERED: Naloxone 0.4mg/ml Inj IVP PRN (08:44)
[2016-12-22] MEDS ORDERED: Zolpidem 5mg tab ORAL PRN (08:45)
[2016-12-22] MEDS ORDERED: Rate Change PCA 1 Each MISC PRN (08:45)
[2016-12-22] MEDS ORDERED: LORazepam 1mg tab SL PRN ×2 (08:45→11:30)
[2016-12-22] MEDS ORDERED: Vitamin B12 1000mcg/ml Inj IM ONE (09:00)
[2016-12-22] MEDS: Nystatin Susp 500,000 units/5ml ORAL SCH ×4 (09:20→21:57)
[2016-12-22 12:00] VITALS: BP 147/81
[2016-12-22] MEDS ORDERED: Lidocaine 2% Visc 15ml soln ORAL PRN (12:15)
[2016-12-22] MEDS ORDERED: D5 1/4NS w/KCl 20mEq 1,000 ML IV SCH (14:00)
[2016-12-22 16:00] VITALS: BP 138/84
[2016-12-22] MEDS: PCA HYDROmorphone 1mg/ml 30 ML IV PRN (16:49)
[2016-12-22] MEDS ORDERED: PCA shift volume MISC SCH (19:00)
[2016-12-22 20:00] VITALS: BP 157/77
[2016-12-22] MEDS: Iron Sucrose 100 MG in NS 55 ML IVPB SCH (20:24)
[2016-12-23] VITALS (11 sets, daily range): BP systolic 131–159; BP diastolic 72–93
[2016-12-23] MEDS: Ampicillin/Sulbactam Sod 3 GM in NS 110 ML IV SCH ×5 (00:08→23:45)
[2016-12-23] MEDS: D5 1/4NS w/KCl 20mEq 1,000 ML IV SCH ×4 (04:40→23:45)
--- NOTE | 2016-12-23 07:07 | General Progress Note ---
Progress Note Progress Note AVSS Persistent painful swallowing with any liquids Abdomen soft, healing nicely Urine 1050 BCIR ileo 2365 CELINA 17.5 Imp: Dysphagia with painful swallowing Plan: GI consultation (Dr. Daniel called) Increase IV fluids npo as may need EGDor video swallowing study, etc DACIA MORELOS Dec 23, 2016 07:07
--- NOTE | 2016-12-23 08:30 | Consultation ---
DATE OF CONSULTATION: 12/22/2016 HEAD AND NECK/OTOLARYNGOLOGY CONSULTATION CONSULTING PHYSICIAN: eTz Bishop M.D. REFERRING PHYSICIAN: Regan Marc M.D. REASON FOR CONSULTATION: Throat pain postoperatively. History of present illness: Chart was reviewed and the history taken. This is a 66-year-old male, who is in good health. He has a long history of ulcerative colitis. He has had recurrent incisional and peristomal hernia involving his prior surgeries for an ileostomy stoma. He has a long history suggestive of ulcerative colitis having undergone proctocolectomy with an ileostomy in 1972. This was revised multiple times. On 12/16/2016, he was again taken to surgery for revision of his parastomal hernia and revision of his stoma. He has had severe postoperative soreness of his throat with dysphagia. He denies coughing, aspiration, history of pyrosis, eructations, or history of gastroesophageal reflux. He is now a clear liquid diet with no choking, but has severe dysphasia since surgery five days ago. PAST MEDICAL HISTORY: 1. Essential tremor. 2. Hypertension. 3. History of ulcerative colitis. 4. Malfunctioning King ileostomy pouch. PAST SURGICAL HISTORY: 1. Multiple surgeries for ulcerative colitis with King ileostomy and creation of a King ileostomy pouch. 2. Inguinal herniorrhaphy. MEDICATIONS: 1. Amlodipine. 2. Benazepril. 3. Primidone. 4. Inderal. ALLERGIES: None. Social History: Smokes, none. Alcohol, socially. Marital status, single. Physical Examination: Reveals a well-developed and well-nourished gentleman with a normal voice, no hoarseness. Height 6 feet 5 inches and weight 217 pounds. Blood pressure is 135/92. Respirations 17. The patient has inflammatory or neoplastic lesions. Ears, canals are patent. Tympanic membranes are intact and mobile with normal hearing. Nose, deviation of septum on the left primarily obstructing the left airway 30%. There are multiple small polyps in both nasal airways. Mouth, good oral hygiene. Tongue is moist without fasciculations. Tonsil are small. Hypopharynx is unremarkable. This will be dictated in a separate operative report. Mobile vocal cords. Neck, no thyromegaly, cervical adenopathy, no bruits. INITIAL IMPRESSION: 1. Nasal polyps. 2. Traumatic intubation causing pharyngitis with mobile vocal cords. Plan: The patient was reassured that his traumatic pharyngitis will gradually improve and no permanent damage was present. Thank you for permitting me to participate in his care. Tez Bishop M.D. DR: AUSTIN JOB#: [id number] CC: Regan Marc M.D.; Fax#: [phone]
--- NOTE | 2016-12-23 08:30 | Operative Note - Dictated ---
DATE OF OPERATION: 12/22/2016 PREOPERATIVE DIAGNOSIS: Severe dysphagia postoperatively. POSTOPERATIVE DIAGNOSIS: Traumatic pharyngitis. Operation Performed: A fiberoptic endoscopy of upper airway with laryngoscopy. SURGEON: Tez Bishop M.D. SPRIGGER: None. ANESTHESIA: Topical Xylocaine with epinephrine and Pontocaine. Indications: This 66-year-old gentleman is five days postoperative abdominal surgery with intubation. He does have severe soreness of his throat with dysphagia with with even liquids. Description Of Operation: The patient was anesthetized with topical Cetacaine and Afrin nasal spray. A flexible fiberoptic scope was inserted into the right naris. Septum was midline. The turbinates were not enlarged or edematous. The scope was then passed into the left naris revealing 20% septal deviation to the left, obstructing left airway 20%. The turbinates normal appearing. There were small 3 mm to 4 mm polyps in the ostiomeatal complex. The scope was then passed into the nasopharynx revealing normal elevation of velum. The scope was passed through the hypopharynx revealing excoriation of the lateral arvizu of the pharynx, the epiglottis, vallecula, piriform sinuses, and larynx was normal with mobile vocal cords. The scope was then removed. The patient was then reassured that his traumatic intubation pharyngitis will spontaneously improve over the next few days. Tez Bishop M.D. DR: NOHELIA/ANGELITO JOB#: [id number] CC:
[2016-12-23] MEDS: Nystatin Susp 500,000 units/5ml ORAL SCH ×4 (09:00→20:18)
[2016-12-23] MEDS: Dyna-Hex 2% Top Sol 2oz TOPIC SCH (09:12)
[2016-12-23] MEDS ORDERED: NS 550ML IV ONE (11:57)
[2016-12-23] MEDS ORDERED: fentaNYL 100 mcg/2 mL IV ONE (12:00)
[2016-12-23] MEDS ORDERED: Propofol 200mg/20ml IV ONE (12:00)
[2016-12-23] MEDS ORDERED: Midazolam 2mg/2ml Inj ONE (12:00)
--- NOTE | 2016-12-23 12:01 | Pre-Procedure Note/Attestation ---
Pre-Procedure Note/Attestation Complete Prior to Procedure Planned Procedure: not applicable Procedure Narrative: egd Indications for Procedure Pre-Operative Diagnosis: dysphagia Attestation I attest that I discussed the nature of the procedure; its benefits; risks and complications; and alternatives (and the risks and benefits of such alternatives ), prior to the procedure, with the patient (or the patient's legal insurance healthcare representative). I attest that, if there was a reasonable possibility of needing a blood transfusion, the patient (or the patient's legal insurance healthcare representative) was given the [facility] standardized written summary, pursuant to the Lucien Glenaire Blood Safety Act ([place] Health and Safety Code # 1645, as amended). I attest that I re-evaluated the patient just prior to the surgery and that there has been no change in the patient's H&P, except as documented below: NATALIE MELVIN Dec 23, 2016 12:01
--- NOTE | 2016-12-23 12:16 | Endoscopy Procedure Note ---
Endoscopy Procedure Note Indication for Procedure: dysphagia Procedures Performed: EGD Operative Findings/Diagnosis: esophagitis Specimen: yes Pt Tolerated Procedure Well: Yes Estimated Blood Loss: none Anesthesiologist: see chart Anesthesia: MAC Implant(s) used?: No 50 yrs or older w/o bx or poly: Not Applicable 10yrs. F/U not recommended: Not Applicable NATALIE MELVIN Dec 23, 2016 12:16
--- NOTE | 2016-12-23 12:19 | Anethesia Preoperative Eval ---
Anesthesia Pre-op PMH/ROS General Date of Evaluation: Dec 23, 2016 Time of Evaluation: 12:00 Anesthesiologist: UMANG ASA Score: ASA 2 Mallampati Score Class I : Soft palate, uvula, fauces, pillars visible Class II: Soft palate, uvula, fauces visible Class III: Soft palate, base of uvula visible Class IV: Only hard plate visible Mallampati Classification: Class II Surgeon: Rema Diagnosis: dysphagia Surgical Procedure: egd Anesthesia History: none Allergies: Coded Allergies: No Known Allergies (Unverified , 07/31/16) Medications: see eMAR Anesthesia Pre-op Phys. Exam Physician Exam Last Vital Signs Date Time Temp Pulse Resp B/P (MAP) Pulse Ox O2 Delivery O2 Flow Rate FiO2 12/23/16 08:00 18 12/23/16 08:00 98.1 57 141/80 98 Room Air 12/18/16 00:00 2.0 Airway Exam Mallampati Score: Class II Saul Jonhson M.D. Dec 23, 2016 12:19
--- NOTE | 2016-12-23 12:21 | 48 Hour Post Anesthesia Eval ---
Post Anesthesia Evaluation Procedure: egd Date of Evaluation: Dec 25, 2016 Time of Evaluation: 12:00 Blood Pressure Systolic: 142 0: 0 Pulse Rate: 76 Respiratory Rate: 16 Temperature (Fahrenheit): 98 O2 Sat by Pulse Oximetry: 99 Airway: patent Nausea: No Vomiting: No Pain Intensity: 0 If pain is > 6 Comment: 0 Hydration Status: adequate Mental Status/LOC: patient returned to baseline Follow-up care needed: patient intructions given Saul Johnson M.D. Dec 23, 2016 12:21
[2016-12-23] MEDS: Sucralfate 1gm tab ORAL SCH ×3 (15:01→20:22)
[2016-12-23] MEDS: Benazepril 10mg tab ORAL SCH (15:02)
[2016-12-23] MEDS: Propranolol ER 60mg cap ORAL SCH (15:02)
[2016-12-23] MEDS: PCA HYDROmorphone 1mg/ml 30 ML IV PRN (19:09)
[2016-12-23] MEDS: Pantoprazole Inj IVP SCH (20:19)
[2016-12-23] MEDS: Iron Sucrose 100 MG in NS 55 ML IVPB SCH (20:21)
[2016-12-24 00:49] VITALS: BP 147/75
[2016-12-24 04:00] VITALS: BP 133/74
[2016-12-24] MEDS: Ampicillin/Sulbactam Sod 3 GM in NS 110 ML IV SCH (05:38)
[2016-12-24] MEDS: D5 1/4NS w/KCl 20mEq 1,000 ML IV SCH (05:38)
[2016-12-24 05:54] LABS: BASOPHILS % (AUTO) 0.9 % (0.0-2.0); EOSINOPHILS % (AUTO) 3.9 % (0.0-3.0); LYMPHOCYTES % (AUTO) 15.7 % (20.0-45.0); MEAN CORPUSCULAR HEMOGLOBIN 34.6 PG (27.0-31.0); MEAN CORPUSCULAR HGB CONC 36.9 G/DL (32.0-36.0); MEAN CORPUSCULAR VOLUME 94 FL (80-99); MEAN PLATELET VOLUME 5.1 FL (6.5-10.1); MONOCYTES % (AUTO) 12.7 % (1.0-10.0); NEUTROPHILS % (AUTO) 66.7 % (45.0-75.0); PLATELET COUNT 212 K/UL (150-450); RED BLOOD COUNT 3.17 M/UL (4.70-6.10); RED CELL DISTRIBUTION WIDTH 10.7 % (11.6-14.8); WHITE BLOOD COUNT 5.2 K/UL (4.8-10.8)
[2016-12-24 06:22] LABS: ANION GAP 10 (5-15); CALCIUM 7.9 mg/dL (8.6-10.2); CARBON DIOXIDE 27 mEQ/L (20-30); CHLORIDE 99 mEQ/L (98-107); CREATININE 1.2 mg/dL (0.7-1.2); GLOMERULAR FILTRATION RATE > 60 mL/min (>60); HEMOLYSIS 2; MAGNESIUM 1.4 mg/dL (1.7-2.5); PHOSPHORUS 2.7 mg/dL (2.5-4.8); POTASSIUM 3.2 mEQ/L (3.4-4.9); SODIUM 136 mEQ/L (135-145)
[2016-12-24] MEDS ORDERED: Rate Change PCA 1 Each MISC PRN (07:30)
[2016-12-24] MEDS ORDERED: Naloxone 0.4mg/ml Inj IVP PRN (07:30)
[2016-12-24] MEDS ORDERED: PCA HYDROmorphone 1mg/ml 30 ML IV PRN (07:30)
[2016-12-24 08:00] VITALS: BP 149/75
[2016-12-24] MEDS: Nystatin Susp 500,000 units/5ml ORAL SCH (08:06)
[2016-12-24] MEDS: Sucralfate 1gm tab ORAL SCH ×4 (08:11→20:30)
[2016-12-24] MEDS: Pantoprazole Inj IVP SCH ×2 (08:11→20:29)
[2016-12-24] MEDS: Propranolol ER 60mg cap ORAL SCH (08:13)
[2016-12-24] MEDS: Dyna-Hex 2% Top Sol 2oz TOPIC SCH (08:14)
[2016-12-24] MEDS: Benazepril 10mg tab ORAL SCH (08:14)
--- NOTE | 2016-12-24 08:47 | Procedure Note ---
DATE OF PROCEDURE: 12/23/2016 SURGEON: Aj Daniel M.D. PROCEDURE: Upper endoscopy with biopsy. ANESTHESIA: Per aSul Johnson M.D. INSTRUMENT: Olympus adult flexible upper endoscope. INDICATION: Dysphagia. REASON FOR PROCEDURE: The procedure, risks, benefits, and possible consequences, including hemorrhage, aspiration, perforation and infection, and alternative treatments, were explained to the patient/legal guardian by Dr. Aj Daniel and the patient/legal guardian understood and accepted these risks. DESCRIPTION OF PROCEDURE: After informed consent was obtained and the patient was adequately sedated, Olympus upper endoscope was advanced from the mouth into the second portion of duodenum and retroflexion maneuver was performed in the stomach. The patient had severe distal erosive esophagitis with ulceration right at the GE junction with a little bit of narrowing. We had to kind of gently push the scope through. In the stomach, there was diffuse gastritis. Random biopsies from antrum and body were obtained to rule out H. pylori infection. At this time, the upper endoscope was retrieved and procedure was terminated. SUMMARY OF FINDINGS: 1. Diffuse severe distal esophagitis with ulceration and a little bit of stricture at the GE junction, but the scope was able to pass through. 2. Gastritis status post biopsy. RECOMMENDATIONS: 1. Reflux measures. 2. PPI and Carafate. 3. Start full liquid diet and advance as tolerated. 4. Follow biopsy results. I want to thank, Dr. Regan Marc, for this kind referral. Aj Daniel M.D. DR: ENOCH JOB#: [id number] CC: Regan Marc M.D.; Fax#: [phone] [facility]
[2016-12-24] MEDS ORDERED: D5 1/2NS w/KCl 40meq 1000ml 1,000 ML IV SCH (09:00)
--- NOTE | 2016-12-24 09:00 | General Progress Note ---
Progress Note Progress Note AVSS Much decreased dysphagia and able to tolerate full liquid diet. EGD revealed distal esophagitis with mild stricture - treated Abdomen soft, but still tympanitic. He does not feel bloated. Healing nicely Urine 1950 BCIR ileo 1585 CELINA 15 WBC 1500 Hgb 11 (getting Venofer) K 3.2 Imp. Esophagitis with pain on swallowing, improving Plan: Maintain full liquid diet today - advance to BCIR low residue diet in AM if stable Increase KCL in IV fluids but decrease IVs D/C antibiotics and WELLNESS RN Maintain continuous drainage of King Pouch Continent Ileostomy Abd XRay re distention DACIA MORELOS Dec 24, 2016 09:00
[2016-12-24] MEDS ORDERED: DiphenhydrAMINE 50mg/ml Inj IVP PRN (10:00)
--- NOTE | 2016-12-24 10:39 | GI Progress Note ---
Assessment/Plan Problems: (1) Abdominal bloating ICD Codes: R14.0 - Abdominal distension (gaseous) SNOMED: 900031014 (2) Anemia ICD Codes: D64.9 - Anemia, unspecified SNOMED: 447144791 (3) Ileostomy dysfunction ICD Codes: K94.13 - Enterostomy malfunction SNOMED: 82360880 Status: stable Status Narrative Discussed with Dr. Daniel. Assessment/Plan s/p EGD SUMMARY OF FINDINGS: 1. Diffuse severe distal esophagitis with ulceration and a little bit of stricture at the GE junction, but the scope was able to pass through. 2. Gastritis status post biopsy. RECOMMENDATIONS: Reflux measures. PPI and Carafate. FLD, adv as tolerated fu biopsy turn q2 and ambulation electrolyte correction fu labs Subjective Subjective feels okay abdominal distention/bloating Objective Last 24 Hour Vital Signs Date Time Temp Pulse Resp B/P (MAP) Pulse Ox O2 Delivery O2 Flow Rate FiO2 12/24/16 09:00 19 12/24/16 08:14 149/75 12/24/16 08:14 59 149/75 12/24/16 08:00 98.4 59 20 149/75 98 Room Air 12/24/16 04:00 97.8 62 19 133/74 99 Room Air 12/24/16 04:00 19 12/24/16 00:49 97.5 54 18 147/75 96 Room Air 12/24/16 00:00 18 12/23/16 20:22 98.1 54 18 142/74 98 Room Air 12/23/16 20:00 18 12/23/16 16:00 20 12/23/16 15:55 98.2 72 20 151/73 98 Room Air 12/23/16 15:02 137/74 12/23/16 15:02 51 137/74 12/23/16 12:40 98.4 51 20 137/74 98 Room Air 12/23/16 12:40 51 20 137/74 98 Nasal Cannula 2.0 12/23/16 12:26 56 20 133/82 98 Nasal Cannula 2.0 12/23/16 12:21 58 20 139/84 98 Nasal Cannula 2.0 12/23/16 12:21 76 16 99 12/23/16 12:16 98.3 67 20 141/81 98 Nasal Cannula 2.0 12/23/16 12:00 18 10/3/17 11:59 98.8 60 20 159/93 99 Room Air Laboratory Tests Test 12/24/16 05:00 White Blood Count 5.2 K/UL (4.8-10.8) Red Blood Count 3.17 M/UL (4.70-6.10) L Hemoglobin 11.0 G/DL (14.2-18.0) L Hematocrit 29.6 % (42.0-52.0) L Mean Corpuscular Volume 94 FL (80-99) Mean Corpuscular Hemoglobin 34.6 PG (27.0-31.0) H Mean Corpuscular Hemoglobin Concent 36.9 G/DL (32.0-36.0) H Red Cell Distribution Width 10.7 % (11.6-14.8) L Platelet Count 212 K/UL (150-450) Mean Platelet Volume 5.1 FL (6.5-10.1) L Neutrophils (%) (Auto) 66.7 % (45.0-75.0) Lymphocytes (%) (Auto) 15.7 % (20.0-45.0) L Monocytes (%) (Auto) 12.7 % (1.0-10.0) H Eosinophils (%) (Auto) 3.9 % (0.0-3.0) H Basophils (%) (Auto) 0.9 % (0.0-2.0) Sodium Level 136 mEQ/L (135-145) Potassium Level 3.2 mEQ/L (3.4-4.9) L Chloride Level 99 mEQ/L (98-107) Carbon Dioxide Level 27 mEQ/L (20-30) Anion Gap 10 (5-15) Blood Urea Nitrogen 9 mg/dL (7-23) Creatinine 1.2 mg/dL (0.7-1.2) Estimat Glomerular Filtration Rate > 60 mL/min (>60) Glucose Level 106 mg/dL (74-106) Calcium Level 7.9 mg/dL (8.6-10.2) L Phosphorus Level 2.7 mg/dL (2.5-4.8) Magnesium Level 1.4 mg/dL (1.7-2.5) L Height (Feet): 6 Height (Inches): 4.00 Weight (Pounds): 215 General Appearance: no apparent distress, alert Cardiovascular: normal rate Respiratory/Chest: normal breath sounds, no respiratory distress Abdominal Exam: normal bowel sounds, non tender, soft Extremities: normal range of motion Judith Pinto N.P. Dec 24, 2016 10:39
[2016-12-24] MEDS: D5 1/2NS w/KCl 40meq 1000ml 1,000 ML IV SCH (10:53)
[2016-12-24] MEDS ORDERED: Norco 5mg/325mg tab ORAL PRN (11:00)
[2016-12-24] MEDS ORDERED: PCA Education Pamphlet MISC SCH (11:10)
--- NOTE | 2016-12-24 11:21 | Diagnostic Imaging Report ---
Indication: Abdominal pain Comparison: 08/08/16 Single view of the abdomen obtained There is a drain in the left lower quadrant of abdomen. There are surgical skin aydee over the left side and in the right groin. Bowel gas pattern is nonspecific. Degenerative changes of the thoracal lumbar spine noted. Impression: No acute findings appreciated. Recent surgery
[2016-12-24 12:00] VITALS: BP 118/68
[2016-12-24 16:00] VITALS: BP 155/79
[2016-12-24] MEDS: Simethicone 80mg tab ORAL SCH ×2 (18:06→20:29)
[2016-12-24] MEDS ORDERED: PCA shift volume MISC SCH (19:00)
[2016-12-24 20:26] VITALS: BP 133/69
[2016-12-24] MEDS: Iron Sucrose 100 MG in NS 55 ML IVPB SCH (20:29)
[2016-12-25] VITALS: BP 135/71
[2016-12-25] MEDS: D5 1/2NS w/KCl 40meq 1000ml 1,000 ML IV SCH (00:05)
[2016-12-25 04:00] VITALS: BP 144/84
[2016-12-25 05:13] LABS: EOSINOPHILS % (AUTO) 3.2 % (0.0-3.0); LYMPHOCYTES % (AUTO) 14.6 % (20.0-45.0); MEAN CORPUSCULAR HEMOGLOBIN 33.5 PG (27.0-31.0); MEAN CORPUSCULAR HGB CONC 35.5 G/DL (32.0-36.0); MEAN CORPUSCULAR VOLUME 94 FL (80-99); MEAN PLATELET VOLUME 5.3 FL (6.5-10.1); MONOCYTES % (AUTO) 13.6 % (1.0-10.0); NEUTROPHILS % (AUTO) 67.6 % (45.0-75.0); PLATELET COUNT 248 K/UL (150-450); RED BLOOD COUNT 3.41 M/UL (4.70-6.10); WHITE BLOOD COUNT 5.7 K/UL (4.8-10.8)
[2016-12-25 05:31] LABS: CALCIUM 8.4 mg/dL (8.6-10.2); CREATININE 1.3 mg/dL (0.7-1.2); GLOMERULAR FILTRATION RATE 55.4 mL/min (>60); MAGNESIUM 1.7 mg/dL (1.7-2.5); POTASSIUM 3.5 mEQ/L (3.4-4.9)
[2016-12-25 08:18] VITALS: BP 136/73
[2016-12-25] MEDS: Simethicone 80mg tab ORAL SCH ×4 (08:28→20:23)
[2016-12-25] MEDS: Propranolol ER 60mg cap ORAL SCH (08:28)
[2016-12-25] MEDS: Sucralfate 1gm tab ORAL SCH ×4 (08:28→20:23)
[2016-12-25] MEDS: Benazepril 10mg tab ORAL SCH (08:28)
[2016-12-25] MEDS: Dyna-Hex 2% Top Sol 2oz TOPIC SCH (08:28)
[2016-12-25] MEDS: Pantoprazole Inj IVP SCH ×2 (08:29→20:24)
--- NOTE | 2016-12-25 08:52 | General Progress Note ---
Progress Note Progress Note AVSS Tolerated BCIR low residue diet this morning. Painful swallowing nearly resolved. No other GI complaints Abdomen still mildly distended and tympanitic, but less than previous days Incisions healing well. Stoma pink CELINA drain removed Urine 2750 BCIR ileo 2465 (took 3020cc po full liquids yesterday) Imp. Improving abdominal/small bowel distention and severe esophagitis with mild stricture and pain Plan: d/c IV fluids continue Venofer maintain continuous drainage of King Pouch continent ileostomy continue strict I&O DACIA MORELOS Dec 25, 2016 08:51
[2016-12-25] MEDS ORDERED: Silver Nitrate Stick TOPIC ONE (10:00)
[2016-12-25] MEDS ORDERED: Iron Sucrose 200 MG in NS 110 ML IV ONE (10:00)
--- NOTE | 2016-12-25 10:39 | GI Progress Note ---
Assessment/Plan Problems: (1) Abdominal bloating ICD Codes: R14.0 - Abdominal distension (gaseous) SNOMED: 157970119 (2) Anemia ICD Codes: D64.9 - Anemia, unspecified SNOMED: 849207989 (3) Ileostomy dysfunction ICD Codes: K94.13 - Enterostomy malfunction SNOMED: 00574917 Status: stable Status Narrative Discussed with Dr. Daniel. Assessment/Plan s/p EGD SUMMARY OF FINDINGS: 1. Diffuse severe distal esophagitis with ulceration and a little bit of stricture at the GE junction, but the scope was able to pass through. 2. Gastritis status post biopsy. KUB negative Cdiff negative RECOMMENDATIONS: cont PPI and Carafate x 1 month, fu with PCP (will place rx in physical chart) FLD, adv as tolerated fu biopsy >> >> unremarkable turn q2 and ambulation electrolyte correction fu labs The patient was seen and examined at bedside and all new and available data was reviewed in the patients chart. I agree with the above findings, impression and plan. (Patient seen earlier today. Signature stamp does not reflect patient encounter time.). -Aj Daniel MD Subjective Subjective feels okay abdominal distention/bloating ambulating Objective Last 24 Hour Vital Signs Date Time Temp Pulse Resp B/P (MAP) Pulse Ox O2 Delivery O2 Flow Rate FiO2 12/25/16 08:28 136/73 12/25/16 08:28 79 136/73 12/25/16 08:18 98.8 79 20 136/73 95 Room Air 12/25/16 04:00 98.5 63 18 144/84 96 Room Air 12/25/16 00:00 98.1 59 18 135/71 96 Room Air 12/24/16 20:26 98.9 59 18 133/69 97 Room Air 12/24/16 16:00 97.8 56 20 155/79 98 Room Air 12/24/16 12:00 98.7 59 19 118/68 97 Room Air Intake and Output 12/25/16 12/26/16 19:00 07:00 Intake Total 240 ml Balance 240 ml Intake Oral 240 ml Laboratory Tests Test 12/25/16 04:30 White Blood Count 5.7 K/UL (4.8-10.8) Red Blood Count 3.41 M/UL (4.70-6.10) L Hemoglobin 11.4 G/DL (14.2-18.0) L Hematocrit 32.1 % (42.0-52.0) L Mean Corpuscular Volume 94 FL (80-99) Mean Corpuscular Hemoglobin 33.5 PG (27.0-31.0) H Mean Corpuscular Hemoglobin Concent 35.5 G/DL (32.0-36.0) Red Cell Distribution Width 11.0 % (11.6-14.8) L Platelet Count 248 K/UL (150-450) Mean Platelet Volume 5.3 FL (6.5-10.1) L Neutrophils (%) (Auto) 67.6 % (45.0-75.0) Lymphocytes (%) (Auto) 14.6 % (20.0-45.0) L Monocytes (%) (Auto) 13.6 % (1.0-10.0) H Eosinophils (%) (Auto) 3.2 % (0.0-3.0) H Basophils (%) (Auto) 1.0 % (0.0-2.0) Sodium Level 140 mEQ/L (135-145) Potassium Level 3.5 mEQ/L (3.4-4.9) Chloride Level 104 mEQ/L (98-107) Carbon Dioxide Level 26 mEQ/L (20-30) Anion Gap 10 (5-15) Blood Urea Nitrogen 7 mg/dL (7-23) Creatinine 1.3 mg/dL (0.7-1.2) H Estimat Glomerular Filtration Rate 55.4 mL/min (>60) Glucose Level 95 mg/dL (74-106) Calcium Level 8.4 mg/dL (8.6-10.2) L Magnesium Level 1.7 mg/dL (1.7-2.5) Height (Feet): 6 Height (Inches): 4.00 Weight (Pounds): 215 General Appearance: no apparent distress, alert Cardiovascular: normal rate Respiratory/Chest: normal breath sounds, no respiratory distress Abdominal Exam: incision site Extremities: normal range of motion Judith Pinto N.P. Dec 25, 2016 10:39 AJ DANIEL Dec 25, 2016 14:54
[2016-12-25 11:53] VITALS: BP 124/78
[2016-12-25 16:43] VITALS: BP 128/77
[2016-12-25 20:00] VITALS: BP 147/85
[2016-12-26] VITALS: BP 129/75
[2016-12-26 04:00] VITALS: BP 149/87
[2016-12-26 04:40] LABS: BASOPHILS % (AUTO) 0.9 % (0.0-2.0); EOSINOPHILS % (AUTO) 2.8 % (0.0-3.0); LYMPHOCYTES % (AUTO) 17.2 % (20.0-45.0); MEAN CORPUSCULAR HEMOGLOBIN 32.4 PG (27.0-31.0); MEAN CORPUSCULAR HGB CONC 34.1 G/DL (32.0-36.0); MEAN CORPUSCULAR VOLUME 95 FL (80-99); MEAN PLATELET VOLUME 5.1 FL (6.5-10.1); MONOCYTES % (AUTO) 13.9 % (1.0-10.0); NEUTROPHILS % (AUTO) 65.3 % (45.0-75.0); PLATELET COUNT 264 K/UL (150-450); RED BLOOD COUNT 3.43 M/UL (4.70-6.10); RED CELL DISTRIBUTION WIDTH 11.1 % (11.6-14.8); WHITE BLOOD COUNT 6.2 K/UL (4.8-10.8)
[2016-12-26 05:33] LABS: CALCIUM 8.5 mg/dL (8.6-10.2); CREATININE 1.6 mg/dL (0.7-1.2); GLOMERULAR FILTRATION RATE 43.6 mL/min (>60); POTASSIUM 3.5 mEQ/L (3.4-4.9)
[2016-12-26] MEDS: Propranolol ER 60mg cap ORAL SCH (08:20)
[2016-12-26] MEDS: Simethicone 80mg tab ORAL SCH ×4 (08:21→21:25)
[2016-12-26] MEDS: Dyna-Hex 2% Top Sol 2oz TOPIC SCH (08:21)
[2016-12-26] MEDS: Sucralfate 1gm tab ORAL SCH ×4 (08:21→21:25)
[2016-12-26] MEDS: Benazepril 10mg tab ORAL SCH (08:21)
[2016-12-26] MEDS: Pantoprazole Inj IVP SCH (08:22)
[2016-12-26 08:43] VITALS: BP 145/77
[2016-12-26] MEDS ORDERED: metroNIDAZOLE 500mg tab ORAL STA (09:03)
--- NOTE | 2016-12-26 09:26 | General Progress Note ---
Progress Note Progress Note AVSS Feeling much better.re swallowing. tolerating BCIR low residue diet Abdomen still somewhat distended and tympanitic. Incisions clean. AgNo3 to stoma irregularities Urine 1300 (down) BCIR ileo 2315 and watery BUN up 16 Cr up 1.6 Imp. High volume ileostomy output consistent with pouchitis/bacterial pvergrowth enteritis Mild dehydration Plan: IV hydration Start Flagyl 500mg po STAT then 250mg po TID Rx Protonix 40mg #60 1po q12h x [address] María Landry 1gm #120 one po QID x i month anticipate discharge tomorrow if stable/improved DACIA MORELOS Dec 26, 2016 09:26
[2016-12-26] MEDS: D5 1/4NS w/KCl 20mEq 1,000 ML IV SCH ×2 (10:19→19:30)
--- NOTE | 2016-12-26 10:41 | GI Progress Note ---
Assessment/Plan Problems: (1) Abdominal bloating ICD Codes: R14.0 - Abdominal distension (gaseous) SNOMED: 813450534 (2) Anemia ICD Codes: D64.9 - Anemia, unspecified SNOMED: 540848818 (3) Ileostomy dysfunction ICD Codes: K94.13 - Enterostomy malfunction SNOMED: 00153929 Status: stable, unchanged Status Narrative Discussed with Dr. Daniel. Assessment/Plan s/p EGD SUMMARY OF FINDINGS: 1. Diffuse severe distal esophagitis with ulceration and a little bit of stricture at the GE junction, but the scope was able to pass through. 2. Gastritis status post biopsy. KUB negative Cdiff negative RECOMMENDATIONS: cont PPI and Carafate x 1 month, fu with PCP or primary GI BCIR diet fu biopsy >> >> unremarkable turn q2 and ambulation electrolyte correction fu labs Subjective Subjective feels okay abdominal distention/bloating ambulating Objective Last 24 Hour Vital Signs Date Time Temp Pulse Resp B/P (MAP) Pulse Ox O2 Delivery O2 Flow Rate FiO2 12/26/16 08:43 98.0 63 20 145/77 98 Room Air 12/26/16 08:21 149/87 12/26/16 08:20 63 149/87 12/26/16 04:00 97.9 63 18 149/87 97 Room Air 12/26/16 00:00 97.7 60 18 129/75 95 Room Air 12/25/16 20:00 98.5 66 18 147/85 99 Room Air 12/25/16 16:43 98.4 65 20 128/77 99 Room Air 12/25/16 11:53 98.5 82 20 124/78 96 Room Air Intake and Output 12/26/16 12/27/16 19:00 07:00 Intake Total 200 ml Output Total 300 ml Balance -100 ml Intake Oral 200 ml Output Urine Total 300 ml Laboratory Tests Test 12/26/16 04:15 White Blood Count 6.2 K/UL (4.8-10.8) Red Blood Count 3.43 M/UL (4.70-6.10) L Hemoglobin 11.1 G/DL (14.2-18.0) L Hematocrit 32.6 % (42.0-52.0) L Mean Corpuscular Volume 95 FL (80-99) Mean Corpuscular Hemoglobin 32.4 PG (27.0-31.0) H Mean Corpuscular Hemoglobin Concent 34.1 G/DL (32.0-36.0) Red Cell Distribution Width 11.1 % (11.6-14.8) L Platelet Count 264 K/UL (150-450) Mean Platelet Volume 5.1 FL (6.5-10.1) L Neutrophils (%) (Auto) 65.3 % (45.0-75.0) Lymphocytes (%) (Auto) 17.2 % (20.0-45.0) L Monocytes (%) (Auto) 13.9 % (1.0-10.0) H Eosinophils (%) (Auto) 2.8 % (0.0-3.0) Basophils (%) (Auto) 0.9 % (0.0-2.0) Sodium Level 141 mEQ/L (135-145) Potassium Level 3.5 mEQ/L (3.4-4.9) Chloride Level 105 mEQ/L (98-107) Carbon Dioxide Level 24 mEQ/L (20-30) Anion Gap 12 (5-15) Blood Urea Nitrogen 16 mg/dL (7-23) Creatinine 1.6 mg/dL (0.7-1.2) H Estimat Glomerular Filtration Rate 43.6 mL/min (>60) Glucose Level 92 mg/dL (74-106) Calcium Level 8.5 mg/dL (8.6-10.2) L Height (Feet): 6 Height (Inches): 4.00 Weight (Pounds): 215 General Appearance: no apparent distress, alert Cardiovascular: normal rate Respiratory/Chest: normal breath sounds, no respiratory distress Abdominal Exam: normal bowel sounds, non tender, soft Extremities: normal range of motion Judith Pinto N.P. Dec 26, 2016 10:41
[2016-12-26 12:00] VITALS: BP 146/84
[2016-12-26] MEDS: metroNIDAZOLE 250mg tab ORAL SCH ×2 (12:19→17:12)
[2016-12-26 16:00] VITALS: BP 140/87
[2016-12-26] MEDS ORDERED: NS Irrig 1000ml ONE (17:05)
[2016-12-26] MEDS ORDERED: Tubing IV Secondary IV ONE (17:05)
[2016-12-26] MEDS ORDERED: D5 1/2NS 1000ml IV ONE (17:06)
[2016-12-26 20:00] VITALS: BP 158/84
[2016-12-27 04:00] VITALS: BP 131/71
[2016-12-27 05:23] LABS: BASOPHILS % (AUTO) 0.6 % (0.0-2.0); EOSINOPHILS % (AUTO) 2.9 % (0.0-3.0); LYMPHOCYTES % (AUTO) 17.7 % (20.0-45.0); MEAN CORPUSCULAR HEMOGLOBIN 32.5 PG (27.0-31.0); MEAN CORPUSCULAR HGB CONC 34.4 G/DL (32.0-36.0); MEAN CORPUSCULAR VOLUME 95 FL (80-99); MEAN PLATELET VOLUME 4.8 FL (6.5-10.1); MONOCYTES % (AUTO) 12.7 % (1.0-10.0); NEUTROPHILS % (AUTO) 66.1 % (45.0-75.0); PLATELET COUNT 248 K/UL (150-450); RED CELL DISTRIBUTION WIDTH 10.8 % (11.6-14.8); WHITE BLOOD COUNT 6.1 K/UL (4.8-10.8)
[2016-12-27 05:44] LABS: CREATININE 1.4 mg/dL (0.7-1.2); GLOMERULAR FILTRATION RATE 50.9 mL/min (>60); POTASSIUM 3.8 mEQ/L (3.4-4.9)
[2016-12-27] MEDS: D5 1/4NS w/KCl 20mEq 1,000 ML IV SCH (06:19)
[2016-12-27 08:00] VITALS: BP 131/72
[2016-12-27] MEDS: Sucralfate 1gm tab ORAL SCH ×2 (08:40→13:33)
[2016-12-27] MEDS: Propranolol ER 60mg cap ORAL SCH (08:40)
[2016-12-27] MEDS: Simethicone 80mg tab ORAL SCH ×2 (08:40→13:33)
[2016-12-27] MEDS: metroNIDAZOLE 250mg tab ORAL SCH ×2 (08:40→13:33)
[2016-12-27] MEDS: Benazepril 10mg tab ORAL SCH (08:41)
[2016-12-27] MEDS: Dyna-Hex 2% Top Sol 2oz TOPIC SCH (08:42)
--- NOTE | 2016-12-27 08:59 | General Progress Note ---
Progress Note Progress Note AVSS Feeling well. Ileostomy output now normal volume and consistency since starting oral Flagyl and IV fluids yesterday AM Abdomen soft, still slightly tympanitic William and sutures removed and steristrips applied -nicely healed Urine 1660 BCIR ileo 1540 WBC 6100 Hgb 10.7 BUN 15 Cr down 1.4 Imp: Pouchitis/bacterial overgrowth enteritis - improved with oral Flagyl Esophagitis with mild stricture - improved with Protonix + Carafate Mild dehydration - resolved Plan: discharge with BCIR ileo catheter plugged - he will remove it in AM and start self-intubations supplies/limitations/instructions provided/discussed to wear abdominal binder all day every day f/u office 12/30 remove PIC line now continue Flagyl 250mg po TID x 5 days continue Protonix 40mg po q12h and carafate 1gm po QID x 1 month DACIA MORELOS Dec 27, 2016 08:59
[2016-12-27 12:00] VITALS: BP 137/77
--- NOTE | 2017-01-01 01:46 | Discharge Summary ---
DATE OF ADMISSION: 12/16/2016 DATE OF DISCHARGE: 12/27/2016 HISTORY OF PRESENT ILLNESS: The patient is a 66-year-old male in overall good health with a recurrent incisional and parastomal hernia involving his paramedian incision and the right lower quadrant associated with recurrent mild prolapse of his King continent ileostomy stoma. The patient has a past history of ulcerative colitis and underwent proctocolectomy with conventional Susannah ileostomy in 1972. In 2012 in [place] he underwent conversion of his malfunctioning conventional ileostomy to a King type of Kock pouch continent ileostomy and underwent multiple revisions by surgeons in [place] and [place]. In April 2015 he underwent surgery by [place] with resection of his failed King continent ileostomy and creation of a new King pouch. He has required revisions including laparotomy for valve prolapse on 08/01/2016 and repair of recurrent parastomal hernia and revision of stoma for prolapse on 09/05/2016. Despite all of this, he has developed failure of the entire right lower quadrant abdominal wall with marked bulging and recurrent prolapse, which reduces when the patient lies supine. He is able to intubate his King continent ileostomy pouch without difficulty and is not having any incontinence. The patient was admitted to undergo pouch endoscopy and preparation for surgery to include laparotomy with relocation of his King pouch stoma and repair of recurrent incisional and right lower quadrant parastomal hernia. MEDICATIONS: The patient takes amlodipine, benazepril, and primidone for hypertension. 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 ALLERGIES TO MEDICATIONS: None. OPERATIONS: See complete list at the end of this dictation. He has also undergone repair of inguinal hernia, but is not sure which side. PHYSICAL EXAMINATION: GENERAL: The patient is 6 foot 5 inches and approximately 215 pounds. ABDOMEN: Examination revealed the abdomen to be large and soft without distention. There is a long left paramedian incision, which in the lower aspect becomes a midline incision. There is a recurrent incisional hernia approximately 6 cm below the superior pole of his long scar measuring 4 x 4 cm projecting to the right. The remainder of the incision shows some weakness, but no discrete hernia. The stoma of the King continent ileostomy pouch is low in the right lower quadrant and the entire lower half of the right lower quadrant abdominal wall has become a recurrent hernia. When standing erect, after a few minutes the stoma prolapsed to several centimeters above the skin junction, but reduced readily spontaneously when supine. The patient underwent endoscopy of his King pouch without any sedation or anesthesia on the day of admission, which revealed a normal pouch and well-formed nipple valve. Following endoscopy, an indwelling 28-Kyr[place] Mohr catheter was placed into the pouch connected to continuous gravity drainage. The patient underwent bowel prep, insertion of a dual lumen PICC line for concomitant intravenous hydration continued overnight, and preoperative intravenous antibiotics and subcutaneous heparin. The patient was taken to surgery on 01/16/2017 and underwent laparotomy with relocation of the King continent ileostomy stoma to the left lower quadrant and repair of right lower quadrant recurrent parastomal/incisional hernia with primary repair. He was also found to have very attenuated fascia throughout the length of the incision including the actual herniation. This was repaired the full length of the vertical incision with DualMesh. Postoperatively, the patient was maintained NPO with pain control with Dilaudid [employer] and indwelling King pouch catheter to continuous gravity drainage. He also had a Robson-Bledsoe drain extending from the right lower quadrant hernia repair to the superior pole of the epigastric portion of the incisional hernia repair of the paramedian/midline incision. A binder was used to help when ambulating. His preoperative hemoglobin was 13.2, which fell to 11.3 postoperatively. He had a serum iron of 39, normal range 59 to 158 and received Venofer 500 mg intravenously during his stay. He had vitamin B12 level of 412, normal range 211 to 946 and received 1 intramuscular injection of 1000 mcg vitamin B12. On admission, his BUN was 32 and creatinine 1.8. In the morning before surgery with hydration, his BUN was 24 with creatinine 1.6. During his hospital stay, his creatinine fell to a low of 1.2 and on discharge was 1.4 with a BUN of 15. The patient had an ileus and was maintained NPO with urinary Mohr catheter as well. He was able to be started on a clear liquid diet on the fourth postoperative day and urinary Mohr catheter removed that day. He was having some pharyngeal pain and the tongue was slightly coated. He was started on nystatin oral suspension. He had a very large volume of continent ileostomy output over 4 liters in 24 hours and C. difficile toxin was negative. He had complaints the next day of painful swallowing and was seen by [facility], who found some irritation of the posterior pharynx he felt will resolve, however, the patient's painful swallowing increased and it became clear that there was more than pharyngeal irritation. He was seen in consultation by Dr. Daniel of GI who performed upper GI endoscopy revealing distal esophagitis with mild stricture. This was dilated with the endoscope and he was started on Protonix 40 mg every 12 hours and Carafate 1 gram four times a day. His symptoms improved rapidly. He was tolerating a full liquid diet, but his abdomen was somewhat distended and tympanitic, although the patient did not feel bloated. A two-view abdomen x-ray revealed some gas filled dilated loops of small bowel and stomach. He was treated with simethicone. He improved and the painful swallowing resolved promptly with treatment following the endoscopy. He was advanced to a low-residue diet and intravenous fluids were discontinued. He tolerated this well, but developed once again high volume ileostomy output, which was very watery and the diagnosis was made of bacterial overgrowth enteritis/pouchitis. He was started on Flagyl 500 mg one time stat and then 250 mg by mouth three times a day. He seemed to have mild dehydration with lower urinary output and was given intravenous fluids through his PICC line for 24 hours. The following morning on the day of discharge, which was the tenth postoperative day, his ileostomy output had normalized to 1500 mL in 24 hours with more thickening of the consistency. His intravenous fluids and PICC line were discontinued and removed. He was given medications including Protonix 40 mg #60 and Carafate 1 g #120 to continue treatment for one month. The patient was to continue Flagyl 250 mg by mouth three times daily at home and to wear his abdominal binder all day everyday. He was discharged with full supplies, instructions, and limitations provided and discussed to be followed up with an office telephone appointment in three days. He was discharged with the indwelling King pouch catheter plugged, but sutured in place. He will remove it after he returns home to [place] the day after discharge and then he will start self-intubations. DISCHARGE DIAGNOSES: 1. Malfunctioning King continent ileostomy with recurrent parastomal hernia and mucosal prolapse and recurrent ventral incisional hernia. 2. History of ulcerative colitis. 3. Hypertension. 4. Essential tremor. 5. Status post multiple abdominal operations. 5.1. Proctocolectomy and Susannah ileostomy 1972. 5.2. Laparotomy to release small bowel obstruction from adhesions 1973 5.3. King continent ileostomy in April 2012 5.4 Creation of new valve and collar for King pouch 10/2012. 5.5. Creation of another new valve and collar in 02/2013. 5.6. Repair of King pouch slipped valve in 02/2014. 5.7. Revision of King pouch and repair of incisional and parastomal hernia 10/2014. (All of these operations were performed elsewhere.) 5.8. Laparotomy with resection of failed King continent ileostomy and creation of a new King pouch 05/02/2015. 5.9. Laparotomy with revision of King pouch valve, access segment and stoma, and repair of recurrent incisional hernia 03/05/2016. 5.10. Laparotomy with revision of King continent ileostomy valve prolapse 08/01/2016. 5.11. Repair of recurrent parastomal hernia and revision of King pouch stoma 09/05/2016. OPERATION PERFORMED ON THIS ADMISSION: 1. Laparotomy with relocation of King continent ileostomy stoma to the left lower quadrant and repair of recurrent right lower quadrant hernia primarily. 2. Repair of recurrent incisional hernia with DualMesh. Regan Marc M.D. DR: MICHAEL JOB#: [id number] CC: DANNY
== END 2016-12-27 14:20 | disposition home or self-care (01) | DRG 330 ==
LOC: 3E 09:57
PROC: 0DJD8ZZ Inspection of Lower Intestinal Tract, Via Natural or Artificial Opening Endoscopic (ICD-10-PCS; 2016-12-16)
PROC: 02HV33Z Insertion of Infusion Device into Superior Vena Cava, Percutaneous Approach (ICD-10-PCS; 2016-12-16)
PROC: 0WUF0JZ Supplement Abdominal Wall with Synthetic Substitute, Open Approach (ICD-10-PCS; principal; 2016-12-17 07:30)
PROC: 0D1B0Z4 Bypass Ileum to Cutaneous, Open Approach (ICD-10-PCS; principal; 2016-12-17 07:30)
PROC: 0WQFXZ2 Repair Abdominal Wall, Stoma, External Approach (ICD-10-PCS; principal; 2016-12-17 07:30)
PROC: 0CJS8ZZ Inspection of Larynx, Via Natural or Artificial Opening Endoscopic (ICD-10-PCS; 2016-12-22)
PROC: 0DB78ZX Excision of Stomach, Pylorus, Via Natural or Artificial Opening Endoscopic, Diagnostic (ICD-10-PCS; 2016-12-23)
PROC: 0DB68ZX Excision of Stomach, Via Natural or Artificial Opening Endoscopic, Diagnostic (ICD-10-PCS; 2016-12-23)
DX: K43.5 Parastomal hernia without obstruction or gangrene (principal); K56.7 Ileus, unspecified; I10 Essential (primary) hypertension; K94.13 Enterostomy malfunction; K91.850 Pouchitis; K43.2 Incisional hernia without obstruction or gangrene; Y83.3 Surgical operation with formation of external stoma as the cause of abnormal reaction of the patient, or of later complication, without mention of misadventure at the time of the procedure; R25.1 Tremor, unspecified; R13.10 Dysphagia, unspecified; Z87.19 Personal history of other diseases of the digestive system; K20.8 Other esophagitis; K29.70 Gastritis, unspecified, without bleeding; R14.0 Abdominal distension (gaseous); Y83.8 Other surgical procedures as the cause of abnormal reaction of the patient, or of later complication, without mention of misadventure at the time of the procedure; E86.0 Dehydration
CPT/HCPCS: 36415; 36569; 71010; 74020; 76937; 80048; 80053; 81003; 82607; 83540; 83550; 83735; 84100; 85025; 85610; 85730; 86850; 86870; 86900; 86901; 87324; 93005; 94003; 94150; J2250; J2405; J2710; J2765